=== PATIENT | female | born 1965 | race Caucasian/White ===

== ENCOUNTER → 2018-03-24 07:01 | Outpatient (CLI) | payer BC, SELFPAY ==
[2018-03-24 09:38] LABS: Anion Gap 8 (5-15); BUN 8 mg/dL (7-18); BUN/Creat Ratio 13.9 RATIO (10-20); Chloride 104 mmol/L (98-107); Cholesterol 183 mg/dL (200); Creatinine, Serum 0.58 mg/dL (0.55-1.02); EST Glomerular Filtration Rate 117 mL/min (>60); Est Glom Filt Rate - Afr Amer 141 mL/min (>60); Glucose 92 mg/dL (74-106); High Density Lipoprotein 32 mg/dL; Potassium 3.9 mmol/L (3.5-5.1); Sodium Level 140 mmol/L (136-145); Thyroid Stim Hormone (TSH) 4.23 uIU/mL (0.358-3.74); Triglycerides 185 mg/dL; Very Low Density Lipoprotein 37 mg/dL (5-40)
[2018-03-24 12:33] LABS: Vitamin D,25 Hydroxy 52.7 ng/mL (29.95-100.01)
--- OUTSIDE RECORDS SUMMARY | 2018-05-18 18:17 | XMS RPT_ITS ---
:1965 Author Organization OHIP Care Team Providers Name Role Phone Lorenzo, Dr. Avelino Mcguire Attending Unavailable Lorenzo, Dr. Avelino Mcguire Admitting Unavailable Lorenzo, Dr. Avelino Mcguire Admitting Unavailable Lorenzo, Dr. Avelino Mcguire Attending Unavailable Nichole Conde Attending Unavailable Jomar Block Primary Care Unavailable Jomar Block Primary Care Unavailable London Soria Attending Unavailable Dick Corrigan Attending Unavailable Dick Corrigan Referring Unavailable Dick Corrigan Primary Care Unavailable NICHOLE CYR (PA-C) Referring Unavailable NICHOLE CYR (PA-C) Referring Unavailable CALIXTO MORRIS Referring Unavailable AVELINO PRO Referring Unavailable CALIXTO MORRIS Referring Unavailable CALIXTO MORRIS Attending Unavailable CALIXTO MORRIS Referring Unavailable CALIXTO MORRIS Attending Unavailable CALIXTO MORRIS Referring Unavailable CALIXTO MORRIS Attending Unavailable CALIXTO MORRIS Referring Unavailable PROBLEMS PROBLEMS DATE TYPE CONDITION / CODE ATTENDING STATUS SOURCE Unknown Z00.00 - Encounter Dick Corrigan Active [place] 8 for general [facility] [place] without abnormal Repository findings / Z00.00(ICD-10) Final Decreased libido / Dr. Lorenzo Active [place] 8 diagnosis R68.82(ICD-10) [facility] (discharge) Repository Final Pain in unspecified Dr. Lorenzo Active [place] 8 diagnosis joint / [facility] (discharge) M25.50(ICD-10) Repository Final Malignant neoplasm of Dr. Lorenzo Active [place] 8 diagnosis unspecified ovary / [facility] (discharge) C56.9(ICD-10) Repository Final Solitary pulmonary Dr. 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 [place] [facility] Main coronary artery [place] without angina Repository pectoris / I25.10(ICD-10) Active Unknown / NA Active [place] 8 UNK(Unknown) Clinic Main [place] Repository Admitting Unknown / CALIXTO MORRIS Active [place] [address] diagnosis UN(Unknown) [facility] System Repository Active Nonrheumatic mitral NA Active [place] 8 (valve) insufficiency Clinic Main / I34.0(ICD-10) [place] Repository Active Essential (primary) NA Active [place] 8 hypertension / Clinic Main I10(ICD-10) [place] Repository Active Chest pain, NA Active [place] 8 unspecified / Clinic Main R07.9(ICD-10) [place] Repository Unknown R07.89 - Other chest London Soria Active [place] pain / R07.89(ICD-10) [facility] Repository Unknown Z79.811 - senior customer service representative Josephine DOAN, Active [place] (current) use of [facility] aromatase inhibitors [facility] / Z79.811(ICD-10) Repository Unknown R07.81 - Pleurodynia Josephine LAST MODEL DEPARTMENT SUPERVISOR, Active [place] / R07.81(ICD-10) [facility] Repository Active senior customer service representative (current) NA Active [place] [address] use of aromatase Clinic Main inhibitors / [place] Z79.811(ICD-10) Repository Active Pleurodynia / NA Active [place] 7 R07.81(ICD-10) Clinic Main [place] Repository PROCEDURES PROCEDURES No Procedure Records FoundRESULTS RESULTS BASIC METABOLIC Collected: 03/24/2018 Status: F Source: [place] PROFILE (BMP) 7:11 AM [facility] REPOSITORY TYPE CODE TESTS RESULT OUT OF RANGE REFERENCE UNITS LAB L501.0100 74-106 mg/dL Normal GLU 92 Result Comment: Please note revised GLUCOSE reference range effective 2017. LAB L501.1000 7-18 mg/dL Normal BUN 8 LAB L501.1100 0.55-1.02 mg/dL Normal CREAT,SERUM 0.58 Result Comment: The validity of the calculated GFR AND GFRAA in patients over 70 years has not been determined. Clinical correlation is essential. LAB L501.1110 >60 mL/min Normal EST GFR 117 Result Comment: Non- GFR Calc LAB L501.1115 >60 mL/min Normal EST GFR - AA 141 Result Comment: GFR Calc LAB L501.1300 10-20 RATIO Normal BUN/CRE 13.9 LAB L501.2200 8.5-10.1 mg/dL CA Normal 9.0 LAB L501.5300 136-145 mmol/L NA Normal 140 LAB L501.5600 3.5-5.1 mmol/L K Normal 3.9 LAB L501.5900 98-107 mmol/L CL Normal 104 LAB L501.6100 21.0-32.0 mmol/L Normal CO2 28.0 LAB L501.6200 5-15 Normal GAP 8 Performed By: #### L500.2500, L500.4100, L501.9520 #### [facility] [address] [place], [place], [address] LIPID PROFILE Collected: 03/24/2018 Status: F Source: [place] 7:11 AM [facility] REPOSITORY TYPE CODE TESTS RESULT OUT OF RANGE REFERENCE UNITS LAB L501.4900 200 mg/dL Normal CHOL 183 Result Comment: <200 mg/dL Desirable 200-240 mg/dL Borderline >240 mg/dL High Risk LAB L501.5000 mg/dL Normal TRIG 185 Result Comment: The drugs N-Acetylcysteine and Metamizole may falsely depress this assay. Serum Triglycerides Reference Interval Normal <150 mg/dL Borderline high 150 - 199 mg/dL High 200 - 499 mg/dL Very High > or = 500 mg/dL LAB L501.6400 mg/dL Low HDL 32 Result Comment: The drugs N-Acetylcysteine and Metamizole may falsely depress this assay. Reference Range HDL <40 mg/dL Low HDL Cholesterol HDL >or= 60 mg/dL High HDL Cholesterol LAB L501.6500 0-130 mg/dL Normal LDL 114 LAB L501.6600 5-40 mg/dL Normal VLDL 37 Performed By: #### L500.2500, L500.4100, L501.9520 #### [facility] [address] [place], [address] THYROID STIM HORMONE Collected: 03/24/2018 Status: F Source: [place] (TSH) 7:11 AM [facility] REPOSITORY TYPE CODE TESTS RESULT OUT OF RANGE REFERENCE UNITS LAB L501.9520 0.358-3.74 uIU/mL High TSH 4.23 Performed By: #### L500.2500, L500.4100, L501.9520 #### [facility] [address] [place], [place], [address] VITAMIN D,25 HYDROXY Collected: 03/24/2018 Status: F Source: [place] 7:11 AM [facility] REPOSITORY TYPE CODE TESTS RESULT OUT OF RANGE REFERENCE UNITS LAB L506.1000 29.95-100.01 ng/mL Normal Vitamin D 52.7 25-OH Result Comment: Vitamin D 25(OH) Status Range Deficiency <20 ng/mL (50nmol/L) Insuffciency 20 - 30 ng/mL (50 - 75 nmol/L) Sufficiency 30 - 100 ng/mL (75 - 250 nmol/L) Toxicity >100 ng/mL (>250 nmol/L) Performed By: #### L506.1000 #### [facility] [address] [place], [address] ESTRADIOL Collected: 03/22/2018 Status: F Source: [place] 1:55 PM [facility]OSPITALS REPOSITORY TYPE CODE TESTS RESULT OUT OF REFERENCE UNITS RANGE LAB ESTRA(LOIN pg/mL C) ESTRADIOL 14 Result Comment: Patients receiving more than 5 mg/day of biotin may have interference in test results. A sample should be taken no sooner than eight hours after previous dose. Contact [phone] for additional information. REF VALUES FOLLICULAR PHASE 20-144 MID CYCLE 64-357 LUTEAL PHASE 56-214 POSTMENOPAUSE < 32 PREPUBERTY < 20 MALE 10-18Y < 20 ADULT MALE < 40 Performed By: #### ESTRA #### [facility] [address] [place] [address] CLINIC NOTE - ROCKBOARD LATHER Observed: 03/22/2018 Status: COMPLETED Source: [place] ONC-FOLLOW UP VISIT 1:15 PM HOSPITALS REPOSITORY Patient Visit Information: Onco- Fertility: Visit Type: Follow Up Visit Patient Visit Info: Vitals: Temp: 36.8 HR: 74 RR: 18 BP: 158/89 SPO2%: 100 Measurements: HT(cm): 163 WT(kg): 81.7 BSA: 1.92 BMI: 30.7 Last 3 Weights & Heights: Date: Weight/Scale Type:Height: 22-Mar-2018 12:5181.7 kg / standing cm 14-Sep-2017 14:4088.1 kg / standing cm History of Present Illness: Patient Information: AYAH GOODE is a 52 year old Female Chief Complaint: Here for a follow-up visit Treatment History: 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 Initial treatment was with a partial oophorectomy. In July 2009 she underwent a laparotomy, hysterectomy, bilateral salpingo-oophorectomy omentectomy, diaphragm stripping and peritoneal washings. She had a granulosa cell tumor in the right ovary which had ruptured. No evidence of cancer involving other specimens. She was followed without additional treatment and was monitored with inhibin B levels and estradiol levels. In July 2014 her inhibin was 20, having been under 10 for prior few years. CAT scan in July 2014 showed a 3 cm lobular soft tissue mass between the bladder and sigmoid colon. She was taken to the operating room at the [facility] on September 01, 2014. She underwent resection of a recurrent granulosa cell tumor to no visible disease. When seen for a postoperative assessment by her gynecologic oncologist, discussion of adjuvant therapy included participation in GOG trial 264, randomizing patients between bleomycin, etoposide, and cis- big lagoon versus paclitaxel and carboplatin. She was not willing to undergo chance of randomization and was leaning against having chemotherapy. She spent some time reviewing other options, including speaking to friends on a granulosa cell tumor support group and has began treatment with letrozole, 2.5 mg daily. Following surgery, her tumor was assessed for estrogen and progestin receptors and found to be positive for both estrogen and progestin receptors, with estrogen receptor positivity 1-2+, and stronger progesterone receptor expression. Tumor was also sent for genetic testing, and these results were reviewed showing presence of progesterone receptor, as well as a variety of other gene abnormalities suggesting possible benefit of drugs including big lagoon, taxanes, gemcitabine, Doxil, and hormonal agents including letrozole or tamoxifen. CT of the abdomen and pelvis on January 02, 2015 showed no evidence of relapse of cancer. She had evidence of fatty liver. No ascites. Inhibin B level is less than 10, and estradiol is less than 12 on testing in August 2015. Anti-mullerian hormone less than 0.015. January 12, 2016, estradiol 21. Anti-mullerian hormone less than 0.015. Inhibin B less than 10 CT scan on January 26, 2016 shows no evidence of recurrent disease in the abdomen or pelvis. There was a small indeterminant left pulmonary nodule measuring 2 mm. This may be new. She has a stable right nodule, probably a granuloma, measuring 7 mm. Inhibin B August 15, 2016 less than 10 Anti mullerian hormone August 15, 2016 less than 0.015 Estradiol August 15, [address] scan omentum pelvis August 03, 2016 no evidence of developing recurrent disease. Inhibin B February 10, 2017 less than 10 Anti-mllerian hormone February 10, 2017 less than 0.015 Inhibin B, anti-mullerian hormone, and estradiol levels on August 25, 2017 were normal, and identical to values obtained in July 2016 Inhibin B, anti-mullerian hormone on February 09, 2018 were normal, and identical to values obtained in August 2017 Allergies and Outpatient Medication Profile: Allergies: tetracycline: Drug, Rash, Active ampicillin: Drug, Rash, Active erythromycin: Drug, Rash, Active Sulfac 10%: Drug, Rash, Active doxycycline: Drug, Rash, Active Outpatient Medication Profile: * Patient Currently Takes Medications as of 22-Mar-2018 12:53 documented in Structured Notes letrozole 2.5 mg oral tablet: 1 tab(s) orally once a day, Start Date: 19-Jun-2017 Interval History, ROS and Problem List: Interval History and ROS: Interval History and ROS Patient reports she continues to have side effects related to letrozole including joint pain, hair loss, foggy memory. She also has anxiety but is not interested in medications. She took the month of December 2017 off and did not take her letrozole due to family issues and states her memory cleared up. She is anxious when she is not on the medication though. System ReviewAll other systems have been reviewed and are negative for complaint. Problem List: Medical History: Nodule of left lung: Status: Active Decreased libido: Status: Active Joint pain following chemotherapy: Status: Active Patient on antineoplastic chemotherapy regimen: Status: Active Malignant neoplasm of ovary: Status: Active Family History: Family History: No Family History items are recorded in the problem list. Physical Exam: Constitutional: Well developed, awake/alert/oriented x3, no distress, alert and cooperative Eyes: PERRL, EOMI, clear sclera ENMT: mucous membranes moist, no apparent injury, no lesions seen Head/Neck: Neck supple, no apparent injury, thyroid without mass or tenderness, No JVD, trachea midline, no bruits Respiratory/Thorax: Respirations unlabored. Chest clear. Cardiovascular: Regular rate and rhythm. No audible murmur. No jugular venous distention. Gastrointestinal: Abdomen obese, nontender. No palpable masses. No ascites noted. Liver and spleen not enlarged or tender. No visible hernia. Genitourinary: Vulva appears normal. Urethra and bladder nontender without palpable abnormality. Vagina no evidence of cancer. Cervix and uterus surgically absent. No adnexal masses felt. Evidence of prior hemorrhoids, but no actively thrombosed external hemorrhoids. Rectal exam normal without blood in stool. Musculoskeletal: ROM intact, no joint swelling, normal strength Extremities: No swelling or phlebitis or edema. Neurological: alert and oriented x3, intact senses, motor, response and reflexes, normal strength Lymphatic: No adenopathy in the neck or groin. Psychological: Alert and cooperative. Skin: No rash ulcers or jaundice. Health Screening: LMP [id number] Mammography Resultsunknown PAP [id number] Social History: Smoking: Smoking Statussmoking status unknown Results: Lab Results: Lab Results: Results: CEA date/time 09-Feb-2018 09:53 N/A CA19-9 date/time 09-Feb-2018 09:53 N/A CA125 date/time 09-Feb-2018 09:53 N/A InhibinA date/time 09-Feb-2018 09:53 N/A InhibinB date/time 09-Feb-2018 09:53 <10 LDH date/time 15-Aug-2016 00:00 N/A AFP date/time 09-Feb-2018 09:53 N/A b-HcG date/time 09-Feb-2018 09:53 N/A Assessment and Plan: Assessment: History of recurrent granulosa cell cancer of the ovary. Most recent recurrence confirmed during surgery in August 2014. Since this time, she has been receiving adjuvant letrozole. No evidence of recurrent disease on clinical examination or rising inhibin B or anti-mullerian hormone levels. CT scan in July 2016 showed no evidence of disease. Today's examination shows no evidence of disease. Estriol was mistakenly drawn instead of estradiol on January's labs. Will order estradiol level today. I have asked her to see me in 6 months, with usual laboratory studies obtained prior to that visit. Select Yes when ready to send to Provider(s) Listed Above: Note sent to providers named above Electronic Signatures: Fariha Paulson (Fellow)) (Signed 22-Mar-2018 14:13) Authored: Patient Visit Information, History of Present Illness, Allergies and Outpatient Medication Profile, Interval History, ROS and Problem List, Physical Exam, Health Screening, Social History, Results, Assessment and Plan, Attestation Avelino Pro) (Signed 22-Mar-2018 17:58) Authored: Interval History, ROS and Problem List, To Send Document via Auto Fax Co-Signer: Patient Visit Information, Interval History, ROS and Problem List, Physical Exam, Assessment and Plan, Attestation Last Updated: 22-Mar-2018 17:58 by Avelino Pro) CLINIC NOTE - Observed: 03/22/2018 Status: UNK Source: [place] [place] 12:51 PM [facility]OSPITALS REPOSITORY Patient Visit Information: Visit TypeFollow Up Visit Patient StatesMs. Goode is here for Dr. casanova. Source of Informationpatient Admission Information: Admission Since Last VisitNo Assigned Clinic Room #[place] Vital Signs: Temp (degrees C)36.8 degrees C Temperaturetympanic Heart Rate (beats/min)74 beats per minute Respiration (breaths/min)18 breath per minute BP Systolic (mm Hg)Image has been removed. 158 mmHg BP Diastolic (mm Hg)89 mmHg BP Mean (mm Hg)Image has been removed. 112 mmHg Height in cm163 centimeter(s) Height Methodmeasured Weight in kg81.7 kilogram(s) Weight Methodstanding scale BMI (kg/m2)30.7 BSA (m2)1.92 SpO2 (%)100 % SpO2 Patient Onroom air Pain Screening: Patient States Painno (0) Health Screening: LMP [id number] Mammography Resultsunknown PAP [id number] Heel Former for intimate exam offered to patient: Patient hasdeclined Allergies: tetracycline: Drug, Rash, Active ampicillin: Drug, Rash, Active erythromycin: Drug, Rash, Active Sulfac 10%: Drug, Rash, Active doxycycline: Drug, Rash, Active Outpatient Medication Profile: * Patient Currently Takes Medications as of 14-Sep-2017 14:47 documented in Structured Notes letrozole 2.5 mg oral tablet: 1 tab(s) orally once a day, Start Date: 19-Jun-2017 Notification: NotificationsAnnual Screens Due Dates Advanced Directives: September 14, 2018 Family Violence: September 14, 2018 Depression: September 14, 2018 Substance Use - Alcohol: Due Now Substance Use - Drugs: Due Now Nutrition: Due Now Learning: Due Now Falls: Have you fallen in the last 6 monthsno Do you have a fear of fallingno Do you feel you need assistanceno Is the patient using an assistive deviceno Not a falls riskimplement environmental risk factors interventions Electronic Signatures: Callie Garcia (WOOD MACHINE CARVER ASST) (Signed 22-Mar-2018 12:55) Authored: Patient Visit Information, Vital Signs, Health Screening, Heel Former, Allergies, Outpatient Medication Profile, Adult Admission Risk Screen Last Updated: 22-Mar-2018 12:55 by Callie Garcia (WOOD MACHINE CARVER ASST) ESTRIOL Collected: 02/09/2018 Status: CANCELLED Source: [place] 9:53 [facility] REPOSITORY Order Comment: TEST ESTRIOL WAS CANCELLED, 03/22/2018 13:50 INCORRECT TEST PERFORMED. TYPE CODE TESTS RESULT OUT OF REFERENCE UNITS RANGE LAB ESTR(LOINC ng/mL ) ESTRIOL Canceled Result Comment: Gestational Median Central 95% Range Week 27 4.6 2.6 - 7.1 28 4.7 2.6 - 7.8 29 5.0 2.6 - 8.6 30 5.5 2.7 - 9.6 31 6.1 2.9 - 11.0 32 6.9 3.2 - 12.7 33 8.0 3.4 - >13.3 34 9.3 3.7 - >13.3 35 11.3 4.3 - >13.3 36 >13.3 5.3 - >13.3 37 >13.3 6.2 - >13.3 38 >13.3 7.4 - >13.3 39 >13.3 8.1 - >13.3 40 >13.3 8.5 - >13.3 Note: Due to fmpcuep-pz-vugafem variability and the overlap of reference ranges, the pattern generated by serial determinations is generally of greater clinical significance than isolated measurements. This is a corrected result. Previous value was <0.1, verified at 02/12/2018 17:07 Performed By: #### ESTR #### [facility] [address] [place], [place] [id number] INHIBIN B Collected: 02/09/2018 Status: F Source: [place] 9:53 [facility] REPOSITORY TYPE CODE TESTS RESULT OUT OF REFERENCE UNITS RANGE LAB INHBB(LOINC pg/mL ) INHIBIN B <10 Result Comment: Sample is slightly lipemic. Lipemia may affect results. INTERPRETIVE INFORMATION: Inhibin B MALE: 0-6 years ................. 40 - 630 pg/mL 7-10 years ................ 35 - 170 pg/mL 11-18 years ............... 50 - 475 pg/mL 19-45 years ............... 40 - 450 pg/mL Greater than or equal to 46 years ........ less than 200 pg/mL FEMALE: 0-6 years ................. less than 73 pg/mL 7-10 years ................ less than 130 pg/mL 11-12 years ............... less than 186 pg/mL 13-18 years ............... less than 360 pg/mL Premenopausal ............. less than 290 pg/mL Follicular phase........... 10 - 290 pg/mL Postmenopausal ............ less than or equal to 16 pg/mL This test is performed using the Kavon Humbird Inhibin B TEREZA kit. Values obtained with different methodologies or kits cannot be used interchangeably. Test developed and characteristics determined by [facility]. See Compliance Statement D: [facility]/ Performed by [facility], [address] [place] [id number] [email or web address], Williams Dunaway MD - Lab. Director Performed By: #### INHBB #### [facility] [address] [place] [id number] ANTI MULLERIAN HORMONE Collected: 02/09/2018 Status: F Source: [place] 9:53 AM HOSPITALS REPOSITORY TYPE CODE TESTS RESULT OUT OF REFERENCE UNITS RANGE LAB AMH(LOINC) ng/mL ANTI MULLERIAN <0.015 HORMONE Result Comment: For assays employing antibodies, the possibility exists for interference by heterophile antibodies in the samples.1 1. Blayne Mayo. Interferences in Immunoassays - still a threat. Clin. Chem. 2000; 46: 6593-0528. Reference Range: Females 47 - 54y: <= 0.82 Median <0.03 AMH concentrations of >= 1.06 ng/mL is correlated with a better response to ovarian stimulation, produced more retrievable oocytes and higher odds of live according to Syed et al. Fertility and Sterility. 2010: 94:4328-7815. The current AMH test method correlates with the study method with a slope of 0.94. Females at risk of ovarian hyperstimulation syndrome or polycystic ovarian syndrome (PCOS) may exhibit elevated serum AMH concentrations. AMH levels from PCOS patients may be 2 to 5 fold higher than age-appropriate reference interval values. Granulosa cell tumors of the ovary may secrete AMH along with other tumor markers. Elevated AMH is not specific for malignancy, and the assay should not be used exclusively to diagnose or exclude an AMH-secreting ovarian tumor. Performed By: #### AMH #### [facility] [place], [place] [id number] CNNURSE Observed: 01/26/2018 Status: COMPLETED Source: [place] 4:15 PM [facility] REPOSITORY Nurse Visit (CAWSTR) AYAH GOODE ([id number]) 1965 F Date Time Provider Department 01/26/18 4:15 PM NURSE CARD [facility] CAMPU[facility] CAWSTR During your visit today, we recorded the following information about you: Cedric Montero RN 01/26/2018 3:05 PM Signed Ekg completed per order. Pt tolerated procedure without distress. Cedric Montero RN Referring Provider: CALIXTO MORRIS [[id number]] Allergies As of Date: 01/26/2018 Noted Allergy Reaction AMOXACILLIN (AMOXICILLIN) 06/09/2009 2 - Rash 10 - Anaphylaxis Comments: full body rash that lasted for 6 weeks. DOXYCYCLINE HYCLATE 06/09/2009 16 - Unknown ERYTHROMYCIN 06/29/2009 8 - GI Upset SULFA (SULFONAMIDE ANTIBIOTICS) 06/15/2009 2 - Rash TETRACYCLINE 06/09/2009 16 - Unknown Date Reviewed: 01/26/2018 Reviewed by: Cedric Montero RN - Fully Assessed Reason for Visit: Nurse Visit [792] Visit Diagnosis:SVT (supraventricular tachycardia) (HCC) [I47.1] Order(s):ECG COMPLETE W INTERPRETATION [ECG01] Order #: [id number] Prescriptions as of 01/26/2018 Sig: CYANOCOBALAMIN (VIT B-12) 1,0* Dissolve under the tongue onc* BIOTIN 5,000 MCG SUBLINGUAL T* Dissolve under the tongue. IBUPROFEN 800 MG TABLET Take 1 tablet by mouth every * Patient not taking: Reported on 01/26/2018 BENZONATATE 100 MG CAPSULE Take 1 capsule by mouth three* Patient not taking: Reported on 01/26/2018 CHOLECALCIFEROL (VITAMIN D3) * Take by mouth. NITROGLYCERIN 0.4 MG SUBLINGU* Dissolve 1 tablet under the t* JUICE PLUS FIBRE ORAL Take 12 tablets by mouth once* K-NXSYJB-J-CYSTEINE MISC 600 mg once daily. METFORMIN ER 500 MG 24 HR TAB* Take 1,000 mg by mouth twice * LETROZOLE 2.5 MG TABLET Take 1 tablet by mouth once d* THIOCTIC ACID 300 MG CAPSULE Take 1 capsule by mouth once * Problem List As Of Date 01/26/2018 Noted Resolved Mitral Valve Prolapse [I34.1] INVALID FOR* More... Granulosa Cell Carcinoma of Ovary [C56.9] INVALID FOR* Malignant Neoplasm of Ovary [C56.9] INVALID FOR* Visit Notes: >> Cedric Montero RN MonJan 26, 2018 3:05 PM Status: Signed Ekg completed per order. Pt tolerated procedure without distress. Cedric Montero RN Encounter Status:Closed by CEDRIC MONTERO RN on 01/26/18 PROGRESS Observed: 01/26/2018 Status: COMPLETED Source: [place] 2:42 PM [facility] [place] REPOSITORY O ID: [id number] Author: Calixto Morris Service: (none) Author Type: Physician Type: Progress Notes Filed: 01/26/2018 6:09 PM Note Text: PERTINENT CARDIAC HISTORY SVT SAEED - CPAP HTN MVP DM HL - declines Chest pain ADHERENCE TO GUIDELINES TELLY-I or ARB for HF with prior LVEF<40 (NQF 0081) - N/A ASA or Plavix for ASHD (NQF 0067) - N/A Beta alexandra for ASHD with prior MN or prior LVEF<40 (NQF 0070) - N/A Beta alexandra for HF with prior LVEF<40 (NQF 0083) - N/A TELLY-I or ARB for ASHD with DM or prior LVEF<40 (NQF 0066) - N/A Statin therapy for ASHD or FHL or DM - declines BMI documented and plan if >25 (NQF 0421) - lifestyle recommendation form Tobacco use screening and referral (NQF 0028) - lifestyle recommendation form Recommendation for whole food, plant based diet - lifestyle recommendation form CLINICAL IMPRESSION/PLAN: Ayah Goode is doing very well. She was commended on her changes in her nutrition. I've encouraged her to continue her current medication. We discussed support groups which are available for her. Her has also adopted nutritional changes. I will see her in 8 months or as needed. Written and verbal health teaching given to patient, patient verbalizes understanding and agrees with treatment plan. DIAGNOSIS FOR VISIT: SVT Chest pain HISTORY OF PRESENT ILLNESS Ayah Goode returns for follow-up of multiple cardiac issues, as noted above. She has been on a whole food, plant based diet for the last 8 months. She reports that her blood sugars have been much better controlled. Her blood pressure has normalized and she is off her beta alexandra. She has lost over 35 pounds and is feeling marvelous. She denies chest pain. She's had no recent palpitations. ALLERGIES: ALLERGIES Allergen Reactions - Amoxacillin [Amoxic* Rash, Anaphylaxis full body rash that lasted for 6 weeks. - Doxycycline Hyclate Unknown - Erythromycin GI Upset - Sulfa (Sulfonamide * Rash - Tetracycline Unknown CURRENT OUTPATIENT MEDICATIONS: Cyanocobalamin (VITAMIN B-12) 1,000 mcg subl Dissolve under the tongue once daily. biotin 5,000 mcg subl Dissolve under the tongue. Cholecalciferol, Vitamin D3, 10,000 unit cap Take by mouth. nitroglycerin sublingual (NITROSTAT) 0.4 mg SL tablet Dissolve 1 tablet under the tongue as needed for Chest Pain. If no pain relief call 911. NUTRITIONAL SUPPLEMENT/FIBER (JUICE PLUS FIBRE ORAL) Take 12 tablets by mouth once daily. letrozole (FEMARA) 2.5 mg tablet Take 1 tablet by mouth once daily. ibuprofen (MOTRIN) 800 mg tablet Take 1 tablet by mouth every 8 hours as needed for Pain (with food.). benzonatate (TESSALON PERLE) 100 mg capsule Take 1 capsule by mouth three times daily as needed. ACETYLCYSTEINE (X-TPSTDR-U-CYSTEINE MISC) 600 mg once daily. metFORMIN ER (GLUMETZA) 500 mg 24 hr tablet Take 1,000 mg by mouth twice daily with meals. THIOCTIC ACID (ALPHA LIPOIC ACID) 300 mg cap Take 1 capsule by mouth once daily. PHYSICAL EXAMINATION: VITAL SIGNS: BP 128/70 Pulse 80 Wt 185 lb 4.8 oz (84.1kg) LMP 02/23/2009 Chest: Clear to auscultation. Trachea is midline. Air entry is equal. Cardiac: Regular rhythm. S1 and S2 are normal. PMI is nondisplaced. There is a soft systolic ejection murmur. Carotids are brisk without bruits. JVP is less than 10 cm. Abdomen: Soft and nontender. There are no pulsatile masses or bruits. No liver enlargement. Bowel sounds are active. Extremities: No edema. Pulses are intact and symmetrical. Recent labs were reviewed. LDL is stable at 102. EKG shows sinus rhythm with minor repolarization noted. There is no significant change. Electronically Signed: Calixto Morris MD January 26, 2018 2:42 PM CC: Aveilno Pro MD EKG1 Observed: 01/26/2018 Status: F Source: [facility] 2:21 PM [facility] REPOSITORY NAME : AYAH GOODE PID : [id number] : 1965 Gender : Female Race : ORD : Procedure Date : Jan 26 2018 14:21:31 Edit Date : Jan 30 2018 10:00:13 Diagnosis:NORMAL SINUS RHYTHM LOW VOLTAGE QRS, CONSIDER PULMONARY DISEASE, PERICARDIAL EFFUSION, OR NORMAL VARIANT NONSPECIFIC T WAVE ABNORMALITY ABNORMAL ECG NO SIGNIFICANT CHANGE FROM PREVIOUS ECG Confirmed by CALIXTO MORRIS MD ([id number]) on 01/30/2018 10:00:11 AM Ventricular Rate : 66 BPM Atrial Rate : 66 BPM P-R Interval : 172 ms QRS Duration : 86 ms Q-T Interval : 376 ms QTC Calculation(Bezet) : 394 ms P [place] : 57 degrees R [place] : 12 degrees T [place] : 12 degrees Test Reason : Location : 136 : [facility] Overread By : CALIXTO MORRIS MD Edited By : CALIXTO MORRIS MD Referred By : CALIXTO MORRIS Acquired by : MALINDA BUTLER Observed: 01/26/2018 Status: COMPLETED Source: [facility] 1:45 PM [facility] REPOSITORY Office Visit (CAWSTR) AYAH GOODE ([id number]) 1965 F Date Time Provider Department 01/26/18 1:45 PM CALIXTO MORRIS During your visit today, we recorded the following information about you: Pulse Blood pressure Weight 80/minute 128/70 84.1 kg Calixto Morris MD 01/26/2018 2:41 PM Signed LIFESTYLE CHANGE A healthy lifestyle is the most important component of your overall treatment plan. Please give serious thought to the following areas and commit to making collar setter changes. EAT A WHOLE FOOD, PLANT BASED DIET The nutrition your body gets is more important than the medicine you take. What matters most is the overall way you eat. We encourage you to minimize the use of animal products (which include dairy and all meats except fatty fish) and use whole, unprocessed plant foods to provide your protein, vitamins and other nutrients. We have a lot of information to share with you on this topic. This is not a diet. It is a way of life that you will keep with you. EXERCISE REGULARLY It is not important to spend hours in the gym, lifting weights and perspiring heavily. A total of 2-3 hours per week of aerobic (causing you to be moderately short of breath) exercise is sufficient to improve your health. Talk to us before you begin a new exercise program, if you have heart disease or experience shortness of breath or chest pain. REDUCE STRESS Chronic emotional and physical stress leads to disease. Ways of reducing stress include meditation, visualization, prayer, yoga and other forms of relaxation therapy. Consistency is the whitten. Find a technique that works for you and do it every day. CULTIVATE RELATIONSHIPS Loneliness and isolation have a major negative impact on health. Seek out others who can love, care for and nurture you. Avoid hurtful relationships. MAINTAIN IDEAL BODY WEIGHT The best way to do this is to do all the things above. Our bodies naturally find the right weight if we keep moving and feed ourselves the right food. If your BMI is greater than 25, we strongly recommend a referral to a weight management program. Please speak to us or your family physician about available programs. AVOID NICOTINE IN ALL FORMS This includes all tobacco products, whether chewed, smoked, vaped, or rubbed on the skin. Smoking cessation programs, which can make use of tobacco substitutes, medications to suppress cravings and behavior management, are available. Please contact your family physician about programs in your area. Calixto Morris MD 01/26/2018 6:09 PM Signed PERTINENT CARDIAC HISTORY SVT SAEED - CPAP HTN MVP DM HL - declines Chest pain ADHERENCE TO GUIDELINES TELLY-I or ARB for HF with prior LVEF<40 (NQF 0081) - N/A ASA or Plavix for ASHD (NQF 0067) - N/A Beta alexandra for ASHD with prior MN or prior LVEF<40 (NQF 0070) - N/A Beta alexandra for HF with prior LVEF<40 (NQF 0083) - N/A TELLY-I or ARB for ASHD with DM or prior LVEF<40 (NQF 0066) - N/A Statin therapy for ASHD or FHL or DM - declines BMI documented and plan if >25 (NQF 0421) - lifestyle recommendation form Tobacco use screening and referral (NQF 0028) - lifestyle recommendation form Recommendation for whole food, plant based diet - lifestyle recommendation form CLINICAL IMPRESSION/PLAN: Ayah Goode is doing very well. She was commended on her changes in her nutrition. I've encouraged her to continue her current medication. We discussed support groups which are available for her. Her has also adopted nutritional changes. I will see her in 8 months or as needed. Written and verbal health teaching given to patient, patient verbalizes understanding and agrees with treatment plan. DIAGNOSIS FOR VISIT: SVT Chest pain HISTORY OF PRESENT ILLNESS Ayah Goode returns for follow-up of multiple cardiac issues, as noted above. She has been on a whole food, plant based diet for the last 8 months. She reports that her blood sugars have been much better controlled. Her blood pressure has normalized and she is off her beta alexandra. She has lost over 35 pounds and is feeling marvelous. She denies chest pain. She's had no recent palpitations. ALLERGIES: ALLERGIES Allergen Reactions - Amoxacillin [Amoxic* Rash, Anaphylaxis full body rash that lasted for 6 weeks. - Doxycycline Hyclate Unknown - Erythromycin GI Upset - Sulfa (Sulfonamide * Rash - Tetracycline Unknown CURRENT OUTPATIENT MEDICATIONS: Cyanocobalamin (VITAMIN B-12) 1,000 mcg subl Dissolve under the tongue once daily. biotin 5,000 mcg subl Dissolve under the tongue. Cholecalciferol, Vitamin D3, 10,000 unit cap Take by mouth. nitroglycerin sublingual (NITROSTAT) 0.4 mg SL tablet Dissolve 1 tablet under the tongue as needed for Chest Pain. If no pain relief call 911. NUTRITIONAL SUPPLEMENT/FIBER (JUICE PLUS FIBRE ORAL) Take 12 tablets by mouth once daily. letrozole (FEMARA) 2.5 mg tablet Take 1 tablet by mouth once daily. ibuprofen (MOTRIN) 800 mg tablet Take 1 tablet by mouth every 8 hours as needed for Pain (with food.). benzonatate (TESSALON PERLE) 100 mg capsule Take 1 capsule by mouth three times daily as needed. ACETYLCYSTEINE (O-GBBPFS-R-CYSTEINE MISC) 600 mg once daily. metFORMIN ER (GLUMETZA) 500 mg 24 hr tablet Take 1,000 mg by mouth twice daily with meals. THIOCTIC ACID (ALPHA LIPOIC ACID) 300 mg cap Take 1 capsule by mouth once daily. PHYSICAL EXAMINATION: VITAL SIGNS: BP 128/70 Pulse 80 Wt 185 lb 4.8 oz (84.1kg) LMP 02/23/2009 Chest: Clear to auscultation. Trachea is midline. Air entry is equal. Cardiac: Regular rhythm. S1 and S2 are normal. PMI is nondisplaced. There is a soft systolic ejection murmur. Carotids are brisk without bruits. JVP is less than 10 cm. Abdomen: Soft and nontender. There are no pulsatile masses or bruits. No liver enlargement. Bowel sounds are active. Extremities: No edema. Pulses are intact and symmetrical. Recent labs were reviewed. LDL is stable at 102. EKG shows sinus rhythm with minor repolarization noted. There is no significant change. Electronically Signed: Calixto Morris MD January 26, 2018 2:42 PM CC: Avelino Pro MD Referring Provider: SELF [[id number]] Allergies As of Date: 01/26/2018 Noted Allergy Reaction AMOXACILLIN (AMOXICILLIN) 06/09/2009 2 - Rash 10 - Anaphylaxis Comments: full body rash that lasted for 6 weeks. DOXYCYCLINE HYCLATE 06/09/2009 16 - Unknown ERYTHROMYCIN 06/29/2009 8 - GI Upset SULFA (SULFONAMIDE ANTIBIOTICS) 06/15/2009 2 - Rash TETRACYCLINE 06/09/2009 16 - Unknown Date Reviewed: 01/26/2018 Reviewed by: Cedric Montero RN - Fully Assessed Reason for Visit: Recheck [92] Primary Visit Diagnosis:SVT (supraventricular tachycardia) (HCC) [I47.1] Order(s):ECG COMPLETE W INTERPRETATION [ECG01] Order #: [id number] FUTURE Prescriptions as of 01/26/2018 Sig: CYANOCOBALAMIN (VIT B-12) 1,0* Dissolve under the tongue onc* BIOTIN 5,000 MCG SUBLINGUAL T* Dissolve under the tongue. CHOLECALCIFEROL (VITAMIN D3) * Take by mouth. NITROGLYCERIN 0.4 MG SUBLINGU* Dissolve 1 tablet under the t* JUICE PLUS FIBRE ORAL Take 12 tablets by mouth once* LETROZOLE 2.5 MG TABLET Take 1 tablet by mouth once d* IBUPROFEN 800 MG TABLET Take 1 tablet by mouth every * Patient not taking: Reported on 01/26/2018 BENZONATATE 100 MG CAPSULE Take 1 capsule by mouth three* Patient not taking: Reported on 01/26/2018 R-ZTFFKO-W-CYSTEINE MISC 600 mg once daily. METFORMIN ER 500 MG 24 HR TAB* Take 1,000 mg by mouth twice * THIOCTIC ACID 300 MG CAPSULE Take 1 capsule by mouth once * Problem List As Of Date 01/26/2018 Noted Resolved Mitral Valve Prolapse [I34.1] INVALID FOR* More... 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 Please give serious thought to the following areas and commit to making collar setter changes. EAT A WHOLE FOOD, PLANT BASED DIET The nutrition your body gets is more important than the medicine you take. What matters most is the overall way you eat. We encourage you to minimize the use of animal products (which include dairy and all meats except fatty fish) and use whole, unprocessed plant foods to provide your protein, vitamins and other nutrients. We have a lot of information to share with you on this topic. This is not a diet. It is a way of life that you will keep with you. EXERCISE REGULARLY It is not important to spend hours in the gym, lifting weights and perspiring heavily. A total of 2-3 hours per week of aerobic (causing you to be moderately short of breath) exercise is sufficient to improve your health. Talk to us before you begin a new exercise program, if you have heart disease or experience shortness of breath or chest pain. REDUCE STRESS Chronic emotional and physical stress leads to disease. Ways of reducing stress include meditation, visualization, prayer, yoga and other forms of relaxation therapy. Consistency is the whitten. Find a technique that works for you and do it every day. CULTIVATE RELATIONSHIPS Loneliness and isolation have a major negative impact on health. Seek out others who can love, care for and nurture you. Avoid hurtful relationships. MAINTAIN IDEAL BODY WEIGHT The best way to do this is to do all the things above. Our bodies naturally find the right weight if we keep moving and feed ourselves the right food. If your BMI is greater than 25, we strongly recommend a referral to a weight management program. Please speak to us or your family physician about available programs. AVOID NICOTINE IN ALL FORMS This includes all tobacco products, whether chewed, smoked, vaped, or rubbed on the skin. Smoking cessation programs, which can make use of tobacco substitutes, medications to suppress cravings and behavior management, are available. Please contact your family physician about programs in your area. Medications Discontinued During This Encounter atorvastatin (LIPITOR) 20 mg tablet 90 t* 3 04/21/2016 01/26/2018 Route: ORAL Sig: Take 1 tablet by mouth once daily. Patient not taking: Reported on 01/26/2018 Disc: Reason for discontinue is not on file. carvedilol (COREG) 6.25 mg tablet 05/29/2017 01/26/2018 Class: Med Update Route: ORAL Sig: Take 0.5 tablets by mouth once daily. Patient not taking: Reported on 01/26/2018 Disc: Reason for discontinue is not on file. Encounter Status:Closed by CALIXTO MORRIS MD on 01/26/18 LIPID PANEL, BASIC Collected: 01/23/2018 Status: F Source: [facility] 7:56 AM [facility] REPOS[facility]ORY TYPE CODE TESTS RESULT OUT OF REFERENCE UNITS RANGE LAB CHOL <200 mg/dL Cholesterol 179 Result Comment: <200 mg/dL, Desirable 200-239 mg/dL, Borderline high >239 mg/dL, High LAB TRIGLY <150 mg/dL Triglyceride High 216 Result Comment: <150 mg/dL, Normal 150-199 mg/dL, Borderline high 200-499 mg/dL, High >499 mg/dL, Very high LAB HDL >39 mg/dL HDL-Cholesterol Low 34 Result Comment: 40-59 mg/dL, Acceptable >59 mg/dL, High: Negative risk factor for coronary heart disease <40 mg/dL, Low: Positive risk factor for coronary heart disease LAB LDL <100 mg/dL LDL-Cholesterol High 102 Result Comment: <100 mg/dL, Optimal 100-129 mg/dL, Near optimal/above optimal 130-159 mg/dL, Borderline high 160-189 mg/dL, High >189 mg/dL, Very high Secondary prevention optimal LDL Cholesterol levels are recommended to be < 70 mg/dL LAB NONHDL <130 mg/dL Non HDL High Cholesterol 145 Result Comment: <130 mg/dL, Optimal 130-159 mg/dL, Near optimal/above optimal 160-189 mg/dL, Borderline high 190-219 mg/dL, High >219 mg/dL, Very high Secondary prevention optimal non HDL Cholesterol levels are recommended to be < 100 mg/dL LAB FT hrs Fasting Time 14 LAB VLDL <30 mg/dL High VLDL Cholesterol 43 LAB TCHDL <5.10 High TC:HDL Ratio 5.26 LAB LDLHDL <2.54 High LDL:HDL Ratio 3.00 Result Comment: Reference: 1. National Cholesterol Education Program ATP III Guideline At-A-Glance Quick Desk Reference: National Heart, Lung, and Blood Lawtell. National Institutes of Health. 2001: NIH Publication No. 01-3305. 2. An International Atherosclerosis Society position paper: global recommendations for the management of dyslipidemia: executive summary, Atherosclerosis. 2014: 232(2):410-413. Performed By: #### LIPB #### [facility] [address] [place] [address] BASIC METABOLIC PANL Collected: 10/10/2017 Status: F Source: [facility] 8:22 AM [facility] REPOSITORY TYPE CODE TESTS RESULT OUT OF REFERENCE UNITS RANGE LAB GLU 74-99 mg/dL High Glucose 110 Result Comment: The [place] Diabetes Association (ADA) provides guidance for cutoff values for fasting glucose and random glucose. The ADA defines fasting as no caloric intake for at least 8 hours. Fas ting plasma glucose results between 100 to 125 mg/dL indicate increased risk for diabetes (prediabetes). Fasting plasma glucose results greater than or equal to 126 mg/dL meet the criteria for diagnosis of diabetes. In the absence of unequivocal hyperglycemia, results should be confirmed by repeat testing. In a patient with classic symptoms of hyperglycemia or hyperglycemic crisis, random plasma glucose results greater than or equal to 200 mg/dL meet the criteria for diagnosis of diabetes. Reference: Standards of Medical Care in Diabetes 2016, [place] [employer] Association. Diabetes Care. 2016.39(Suppl 1). LAB BUN 7-21 mg/dL BUN 8 LAB CRET 0.58-0.96 mg/dL Creatinine 0.66 LAB NA 136-144 mmol/L Sodium 142 LAB K 3.7-5.1 mmol/L Potassium 4.4 LAB CL 97-105 mmol/L Chloride 104 LAB CO2 22-30 mmol/L CO2 28 LAB AGAP 9-18 mmol/L Anion Gap 10 LAB CA 8.5-10.2 mg/dL Calcium, Total 9.6 LAB GFRAA eGFR- Amer. >60 LAB GFRNAA . eGFR-All Other Races >60 Result Comment: eGFR (Estimated GFR) Units of measure: mL/min/1.73 meters squared eGFR is derived from the reexpressed MDRD Study equation using the following parameters: serum creatinine, age, gender and race. The creatinine assay has been calibrated to be traceable to IDMS. An eGFR <60 mL/min/1.73m2 for >3 months is consistent with chronic kidney disease. Refer to KDOQI guidelines for clinical interpretation. In patients with unstable renal function, e.g. those with acute kidney injury, the eGFR may not accurately reflect actual GFR. Performed By: #### BMP, ALT, CK, LIPB #### [facility] [address] [place], [place] [address] ALT Collected: 10/10/2017 Status: F Source: [facility] 8:22 AM [facility] REPOSITORY TYPE CODE TESTS RESULT OUT OF RANGE REFERENCE UNITS LAB ALT 7-38 U/L ALT 37 Performed By: #### BMP, ALT, CK, LIPB #### [facility] [address] [place], [place] [address] CK Collected: 10/10/2017 Status: F Source: [facility] 8:22 AM MAIN CAMPUS REPOSITORY TYPE CODE TESTS RESULT OUT OF RANGE REFERENCE UNITS LAB CK 42-196 U/L CK 97 Result Comment: Please note the updated, gender-specific reference range for this test (effective 04/07/2016). Performed By: #### BMP, ALT, CK, LIPB #### [facility] [address] [place], [place] [address] LIPID PANEL, BASIC Collected: 10/10/2017 Status: F Source: [facility]AY 8:22 AM [facility] [place] REPOSITORY TYPE CODE TESTS RESULT OUT OF REFERENCE UNITS RANGE LAB CHOL <200 mg/dL Cholesterol 168 Result Comment: <200 mg/dL, Desirable 200-239 mg/dL, Borderline high >239 mg/dL, High LAB TRIGLY <150 mg/dL Triglyceride High 175 Result Comment: <150 mg/dL, Normal 150-199 mg/dL, Borderline high 200-499 mg/dL, High >499 mg/dL, Very high LAB HDL >39 mg/dL HDL-Cholesterol Low 31 Result Comment: 40-59 mg/dL, Acceptable >59 mg/dL, High: Negative risk factor for coronary heart disease <40 mg/dL, Low: Positive risk factor for coronary heart disease LAB LDL <100 mg/dL LDL-Cholesterol High 102 Result Comment: <100 mg/dL, Optimal 100-129 mg/dL, Near optimal/above optimal 130-159 mg/dL, Borderline high 160-189 mg/dL, High >189 mg/dL, Very high Secondary prevention optimal LDL Cholesterol levels are recommended to be < 70 mg/dL LAB NONHDL <130 mg/dL Non HDL High Cholesterol 137 Result Comment: <130 mg/dL, Optimal 130-159 mg/dL, Near optimal/above optimal 160-189 mg/dL, Borderline high 190-219 mg/dL, High >219 mg/dL, Very high Secondary prevention optimal non HDL Cholesterol levels are recommended to be < 100 mg/dL LAB FT hrs Fasting Time 12 LAB VLDL <30 mg/dL High VLDL Cholesterol 35 LAB TCHDL <5.10 High TC:HDL Ratio 5.42 LAB LDLHDL <2.54 High LDL:HDL Ratio 3.29 Result Comment: Reference: 1. National Cholesterol Education Program ATP III Guideline At-A-Glance Quick Desk Reference: National Heart, Lung, and Blood Lawtell. National Institutes of Health. 2001: NIH Publication No. 01-3305. 2. An International Atherosclerosis Society position paper: global recommendations for the management of dyslipidemia: executive summary, Atherosclerosis. 2014: 232(2):410-413. 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 Initial treatment was with a partial oophorectomy. In July 2009 she underwent a laparotomy, hysterectomy, bilateral salpingo-oophorectomy omentectomy, diaphragm stripping and peritoneal washings. She had a granulosa cell tumor in the right ovary which had ruptured. No evidence of cancer involving other specimens. She was followed without additional treatment and was monitored with inhibin B levels and estradiol levels. In July 2014 her inhibin was 20, having been under 10 for prior few years. CAT scan in July 2014 showed a 3 cm lobular soft tissue mass between the bladder and sigmoid colon. She was taken to the operating room at the [facility] on September 01, 2014. She underwent resection of a recurrent granulosa cell tumor to no visible disease. When seen for a postoperative assessment by her gynecologic oncologist, discussion of adjuvant therapy included participation in GOG trial 264, randomizing patients between bleomycin, etoposide, and cis- [place] versus paclitaxel and carboplatin. She was not willing to undergo chance of randomization and was leaning against having chemotherapy. She spent some time reviewing other options, including speaking to friends on a granulosa cell tumor support group and has began treatment with letrozole, 2.5 mg daily. Following surgery, her tumor was assessed for estrogen and progestin receptors and found to be positive for both estrogen and progestin receptors, with estrogen receptor positivity 1-2+, and stronger progesterone receptor expression. Tumor was also sent for genetic testing, and these results were reviewed showing presence of progesterone receptor, as well as a variety of other gene abnormalities suggesting possible benefit of drugs including [place], taxanes, gemcitabine, Doxil, and hormonal agents including letrozole or tamoxifen. CT of the abdomen and pelvis on January 02, 2015 showed no evidence of relapse of cancer. She had evidence of fatty liver. No ascites. Inhibin B level is less than 10, and estradiol is less than 12 on testing in August 2015. Anti-mullerian hormone less than 0.015. January 12, 2016, estradiol 21. Anti-mullerian hormone less than 0.015. Inhibin B less than 10 CT scan on January 26, 2016 shows no evidence of recurrent disease in the abdomen or pelvis. There was a small indeterminant left pulmonary nodule measuring 2 mm. This may be new. She has a stable right nodule, probably a granuloma, measuring 7 mm. Inhibin B August 15, 2016 less than 10 Anti mullerian hormone August 15, 2016 less than 0.015 Estradiol August 15, [address] scan omentum pelvis August 03, 2016 no evidence of developing recurrent disease. Inhibin B February 10, 2017 less than 10 Anti-m?llerian hormone February 10, 2017 less than 0.015 Inhibin B, anti-mullerian hormone, and estradiol levels on August 25, 2017 were normal, and identical to values obtained in July 2016 Allergies and Outpatient Medication Profile: Allergies: tetracycline: Drug, Rash, Active ampicillin: Drug, Rash, Active erythromycin: Drug, Rash, Active Sulfac 10%: Drug, Rash, Active doxycycline: Drug, Rash, Active Outpatient Medication Profile: * Patient Currently Takes Medications as of 14-Sep-2017 14:47 documented in Structured Notes letrozole 2.5 mg oral tablet: Last Dose Taken: , 1 tab(s) orally once a day, Start Date: 19-Jun-2017 Interval History, ROS and Problem List: Interval History and ROS: ? Interval History and ROS Performance status 0. Tolerating letrozole without unexpected toxicity. Has noted some increase libido recently, and is unsure if this is a good thing or not, as she has been concerned that this could reflect increasing estrogen levels. Also wished to bring to my attention some small hyperpigmented spots on her labia that she has noticed recently. These are painless. She does have some painful hemorrhoids, bothering her bit more than usual. Hemorrhoids have been a chronic problem for quite some time but only not this uncomfortable. Denies rectal bleeding or vaginal bleeding. No increasing abdominal girth. No lower extremity tenderness or swelling. ? System Review All other systems have been reviewed and are negative for complaint. Problem List: Medical History: Nodule of left lung: Status: Active Decreased libido: Status: Active Joint pain following chemotherapy: Status: Active Patient on antineoplastic chemotherapy regimen: Status: Active Malignant neoplasm of ovary: Status: Active Family History: Family History: No Family History items are recorded in the problem list. Physical Exam: Constitutional: Well developed, awake/alert/oriented x3, no distress, alert and cooperative Here with her Eyes: PERRL, EOMI, clear sclera ENMT: mucous membranes moist, no apparent injury, no lesions seen Head/Neck: Neck supple, no apparent injury, thyroid without mass or tenderness, No JVD, trachea midline, no bruits Respiratory/Thorax: Respirations unlabored. Chest clear. Cardiovascular: Regular rate and rhythm. No audible murmur. No jugular venous distention. Gastrointestinal: Abdomen obese, nontender. No palpable masses. No ascites noted. Liver and spleen not enlarged or tender. No visible hernia. Genitourinary: Vulva shows 2 small vulvar varicosities, one on the left labia majora and one on the right labia majora. These each measures approximately 1-2 mm. These are nontender. These do not reflect hyperpigmented epithelial derived lesions. Urethra and bladder nontender without palpable abnormality. Vagina no evidence of cancer. Cervix and uterus surgically absent. No adnexal masses felt. Evidence of prior hemorrhoids, but no actively thrombosed external hemorrhoids. Rectal exam normal without blood in stool. Musculoskeletal: ROM intact, no joint swelling, normal strength Extremities: No swelling or phlebitis or edema. Neurological: alert and oriented x3, intact senses, motor, response and reflexes, normal strength Lymphatic: No adenopathy in the neck or groin. Psychological: Alert and cooperative. Skin: No rash ulcers or jaundice. Health Screening: ? LMP Comments 2003 ? Mammography Results unknown ? 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 Most recent recurrence confirmed during surgery in August 2014. Since this time, she has been receiving adjuvant letrozole. No evidence of recurrent disease on clinical examination or rising inhibin B or anti-mullerian hormone levels. CT scan one year ago showed no evidence of disease. Today's examination shows no evidence of disease. I explained the natural history of small vulvar varicosities. No treatment is necessary a strip on today's findings. She may discuss her hemorrhoid concern to her primary care doctor, or could see a representative government relations or general surgeon for further evaluation. There is no contraindication to treatment of hemorrhoids while on Femara. I have asked her to see me in 6 months, with usual laboratory studies obtained prior to that visit. Select Yes when ready to send to Provider(s) Listed Above: Note sent to providers named above Electronic Signatures: Avelino Pro) (Signed 14-Sep-2017 18:03) Authored: Patient Visit Information, History of Present Illness, Allergies and Outpatient Medication Profile, Interval History, ROS and Problem List, Physical Exam, Health Screening, Social History, Results, Assessment and Plan, To Send Document via Auto Fax Last Updated: 14-Sep-2017 18:03 by Avelino Pro) CLINIC NOTE - Observed: 09/14/2017 Status: UNK Source: [facility] 2:40 PM [facility] REPOSITORY Patient Visit Information: ? Visit Type Follow Up Visit ? Patient States Pt. here for 6 mo. follow-up visit. ? Source of Information patient ? Accompanied by spouse Admission Information: ? Admission Since Last Visit No Vital Signs: ? Temp (degrees C) 37.1 degrees C ? Temperature tympanic ? Heart Rate (beats/min) 82 beats per minute ? Respiration (breaths/min) 18 breath per minute ? BP Systolic (mm Hg) Image has been removed. 146 mmHg ? BP Diastolic (mm Hg) 90 mmHg ? BP Mean (mm Hg) Image has been removed. 108 mmHg ? Height in cm 163 centimeter(s) ? Height Method measured ? Height standing ? Weight in kg 88.1 kilogram(s) ? Weight Method standing scale ? BMI (kg/m2) 33.1 ? BSA (m2) 1.99 Pain Screening: ? Patient States Pain no (0) ? Pain Scale Used Numeric (0-10) Health Screening: ? LMP Comments 2003 ? Mammography Results unknown ? PAP Results 2009 Heel Former for intimate exam offered to patient: ? Patient has accepted ? 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 no Do you have a fear of falling? no Not a falls risk implement environmental risk factors interventions Is the patient using an assistive device no Do you feel you need assistance? no Are there cultural/spiritual/episcopal practices/values/needs important for us to know during your visit today no Annual: Healthcare POA no Are you or have you been threatened or abused physically,emotionally or sexually abused by anyone no Do you feel UNSAFE going back to the place you are living no During the past two weeks, have you felt down, depressed or hopeless no Have you had thoughts of harming anyone else no Have you had thoughts of harming yourself no During the past two weeks, have you felt little interest or pleasure doing things no Living Will no Living Will Forms declines more information Healthcare POA Forms declined more information Electronic Signatures: Florence Berry (SOLE) (Signed 14-Sep-2017 14:47) Authored: Patient Visit Information, Vital Signs, Health Screening, Heel Former, Allergies, Outpatient Medication Profile, Adult Admission Risk Screen Last Updated: 14-Sep-2017 14:47 by Florence Berry (SOLE) ESTRADIOL Collected: 08/25/2017 Status: F Source: [place] 9:56 [facility] REPOSITORY TYPE CODE TESTS RESULT OUT OF REFERENCE UNITS RANGE LAB ESTRA(LOIN pg/mL C) ESTRADIOL 14 Result Comment: Patients receiving more than 5 mg/day of biotin may have interference in test results. A sample should be taken no sooner than eight hours after previous dose. Contact [phone] for additional information. REF VALUES FOLLICULAR PHASE 20-144 MID CYCLE 64-357 LUTEAL PHASE 56-214 POSTMENOPAUSE < 32 PREPUBERTY < 20 MALE 10-18Y < 20 ADULT MALE < 40 Performed By: #### ESTRA #### [facility] [address] [place] [address] INHIBIN B Collected: 08/25/2017 Status: F Source: [place] 9:56 [facility] REPOSITORY TYPE CODE TESTS RESULT OUT OF REFERENCE UNITS RANGE LAB INHBB(LOINC pg/mL ) INHIBIN B <10 Result Comment: Sample is moderately lipemic. Lipemia may affect results. INTERPRETIVE INFORMATION: Inhibin B MALE: 0-6 years ................. 40 - 630 pg/mL 7-10 years ................ 35 - 170 pg/mL 11-18 years ............... 50 - 475 pg/mL 19-45 years ............... 40 - 450 pg/mL Greater than or equal to 46 years ........ less than 200 pg/mL FEMALE: 0-6 years ................. less than 73 pg/mL 7-10 years ................ less than 130 pg/mL 11-12 years ............... less than 186 pg/mL 13-18 years ............... less than 360 pg/mL Premenopausal ............. less than 290 pg/mL Follicular phase........... 10 - 290 pg/mL Postmenopausal ............ less than or equal to 16 pg/mL This test is performed using the Kavon Christine Inhibin B TEREZA kit. Values obtained with different methodologies or kits cannot be used interchangeably. Test developed and characteristics determined by [facility]. See Compliance Statement D: [facility]/ Performed by [facility], [address] [place] [id number] [email or web address], Williams Dunaway MD - Lab. Director Performed By: #### INHBB #### [facility] [address] [place] [id number] ANTI MULLERIAN HORMONE Collected: 08/25/2017 Status: F Source: [place] 9:56 [facility] REPOSITORY TYPE CODE TESTS RESULT OUT OF REFERENCE UNITS RANGE LAB AMH(LOINC) ng/mL ANTI MULLERIAN <0.015 HORMONE Result Comment: For assays employing antibodies, the possibility exists for interference by heterophile antibodies in the samples.1 1. Blayne Bolanos Interferences in Immunoassays - still a threat. Clin. Chem. 2000; 46: 6548-5585. Reference Range: Females 47 - 54y: <= 0.82 Median <0.03 AMH concentrations of >= 1.06 ng/mL is correlated with a better response to ovarian stimulation, produced more retrievable oocytes and higher odds of live according to Alejandraer et al. Fertility and Sterility. 2010: 94:3080-9245. The current AMH test method correlates with the study method with a slope of 0.94. Females at risk of ovarian hyperstimulation syndrome or polycystic ovarian syndrome (PCOS) may exhibit elevated serum AMH concentrations. AMH levels from PCOS patients may be 2 to 5 fold higher than age-appropriate reference interval values. Granulosa cell tumors of the ovary may secrete AMH along with other tumor markers. Elevated AMH is not specific for malignancy, and the assay should not be used exclusively to diagnose or exclude an AMH-secreting ovarian tumor. Performed By: #### AMH #### [facility] [address] [place] [id number] HOSP Observed: 05/08/2017 Status: COMPLETED Source: [facility] 12:00 AM CLINIC OTHER CAMPUS REPOSITORY Get Medical Advice (AGCARDWST) AYAH GOODE ([id number]) 1965 F Date Time Provider Department 05/08/17 CALIXTO MORRIS AGCARDWST During your visit today, we recorded the following information about you: Calixto Morris MD 05/11/2017 3:56 PM Signed Please have her try cutting the dose to 6.25 milligrams twice daily and call with vital signs next week. She will need a new prescription. Calixto Morris MD The following approved medication requests have been transmitted electronically. Signed Prescriptions Disp Refills carvedilol (COREG) 6.25 mg tablet 60 tablet 11 Sig: Take 1 tablet by mouth twice daily. MD Kendall Melendrez, RN, RN 05/11/2017 4:54 PM Signed Patient verbalizes understanding. Calixto Morris MD 05/22/2017 9:33 AM Signed Please tell her to cut the dose in half and update us again in a week. MD Molly Melendrez LPN 05/22/2017 4:43 PM Signed Patient notified of results and provider's instructions. Patient verbalizes understanding. Molly Kearns LPN Allergies As of Date: 05/08/2017 Noted Allergy Reaction AMOXACILLIN (AMOXICILLIN) 06/09/2009 2 - Rash 10 - Anaphylaxis Comments: full body rash that lasted for 6 weeks. DOXYCYCLINE HYCLATE 06/09/2009 16 - Unknown ERYTHROMYCIN 06/29/2009 8 - GI Upset SULFA (SULFONAMIDE ANTIBIOTICS) 06/15/2009 2 - Rash TETRACYCLINE 06/09/2009 16 - Unknown Date Reviewed: 04/19/2017 Reviewed by: Rachel Kemp LPN - Fully Assessed Prescriptions as of 05/08/2017 Sig: X CARVEDILOL 6.25 MG TABLET Take 1 tablet by mouth twice * IBUPROFEN 800 MG TABLET Take 1 tablet by mouth every * BENZONATATE 100 MG CAPSULE Take 1 capsule by mouth three* CHOLECALCIFEROL (VITAMIN D3) * Take by mouth. NITROGLYCERIN 0.4 MG SUBLINGU* Dissolve 1 tablet under the t* ATORVASTATIN 20 MG TABLET Take 1 tablet by mouth once d* JUICE PLUS FIBRE ORAL Take 12 tablets by mouth once* V-ULMPYD-S-CYSTEINE MISC 600 mg once daily. METFORMIN ER 500 MG 24 HR TAB* Take 1,000 mg by mouth twice * LETROZOLE 2.5 MG TABLET Take 1 tablet by mouth once d* THIOCTIC ACID 300 MG CAPSULE Take 1 capsule by mouth once * Problem List As Of Date 05/08/2017 Noted Resolved Mitral Valve Prolapse [I34.1] INVALID FOR* More... 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 Medications Discontinued During This Encounter carvedilol (COREG) 25 mg tablet 60 t* 3 05/03/2017 05/11/2017 Class: Med Update Route: ORAL Sig: Take 0.5 tablets by mouth twice daily. Disc: Reason for discontinue is not on file. Encounter Status:Closed by KENDALL ESCOBAR on 05/11/17 12 LEAD ELECTROCARDIOGRAM Observed: 04/26/2017 Status: F Source: [facility] 2:09 PM [facility] REPOSITORY [facility] Cardiovascular Services [address] [place] [address] 12 Lead EKG 04/23/17 1055 MR#: [id number] Acct: [id number] Name: AYAH GOODE Rep #: [id number] : 1965 51 From: Mark Kyle MD Attending Dr: Status: DEP ER Ordering Dr: London Soria MD Date: 04/23/17 Location: ED Sex: F C Admitted: Test Reason : DIZZINESS Blood Pressure : / mmHG Vent. Rate : 071 BPM Atrial Rate : 071 BPM P-R Int : 180 ms QRS Dur : 082 ms QT Int : 360 ms P-R-T Axes : 059 022 026 degrees QTc Int : 391 ms Normal sinus rhythm Low voltage QRS Nonspecific T wave abnormality Abnormal ECG Confirmed by MARK KYLE MD ([id number]), fashion editor HIEU MC ([id number]) on 04/26/2017 2:09:13 PM Referred By: RENATE Confirmed By:MARK KYLE MD 04/26/17 1409 Date Mark Kyle MD CC: Jomar Block Signed EMERGENCY DEPARTMENT Observed: 04/23/2017 Status: F Source: [facility] SUMMARY 5:41 PM [facility] REPOSITORY [facility] Medical Records Department [address] [place] [address] Emergency Department Summary 04/23/17 1043 MR#: [id number] Acct: [id number] Name: AYAH GOODE Rep #: [id number] : 1965 51 From: London Soria MD PCP: Jomar Block Status: DEP ER - ER Visit Summary Date of Service: 04/23/17 Chief Complaint: Chest pain and cough History of Present Illness: The patient is a 51 F presenting for evaluation secondary to chest pain and cough. Patient states that over the course of the last 2-3 weeks she has been dealing with a respiratory illness. Initially this was associated with a minimally productive cough. Patient states that she was coughing severely enough that she caused herself to have left-sided rib pain. Patient states that she has had continuous pain over the left side of her ribs and chest over the course of the last 2 weeks. Patient states that on Monday of this week she sought care at urgent care, had rib x-rays that were found to be negative and a d-dimer that was found to be negative and she was prescribed 800 mg ibuprofens. She was informed however that her for her pain persists she may need a CAT scan. Patient states that she has a continuous sharp pain worse with coughing and deep breathing and palpation over the left side of her chest. Patient states that she also has been dealing with some increased blood pressure recently and her ticket puller has increased her Coreg threefold. She states that that is causing her to have some lightheadedness. Patient denies any hemoptysis. She denies any recent travel surgery mobilization history of DVT or PE. She does have a prior history of ovarian cancer. Review of systems otherwise negative. Physical Examination: Vital signs within normal limits. Patient is somewhat hypertensive at 180/87. Obese female no acute distress. Moist mucous membranes. No JVD. Heart regular rate and rhythm no murmurs normal S1 and S2. Lungs sounds clear to auscultation bilaterally there is left anterior and lateral chest tenderness to palpation over approximately the T8-10 region. Abdomen was soft and nontender. No peripheral edema, peripheral pulses 2+ 4. No vesicular rash noted on chest. Remainder physical otherwise unremarkable. Test Results: Left rib series shows no evidence of pneumothorax, no evidence of rib fracture Emergency Department Course and Treatment: Patient presented for evaluation secondary to left-sided rib pain. This is very clearly reproducible with palpation, and does not seem consistent with the pain from a pulmonary embolism. Patient already had a negative d-dimer, and given the fact that that was negative at that time I do not believe that repeating this test at this time is appropriate as there is a relatively high false positive rate. Patient is not tachycardic, is not hypoxic, I do not believe that further laboratory workup is necessary. Patient was given a dose of Toradol and a lidocaine patch. Repeat evaluation at 1130 showed the pain to be improved from the lidocaine patch. X-rays were found to be negative. Patient's was concerned that she has some hypertension over the course last couple of days, but she was recently changed from atenolol to Coreg, and potentially she is just not having good reaction to Coreg in addition to the fact that her blood pressure is elevated secondary to pain. I did obtain an EKG on this patient which showed no evidence of ischemic changes. This time the patient has clearly reproducible chest wall pain, had a negative d-dimer, has had negative x-rays, I do not believe that this is a presentation of a PE or cardiac event. This likely is musculoskeletal. Patient was recommended to continue following with her ticket puller for her blood pressure, and to use lidocaine patches for treatment of the chest wall pain. Disposition: Discharge Impression: 1. Chest wall pain This note was generated with Crushpath[employer] software. It may contain incorrect words, spelling, and punctuation that were not noted in review of the chart prior to signing ED Disposition - Plan for ED Patient: Disposition: Home or Assisted Living Chief Complaint: Chest Other Diagnosis: Chest wall pain Instructions: ED Chest Pain Costochondritis Prescriptions: Lidocaine [Lidoderm] 1 ea TP DAILY PRN #10 adh..patch PRN Reason: Pain Referrals: Jomar Block MD [Primary Care Provider] - 3-5 Days if not improving What to do if you have Problems For any increased pain, shortness of breath, bleeding, nausea or vomiting, chest pain, or any unexpected problems, contact your Primary Care Provider. Call [facility] ([phone]) or report to the closest Emergency Room. Call 911 if necessary. 04/23/17 1741 <Electronically signed by London Soria MD> Date London Soria MD Cosigner Signature (If Indicated): Date CC: Jomar Block RIBS UNI MIN 3V Observed: 04/23/2017 Status: F Source: [place] W/PA CHEST 9:59 AM [facility] REPOSITORY [facility] Imaging Services [address] [place] [id number] Ribs Uni Min 3V w/PA Chest MR#: [id number] Acct: [id number] Name: AYAH GOODE Rep #: [id number] : 1965 F 51 From: Nelia James PCP: Jomar Block Status: REG ER Study: Ribs Uni Min 3V w/PA Chest Date of Exam: 04/23/17 Exam# [id number] Ordering Dr: London Soria MD STUDY: X-RAY - UNILATERAL RIBS ( LEFT ) WITH CHEST REASON FOR EXAM: Female, 51 years old. MID LEVEL LEFT SIDED RIB PAIN AFTER EXCESSIVE COUGHING TECHNIQUE - RIBS: 2 view(s) of the ribs. TECHNIQUE - CHEST: Single view COMPARISON: None. FINDINGS - RIBS: Normal visualized ribs without a demonstrated fracture. FINDINGS - CHEST: The lungs are clear and expanded. There is no demonstrated pleural abnormality. Normal size heart. Normal mediastinum and bobby. Normal visualized pulmonary arteries. Normal visualized aortic arch and descending thoracic aorta. Normal visualized thoracic spine. Normal visualized ribs, clavicles, and shoulders. There is no demonstrated abnormality of the visualized soft tissue structures of the upper abdomen. RAD/Ribs Uni Min 3V w/PA Chest IMPRESSION: RIBS: Normal x-ray examination of the ribs. CHEST: Normal x-ray examination of the chest. Electronically Signed: Nelia James MD at 11:10 EST Tel , Service support , CC: London Soria; Jomar Block Media Account Executive: Signed OBSOLETE Observed: 04/21/2017 Status: COMPLETED Source: [place] 12:00 AM [facility] REPOSITORY Refill (AGCARDWST) AYAH GOODE ([id number]) 1965 F Date Time Provider Department 04/21/17 CALIXTO MORRIS AGCFRANKLYN During your visit today, we recorded the following information about you: Leatha Garcias MA 04/21/2017 9:36 AM Signed Patient phones requesting refills as follows: Patient would like a 90 day supply. Pending Prescriptions Disp Refills CARVEDILOL 3.125 MG TABLET 180 tablet 3 Sig: Take 1 tablet by mouth twice daily. VANESSA: No Please review and advise. SOLE Coburn MD 04/21/2017 2:54 PM Signed The following approved medication requests have been transmitted electronically. Signed Prescriptions Disp Refills carvedilol (COREG) 3.125 mg tablet 180 tablet 3 Sig: Take 1 tablet by mouth twice daily. VANESSA: No Authorizing Provider: CALIXTO MORRIS MD Adam Gilmor, RN, RN 04/21/2017 3:03 PM Signed escript confirmed Allergies As of Date: 04/21/2017 Noted Allergy Reaction AMOXACILLIN (AMOXICILLIN) 06/09/2009 2 - Rash 10 - Anaphylaxis Comments: full body rash that lasted for 6 weeks. DOXYCYCLINE HYCLATE 06/09/2009 16 - Unknown ERYTHROMYCIN 06/29/2009 8 - GI Upset SULFA (SULFONAMIDE ANTIBIOTICS) 06/15/2009 2 - Rash TETRACYCLINE 06/09/2009 16 - Unknown Date Reviewed: 04/19/2017 Reviewed by: Rachel Kemp LPN - Fully Assessed Reason for Visit: Refill Request [94] Order(s):carvedilol (COREG) 3.125 mg tabletTake 1 tablet by mouth twice daily.Disp: 180 tabletRfl: 3 Prescriptions as of 04/21/2017 Sig: CARVEDILOL 3.125 MG TABLET Take 1 tablet by mouth twice * IBUPROFEN 800 MG TABLET Take 1 tablet by mouth every * BENZONATATE 100 MG CAPSULE Take 1 capsule by mouth three* CHOLECALCIFEROL (VITAMIN D3) * Take by mouth. NITROGLYCERIN 0.4 MG SUBLINGU* Dissolve 1 tablet under the t* ATORVASTATIN 20 MG TABLET Take 1 tablet by mouth once d* JUICE PLUS FIBRE ORAL Take 12 tablets by mouth once* P-HKIPEH-G-CYSTEINE MISC 600 mg once daily. METFORMIN ER 500 MG 24 HR TAB* Take 1,000 mg by mouth twice * LETROZOLE 2.5 MG TABLET Take 1 tablet by mouth once d* THIOCTIC ACID 300 MG CAPSULE Take 1 capsule by mouth once * Problem List As Of Date 04/21/2017 Noted Resolved Mitral Valve Prolapse [I34.1] INVALID FOR* More... 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 Medications Discontinued During This Encounter carvedilol (COREG) 3.125 mg tablet 60 t* 11 04/03/2017 04/21/2017 Route: ORAL Sig: Take 1 tablet by mouth twice daily. Disc: Reason for discontinue is not on file. Encounter Status:Closed by KENDALL ESCOBAR on 04/21/17 D DIMER Collected: 04/19/2017 Status: F Source: MEDWAY 12:05 PM [facility] REPOSITORY TYPE CODE TESTS RESULT OUT OF REFERENCE UNITS RANGE LAB DDMER <500 ng/mL FEU Test D sent to [facility]. Result Comment: Account Credited D-DIMER QUANTITATIVE Collected: 04/19/2017 Status: F Source: VIDA (DVT/PE) 11:49 AM [facility] REPOSITORY TYPE CODE TESTS RESULT OUT OF RANGE REFERENCE UNITS LAB L300.8000 0.27-0.49 FEU/ug/m Low D-DIMER < 0.27 QUANT Result Comment: NORMAL D-Dimer level (<0.50) indicates no DVT or PE. Performed By: #### L300.8000 #### [facility] [address] [place], [place] [address]all [facility] [place], [address] XR RIB/CHST 3V AP Observed: 04/19/2017 Status: F Source: MEDWAY RIB/OBL/CHST L 11:14 AM [facility] REPOSITORY * * *Final Report* * * DATE OF EXAM: Apr 19 2017 11:14AM WOX [id number] - XR RIB/CHST 3V AP RIB/OBL/CHST L / PROCEDURE REASON: Pleurodynia * * * * Physician Interpretation * * * * LEFT RIBS History: Pleurodynia Findings: No evidence of acute fracture. No evidence of pneumothorax or effusion. IMPRESSION: No acute finding Media Account Executive: YANIV Transcribe Date/Time: Apr 19 2017 11:28A Dictated by : SAHARA BRAVO MD This examination was interpreted and the report reviewed and electronically signed by: SAHARA BRAVO MD on Apr 19 2017 11:28AM EST [id number] PROGRESS Observed: 04/19/2017 Status: COMPLETED Source: MEDWAY 11:07 AM [facility] REPOSITORY HNO ID: [id number] Author: Luisana Pat (Tech) Service: (none) Author Type: Software Sales Type: Progress Notes Filed: 04/19/2017 11:15 AM Note Text: Radiology Service Progress Note PATIENT NAME: Ayah Goode DATE OF SERVICE: April 19, 2017 TIME: 11:07 AM PATIENT IDENTITY VERIFICATION COMPLETED USING TWO (2) METHODS: Patient confirmed name verbally and Date of . PATIENT GENDER DATA: Female. status: : No status: NO. PATIENT RELEVANT IMPLANT DATA REVIEWED: Not Applicable RADIOLOGY DEPARTMENT: General X-ray: Exam(s) Completed: Chest X-Ray Rib X-Ray: Left PERIPHERAL IV DATA: Not applicable SIGNED BY: Luisana Granger April 19, 2017 11:07 AM PROGRESS Observed: 04/19/2017 Status: COMPLETED Source: MEDWAY 10:54 AM [facility] REPOSITORY HNO ID: [id number] Author: Nichole Cyr Service: (none) Author Type: Physician Security Test Engineer Type: Progress Notes Filed: 04/19/2017 2:13 PM Note Text: 04/19/2017 Patient presents with: left rib pain and cough: has had URI x 10 days and left ribs started hurting 2-3 days ago from coughing SUBJECTIVE: This is a 51 year old that is here today for Complaint(s) of left rib pain x 2-3 days. Pain with coughing or inspiration or movement. She has had a cough x 10-14 days, cough overall improving the last couple days, but notes rib pain is worsening. Located over the left anterior lateral lower ribs. She is on Femara. Denies fever/chills, SOB, wheezing, injury/trauma, calf pain, leg pain or swelling. Non-smoker. No hx of DVT/PE. PMH DM, uncontrolled recently with BG in the 200's per patient. PAST MEDICAL HISTORY Diagnosis Date - Hyperlipidemia - Malignant neoplasm of ovary (HCC) Ovarian cancer - MVP (mitral valve prolapse) - Sleep apnea - SVT (supraventricular tachycardia) (HCC) 12/2011 ALLERGIES Amoxacillin [Amoxicillin]; Doxycycline Hyclate; Erythromycin; Sulfa (Sulfonamide Antibiotics); Tetracycline MEDICATIONS Current Outpatient Prescriptions: nitroglycerin sublingual (NITROSTAT) 0.4 mg SL tablet Dissolve 1 tablet under the tongue as needed for Chest Pain. If no pain relief call 911. letrozole (FEMARA) 2.5 mg tablet Take 1 tablet by mouth once daily. carvedilol (COREG) 3.125 mg tablet Take 1 tablet by mouth twice daily. Cholecalciferol, Vitamin D3, 10,000 unit cap Take by mouth. atorvastatin (LIPITOR) 20 mg tablet Take 1 tablet by mouth once daily. NUTRITIONAL SUPPLEMENT/FIBER (JUICE PLUS FIBRE ORAL) Take 12 tablets by mouth once daily. ACETYLCYSTEINE (G-PJLAQW-H-CYSTEINE MISC) 600 mg once daily. metFORMIN ER (GLUMETZA) 500 mg 24 hr tablet Take 1,000 mg by mouth twice daily with meals. THIOCTIC ACID (ALPHA LIPOIC ACID) 300 mg cap Take 1 capsule by mouth once daily. No current facility-administered medications for this visit. 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 Left handed. REVIEW OF SYSTEMS All other reviewed and negative other than HPI. OBJECTIVE: BP 138/80 Pulse 80 Temp 36.8 ?C (98.2 ?F) (Tympanic) Resp 18 Wt 97.3 kg (214 lb 6.4 oz) LMP 02/23/2009 SpO2 99% BMI 36.8 kg/m2 APPEARANCE Well appearing, alert, in no acute distress, well-hydrated, well nourished. EYES PERRLA, conjunctiva and sclera normal. EARS External ears normal, canals clear NOSE/SINUS Nares normal. Septum midline. Mucosa normal. No drainage or sinus tenderness. THROAT normal, no erythema NECK Supple, no adenopathy; HEART RRR with normal S1 and S2 LUNG clear to auscultation, No wheezing, rhonchi, rales. No flail chest. + TTP over anterior/lateral 6th, 7th, and 8th ribs. ABDOMEN soft, no organomegaly, no TTP. No rebound, rigidity, guarding. ASSESSMENT/PLAN: 1. Rib pain on left side - ICD9: 786.50, ICD10: R07.81 (primary diagnosis) No obvious fracutre Check d-dimer with being on femara, however, sx of chest wall pain are reproducible, and more consistent with costochondritis. Motrin, rest, incentive spirometry reviewed Reviewed red flags and when to seek care sooner. - XR RIBS/CHEST 3V AP RIB/OBLS/CXR LT - IBUPROFEN 800 MG TABLET - D-PFMFN-qtou, <0.27 at [facility] lab. Negative. 2. Costochondritis - ICD9: 733.6, ICD10: M94.0 As above - BENZONATATE 100 MG CAPSULE 3. Use of letrozole (Femara) - ICD9: V07.52, ICD10: Z79.811 As above - D-DIMER The patient indicates understanding of these issues and agrees with the plan. Reviewed red flags and when to seek care sooner in ER Nichole Cyr PA-C CNOV Observed: 04/19/2017 Status: COMPLETED Source: MEDWAY 10:45 AM [facility] REPOSITORY Office Visit (WSTR) AYAH GOODE ([id number]) 1965 F Date Time Provider Department 04/19/17 10:45 AM NICHOLE CYR) [facility] During your visit today, we recorded the following information about you: Temperature Pulse Respiration Blood pressure 98.2 degrees 80/minute 18/minute 138/80 Weight 97.3 kg Nichole Cyr PA-C 04/19/2017 2:13 PM Addendum 04/19/2017 Patient presents with: left rib pain and cough: has had URI x 10 days and left ribs started hurting 2-3 days ago from coughing SUBJECTIVE: This is a 51 year old that is here today for Complaint(s) of left rib pain x 2-3 days. Pain with coughing or inspiration or movement. She has had a cough x 10-14 days, cough overall improving the last couple days, but notes rib pain is worsening. Located over the left anterior lateral lower ribs. She is on Femara. Denies fever/chills, SOB, wheezing, injury/trauma, calf pain, leg pain or swelling. Non-smoker. No hx of DVT/PE. PMH DM, uncontrolled recently with BG in the 200's per patient. PAST MEDICAL HISTORY Diagnosis Date - Hyperlipidemia - Malignant neoplasm of ovary (HCC) Ovarian cancer - MVP (mitral valve prolapse) - Sleep apnea - SVT (supraventricular tachycardia) (HCC) 12/2011 ALLERGIES Amoxacillin [Amoxicillin]; Doxycycline Hyclate; Erythromycin; Sulfa (Sulfonamide Antibiotics); Tetracycline MEDICATIONS Current Outpatient Prescriptions: nitroglycerin sublingual (NITROSTAT) 0.4 mg SL tablet Dissolve 1 tablet under the tongue as needed for Chest Pain. If no pain relief call 911. letrozole (FEMARA) 2.5 mg tablet Take 1 tablet by mouth once daily. carvedilol (COREG) 3.125 mg tablet Take 1 tablet by mouth twice daily. Cholecalciferol, Vitamin D3, 10,000 unit cap Take by mouth. atorvastatin (LIPITOR) 20 mg tablet Take 1 tablet by mouth once daily. NUTRITIONAL SUPPLEMENT/FIBER (JUICE PLUS FIBRE ORAL) Take 12 tablets by mouth once daily. ACETYLCYSTEINE (C-VHXPHL-C-CYSTEINE MISC) 600 mg once daily. metFORMIN ER (GLUMETZA) 500 mg 24 hr tablet Take 1,000 mg by mouth twice daily with meals. THIOCTIC ACID (ALPHA LIPOIC ACID) 300 mg cap Take 1 capsule by mouth once daily. No current facility-administered medications for this visit. 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 Left handed. REVIEW OF SYSTEMS All other reviewed and negative other than HPI. OBJECTIVE: BP 138/80 Pulse 80 Temp 36.8 ?C (98.2 ?F) (Tympanic) Resp 18 Wt 97.3 kg (214 lb 6.4 oz) LMP 02/23/2009 SpO2 99% BMI 36.8 kg/m2 APPEARANCE Well appearing, alert, in no acute distress, well- hydrated, well nourished. EYES PERRLA, conjunctiva and sclera normal. EARS External ears normal, canals clear NOSE/SINUS Nares normal. Septum midline. Mucosa normal. No drainage or sinus tenderness. THROAT normal, no erythema NECK Supple, no adenopathy; HEART RRR with normal S1 and S2 LUNG clear to auscultation, No wheezing, rhonchi, rales. No flail chest. + TTP over anterior/lateral 6th, 7th, and 8th ribs. ABDOMEN soft, no organomegaly, no TTP. No rebound, rigidity, guarding. ASSESSMENT/PLAN: 1. Rib pain on left side - ICD9: 786.50, ICD10: R07.81 (primary diagnosis) No obvious fracutre Check d-dimer with being on femara, however, sx of chest wall pain are reproducible, and more consistent with costochondritis. Motrin, rest, incentive spirometry reviewed Reviewed red flags and when to seek care sooner. - XR RIBS/CHEST 3V AP RIB/OBLS/CXR LT - IBUPROFEN 800 MG TABLET - W-MKROM-jfxs, ANDlt;0.27 at [facility] lab. Negative. 2. Costochondritis - ICD9: 733.6, ICD10: M94.0 As above - BENZONATATE 100 MG CAPSULE 3. Use of letrozole (Femara) - ICD9: V07.52, ICD10: Z79.811 As above - D-DIMER The patient indicates understanding of these issues and agrees with the plan. Reviewed red flags and when to seek care sooner in ER Nichole Cyr PA-C Referring Provider: SELF [200] Allergies As of Date: 04/19/2017 Noted Allergy Reaction AMOXACILLIN (AMOXICILLIN) 06/09/2009 2 - Rash 10 - Anaphylaxis Comments: full body rash that lasted for 6 weeks. DOXYCYCLINE HYCLATE 06/09/2009 16 - Unknown ERYTHROMYCIN 06/29/2009 8 - GI Upset SULFA (SULFONAMIDE ANTIBIOTICS) 06/15/2009 2 - Rash TETRACYCLINE 06/09/2009 16 - Unknown Date Reviewed: 04/19/2017 Reviewed by: Rachel Kemp LPN - Fully Assessed Reason for Visit: left rib pain and cough [Other] Cmt: has had URI x 10 days and left ribs started hurting 2- 3 days ago from coughing Primary Visit Diagnosis:Rib pain on left side [R07.81] Other Visit Diagnoses:Costochondritis [M94.0] Use of letrozole (Femara) [Z79.811] Order(s):XR RIBS/CHEST 3V AP RIB/OBLS/CXR LT [1051135] Order #: [id number] FUTURE ibuprofen (MOTRIN) 800 mg tabletTake 1 tablet by mouth every 8 hours as needed for Pain (with food.).Disp: 30 tabletRfl: 0 benzonatate (TESSALON PERLE) 100 mg capsuleTake 1 capsule by mouth three times daily as needed.Disp: 30 capsuleRfl: 0 D-DIMER [SQDDMER] Order #: [id number] FUTURE Prescriptions as of 04/19/2017 Sig: NITROGLYCERIN 0.4 MG SUBLINGU* Dissolve 1 tablet under the t* LETROZOLE 2.5 MG TABLET Take 1 tablet by mouth once d* IBUPROFEN 800 MG TABLET Take 1 tablet by mouth every * BENZONATATE 100 MG CAPSULE Take 1 capsule by mouth three* CARVEDILOL 3.125 MG TABLET Take 1 tablet by mouth twice * CHOLECALCIFEROL (VITAMIN D3) * Take by mouth. ATORVASTATIN 20 MG TABLET Take 1 tablet by mouth once d* JUICE PLUS FIBRE ORAL Take 12 tablets by mouth once* U-WQGTHV-E-CYSTEINE MISC 600 mg once daily. METFORMIN ER 500 MG 24 HR TAB* Take 1,000 mg by mouth twice * THIOCTIC ACID 300 MG CAPSULE Take 1 capsule by mouth once * Medication notes this encounter METFORMIN ER 500 MG 24 HR TABLET,EXTENDED RELEASE >> Rachel Kemp LPN 04/19/2017 10:48 AM >> RACHEL KEMP LPN MonApr 19, 2017 10:48 AM Taking Problem List As Of Date 04/19/2017 Noted Resolved Mitral Valve Prolapse [I34.1] INVALID FOR* More... 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 BENZONATATE 100 MG CAPSULE 30 c* 0 04/19/2017 Route: ORAL Sig: Take 1 capsule by mouth three times daily as needed. Encounter Status:Closed by NICHOLE CYR PA-C on 04/19/17 ALLERGIES ALLERGIES DATE TYPE / CODE NAME / CODE REACTION SEVERITY SOURCE 04/23/2017 Drug Sulfa (Sulfonamide Unknown Unknown [place] Allergy/416 Antibiotics)/R11139 Community 434080([facility] 0491([facility] ED CT) Repository 04/23/2017 Drug ampicillin/[id number] Rash Unknown [place] Allergy/416 92(RXNORM) Community 241584([facility] ED CT) Repository 04/23/2017 Drug tetracycline/J21516 Unknown Unknown [place] Allergy/416 2738(RXNORM) Community 451424([facility] ED CT) Repository 04/23/2017 Drug doxycycline/[id number] Unknown Unknown [place] Allergy/416 748(RXNORM) Community 465188([facility] ED CT) Repository 04/23/2017 Drug erythromycin Other Unknown [place] Allergy/416 base/Y230526393(RXN Community 661153([facility] ED CT) Repository 06/29/2009 DRUG/514720 ERYTHROMYCIN GI UPSET [facility] 003(SNOMED [facility] [place] [facility]) Repository 06/15/2009 Drug SULFA (SULFONAMIDE RASH [facility] Class/23410 ANTIBIOTICS) [place] 1003(SNOMED Repository CT) 06/09/2009 DRUG AMOXICILLIN RASH High [facility] INGREDI/419 [place] 995890(SNOM Repository ED CT) 06/09/2009 DRUG DOXYCYCLINE HYCLATE UNKNOWN [facility] INGREDI/419 [place] 711964(SNOM Repository ED CT) 06/09/2009 DRUG TETRACYCLINE UNKNOWN [facility] INGREDI/419 [place] 209753(SNOM Repository ED CT) NG/[id number] AMOXICILLIN [facility] 6(SNOMED [facility]) Repository NG/77656872 DOXYCYCLINE HYCLATE [facility] 6(SNOMED [facility]) Repository NG/50844460 ERYTHROMYCIN [facility] 6(SNOMED [facility]) Repository NG/39540354 SULFA (SULFONAMIDE [facility] 6(SNOMED ANTIBIOTICS) Health System CT) Repository NG/75254319 TETRACYCLINE [facility] 6(SNOMED [facility] CT) Repository ENCOUNTERS ENCOUNTERS ADMIT/DISCHARGE ACCOUNT NUMBER ADMITTING ENCOUNTER LOCATION SOURCE CLASS 03/24/2018 [id number] Ambulatory [facility] ding:LAB Repository 03/22/[id number] Lorenzo Ambulatory [facility] Repository 01/26/2018/01/27/20 [id number] Ambulatory [address] Repository 01/26/2018/01/30/20 [id number] Ambulatory [address] Repository 01/23/2018/01/24/20 [id number] Ambulatory [address] Repository 01/08/2018 [id number] Ambulatory [facility] Repository 11/27/2017 [id number] Ambulatory [facility] MEDICAL Repository CENTERBuildi ng:CAGWS 10/23/2017 [id number] Ambulatory [facility] MEDICAL Repository CENTERBuildi ng:CAGWS 10/10/2017/10/11/19 [id number] Ambulatory [address] Repository 09/14/[id number] Lorenzo Ambulatory [facility] Repository 04/23/2017/04/23/20 [id number] Emergency [address] ding:ED Repository 04/19/2017 [id number] Ambulatory [facility] ding:LABSPEC Repository 04/19/2017 [id number] Ambulatory [facility] Repository 04/19/2017/04/19/20 [id number] Ambulatory [address] Repository 04/19/2017/04/19/20 [id number] Ambulatory [address] Repository PAYERS PAYERS ENCOUNTER GUARANTOR PAYER SUBSCRIBER SOURCE 03/24/2018 LESVIA GOODE Primary LESVIA Figueroa [id number] E Insurance:ANTHEMPolicy JACQUELINEB: [facility] Number: [id number] Repository [address]Lpg: 330 Date:[phone] () [address]D[place]XSF[place], [place] [address]GM: 03/24/2018 Secondary NOT GIVENUNK [place] Insurance:SELF PAY Community INSURANCEPolicy Number: Hospital Effective Repository Date:2018-03-24 03/22/2018 AYAH Primary LESVIA BYERS: [facility]: Insurance:AnthemPolicy [id number] Hospitals Number: [address] Repository [place] [id number] [place] [facility] [place] Date:Plan Name:Health [address] [place], [place] [id number]: () 11/27/2017 AYAH J Primary Insurance:JIA ROSE[facility] TRADITIONALPolic [id number] [facility] Number: Repository E [place]OG[place] [id number] [facility], [place] Date: [address]Wbr: () 10/23/2017 AYAH Bravo Primary Insurance:JIA ROSE: [facility]: [facility] TRADITIONALPolic [id number] [facility] Hospital Number: Repository E [place] [id number] [facility], [place] Date: [address]Qvt: () 09/14/2017 AYAH Primary LESVIA GOODE: [facility]: Insurance:AnthemPolicy [id number] Hospitals Number: 8 [address] Repository [place] [id number] [facility], [place] Date:Plan Name:[place] [id number]: () 04/23/2017 Lesvia Goode [facility] Lesvia Goode [id number] E Insurance:ANTHEMPolicy JACQUELINEB: [facility] Number: [id number] [place] [id number] Repository [address]Poc: (153) Date:4490-01-50PS [phone] () [address]167[address], [place] [address]KH: 04/23/2017 Secondary NOT GIVENUNK [place] Insurance:SELF PAY Community INSURANCEPolicy Number: Hospital Effective Repository Date:2017-04-23 04/19/2017 Lesvia Goode Primary Lesvia Figueroa [id number] E Insurance:ANTHEMPolicy JRDOB: [place] Number: [id number] [id number] Repository [address]Oow: 330) Date:[id number] [phone] () [address]336[address], [place] [address]FK: 04/19/2017 Secondary NOT GIVENUNK [place] Insurance:SELF PAY Community INSURANCEPolicy Number: Hospital Effective Repository Date:2017-04-19
== END ==
PROVIDERS: Family Provider Family Medicine; PCP Family Medicine; Referring Provider Family Medicine; Visit Provider Family Medicine
DX: Z00.00 Encounter for general adult medical examination without abnormal findings (principal)
CPT/HCPCS: 36415; 80048; 80061; 82306; 84443

== ENCOUNTER → 2018-04-19 06:38 | Outpatient (CLI) | payer BC, SELFPAY ==
[2017-04-23 09:44] VITALS: BMI 36.5
[2018-04-19 09:08] LABS: Thyroid Stim Hormone (TSH) 6.07 uIU/mL (0.358-3.74)
== END ==
PROVIDERS: Family Provider Family Medicine; PCP Family Medicine; Referring Provider Family Medicine; Visit Provider Family Medicine
DX: R79.89 Other specified abnormal findings of blood chemistry (principal)
CPT/HCPCS: 36415; 84443

== ENCOUNTER → 2018-04-20 06:15 | Outpatient (CLI) | payer BC, SELFPAY ==
--- NOTE | 2018-04-20 06:35 | MRI_ITS ---
STUDY: MRI LEFT MIDFOOT REASON FOR EXAM: Female, 52 years old. Pain across mid foot after brisk walking. Evaluate for stress injury. TECHNIQUE: Standardized fat and water weighted pulse sequences were obtained in all 3 orthogonal planes. COMPARISON: None. FINDINGS: Normal talonavicular articulation. 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 No bone marrow edema is identified at the site. Normal navicular-cuneiform articulations. Normal intercuneiform articulations. Normal first tarsometatarsal articulation. Normal Lisfranc ligament. Normal second and third tarsometatarsal articulations. Normal cuboid fourth and cuboid fifth tarsometatarsal articulation. Normal first through fifth metatarsi. Normal tibialis anterior tendon. Normal extensor hallucis longus tendon. Normal extensor digitorum longus tendons. Normal peroneus longus tendon and distal insertion. Normal peroneus brevis tendon and distal insertion. Normal intrinsic muscles of the mid and forefoot region. Normal extensor digitorum brevis muscle. Normal subcutis adipose space. 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 Electronically Signed: Nico Vuong MD at 12:09 EST , Service support ,
== END ==
PROVIDERS: Family Provider Family Medicine; PCP Family Medicine; Referring Provider Podiatrist; Visit Provider Podiatrist
DX: M84.375A Stress fracture, left foot, initial encounter for fracture (principal)
CPT/HCPCS: 73718

== ENCOUNTER → 2018-06-18 08:04 | Outpatient (CLI) | payer BC, SELFPAY ==
[2017-04-23 09:44] VITALS: BMI 36.5
[2018-06-18 10:29] LABS: Free T3 2.6 pg/mL (2.18-3.98); T4 Total, Thyroxin 9.3 ug/dL (4.8-13.9); Thyroid Stim Hormone (TSH) 3.68 uIU/mL (0.358-3.74)
== END ==
PROVIDERS: Family Provider Family Medicine; PCP Family Medicine; Referring Provider Family Medicine; Visit Provider Family Medicine
DX: E03.9 Hypothyroidism, unspecified (principal)
CPT/HCPCS: 36415; 84436; 84443; 84481

== ENCOUNTER → 2018-09-18 | Outpatient (CLI) | payer BC, SELFPAY ==
[2017-04-23 09:44] VITALS: BMI 36.5
[2018-09-18 09:01] LABS: Vitamin B12 1071 pg/mL (211-911); Vitamin D,25 Hydroxy 36.9 ng/mL (29.95-100.01)
[2018-09-18 09:05] LABS: Anion Gap 5 (5-15); BUN 8 mg/dL (7-18); BUN/Creat Ratio 13.7 RATIO (10-20); Calcium,Total 8.9 mg/dL (8.5-10.1); Chloride 104 mmol/L (98-107); Cholesterol 197 mg/dL (200); Creatinine, Serum 0.59 mg/dL (0.55-1.02); EST Glomerular Filtration Rate 114 mL/min (>60); Est Glom Filt Rate - Afr Amer 138 mL/min (>60); Free T3 2.6 pg/mL (2.18-3.98); Glucose 108 mg/dL (74-106); High Density Lipoprotein 28 mg/dL; Potassium 3.9 mmol/L (3.5-5.1); Sodium Level 139 mmol/L (136-145); Thyroid Stim Hormone (TSH) 3.74 uIU/mL (0.358-3.74); Triglycerides 335 mg/dL; Very Low Density Lipoprotein 67 mg/dL (5-40)
== END | disposition home or self-care (01) ==
LOC: LAB 07:01
PROVIDERS: Family Provider Family Medicine; PCP Family Medicine; Referring Provider Family Medicine; Visit Provider Family Medicine
DX: I10 Essential (primary) hypertension (principal); E03.9 Hypothyroidism, unspecified; K76.0 Fatty (change of) liver, not elsewhere classified; E55.9 Vitamin D deficiency, unspecified; R53.83 Other fatigue
CPT/HCPCS: 36415; 80048; 80061; 82306; 82607; 84443; 84481

== ENCOUNTER → 2018-09-27 | Outpatient (CLI) | payer BC, SELFPAY ==
--- NOTE | 2018-09-27 08:40 | US_ITS ---
STUDY: THYROID ULTRASOUND REASON FOR EXAM: Female, 53 years old. Hypothyroidism TECHNIQUE: Ultrasound evaluation of the thyroid was performed with real-time and static hardy-scale imaging. COMPARISON: None. FINDINGS: RIGHT LOBE: The right lobe of the thyroid gland measures 4.5 x 1.1 x 0.9 cm. There is a heterogeneous echotexture. There are no demonstrated solid, cystic or complex lesions. LEFT LOBE: The left lobe of the thyroid gland measures 4.2 x 1.0 x 1.2 cm. There is a heterogeneous echotexture. There are no demonstrated solid, cystic or complex lesions. ISTHMUS: The isthmus measures 3 mm . The regional lymph nodes are normal. US/Thyroid IMPRESSION: Normal ultrasound examination of the thyroid. Electronically Signed: Zackery Irby MD at 21:52 EDT , Service support ,
== END | disposition home or self-care (01) ==
PROVIDERS: Family Provider Family Medicine; PCP Family Medicine; Referring Provider Family Medicine; Visit Provider Family Medicine
DX: E03.9 Hypothyroidism, unspecified (principal)
CPT/HCPCS: 76536

== ENCOUNTER → 2018-10-15 | Outpatient (CLI) | payer BC, SELFPAY ==
--- NOTE | 2018-10-15 10:50 | US_ITS ---
STUDY: RENAL ULTRASOUND - COMPLETE REASON FOR EXAM: Female, 53 years old. TECHNIQUE: Ultrasound evaluation of the kidneys was performed with real-time and static pacheco-scale imaging. COMPARISON: None. FINDINGS: The right kidney is normal in size, shape and position and measures 9.5 x 6 x 4.5 cm the renal cortex measures 1.4 cm there is a 0.6 x 0.8 cm bright echo in the midportion of the right kidney that casts posterior shadowing represent tiny calculus. The left kidney is normal in size, shape and position and measures 9 .5 x 4.5 x 4.7 cm with anterior cortex 1.2 cm. No hydronephrosis on either side and no evidence of hydroureter. The urinary bladder is mildly distended with about 372 ml of urine no significant residual after voiding. Both ureteral jets noted during the study. No evidence of thickening of the wall or debris noted. No filling defect or stone within the urinary bladder US/Kidney and Bladder IMPRESSION: Negative ultrasound of the abdomen except for tiny bright echo midportion of the right kidney that S acoustic shadowing represent tiny calculus. Electronically Signed: Fanta Barahona, at 12:46 EDT Tel , Service support ,
== END | disposition home or self-care (01) ==
PROVIDERS: Family Provider Family Medicine; PCP Family Medicine; Referring Provider Family Medicine; Visit Provider Family Medicine
DX: R30.1 Vesical tenesmus (principal)
CPT/HCPCS: 76770

== ENCOUNTER → 2018-11-03 | Outpatient (CLI) | payer BC, SELFPAY ==
[2017-04-23 09:44] VITALS: BMI 36.5
[2018-11-03 08:21] LABS: Free T3 2.4 pg/mL (2.18-3.98); T4 Total, Thyroxin 12.4 ug/dL (4.8-13.9); Thyroid Stim Hormone (TSH) 2.24 uIU/mL (0.358-3.74)
== END | disposition home or self-care (01) ==
LOC: LAB.FUTURE 07:09
PROVIDERS: Family Provider Family Medicine; PCP Family Medicine; Referring Provider Family Medicine; Visit Provider Family Medicine
DX: I10 Essential (primary) hypertension (principal); E03.9 Hypothyroidism, unspecified
CPT/HCPCS: 36415; 84436; 84443; 84481

== ENCOUNTER → 2018-12-25 | Outpatient (CLI) | payer BC, SELFPAY ==
[2017-04-23 09:44] VITALS: BMI 36.5
[2018-12-25 08:13] LABS: Cholesterol 169 mg/dL (200); High Density Lipoprotein 32 mg/dL; Thyroid Stim Hormone (TSH) 0.95 uIU/mL (0.358-3.74); Triglycerides 235 mg/dL; Very Low Density Lipoprotein 47 mg/dL (5-40)
== END | disposition home or self-care (01) ==
PROVIDERS: Family Provider Family Medicine; PCP Family Medicine; Referring Provider Family Medicine; Visit Provider Family Medicine
DX: E03.9 Hypothyroidism, unspecified (principal); I10 Essential (primary) hypertension
CPT/HCPCS: 36415; 80061; 84443

== ENCOUNTER → 2019-01-23 | Outpatient (CLI) | payer BC, SELFPAY ==
--- NOTE | 2019-01-23 12:50 | BI_ITS ---
MAMMOGRAPHY - BILATERAL SCREENING REASON FOR EXAM: Female, 53 years old. Routine annual screening examination. PERTINENT HISTORY: Non-contributory. TECHNIQUE: Digital bilateral breast kimberly (3D mammographic acquisition) in the CC and MLO projections. 2-D mediolateral oblique (MLO) and craniocaudad (CC) views of both breasts were obtained. CAD: Full Field Digital Mammography with Computer Added Detection was performed. COMPARISON: None. Baseline examination. FINDINGS: Breast Composition: There are scattered areas of fibroglandular density. There are no dominant masses or suspicious calcifications. Benign-appearing bilateral axillary lymph nodes. No other significant abnormalities are identified. BI/SCREEN MAMM (CAD) W/KIMBERLY BILAT IMPRESSION: Negative screening mammogram. Yearly followup mammogram recommended. (A) ASSESSMENT CATEGORY: BIRADS Category 2: Benign. A letter regarding these results will be sent to the patient by the facility within 30 days. Approximately 10% of breast cancers are not detected by mammography. A normal mammogram should not delay biopsy of a clinically suspicious abnormality. [id number] Electronically Signed: Jack Pierre, at 14:32 EDT , Service support ,
== END | disposition home or self-care (01) ==
LOC: OPBI 12:48
PROVIDERS: Family Provider Family Medicine; PCP Family Medicine; Referring Provider Family Medicine; Visit Provider Family Medicine
DX: Z12.31 Encounter for screening mammogram for malignant neoplasm of breast (principal)
CPT/HCPCS: 77063; 77067

== ENCOUNTER → 2019-02-06 | Outpatient (CLI) | payer BC, SELFPAY ==
[2017-04-23 09:44] VITALS: BMI 36.5
--- NOTE | 2019-02-06 08:17 | BD_ITS ---
STUDY: DUAL ENERGY X-RAY ABSORPTIOMETRY / DXA REASON FOR EXAM: Female, 53 years old. Early menopause. TECHNIQUE: Bone Mineral Density (BMD) measurements of lumbar spine and bilateral hips were obtained. COMPARISON: Comparison is made with prior study of November 20, 2014. FINDINGS: Lumbar Spine (L1-L4): g/cm2 (1.148) / T-score (-0.2) / Z-score (0.5) Findings are suggestive of normal bone density with a low fracture risk. Left Femur Total: g/cm2 (0.896) / T-score (-0.9) / Z-score (-0.3) Left Femoral Neck: g/cm2 (0.784) / T-score (-1.8) / Z-score (-0.9) Right Femur Total: g/cm2 (0.880) / T-score (-1.0) / Z-score (-0.4) Right Femoral Neck: g/cm2 (0.796) / T-score (-1.7) / Z-score (-0.8) The T-Scores on the most recent prior examination were: Lumbar Spine (L1-L4): There has been worsening of bone density since the previous examination. Left Femur Total: which represents a worsening of 21.5%. Right Femur Total: which represents a worsening of 22.3%. BD/Dexa Bone Density Study IMPRESSION: The patient is considered osteopenic as outlined below according to World Scottie Organization (WHO) criteria with a moderate fracture risk. There has been worsening of bone density since the previous examination. Reference Information: The T-score is the number of standard deviations above or below the standard which is normal for young adults at their peak bone mineral density. The World Health Organization (WHO) interprets the T-scores as follows: Above -1 Normal bone density Between -1 and -2.5 Osteopenia Equal to / or below -2.5 Osteoporosis As a practical clinical guideline, osteopenia may be graded as follows: Mild -1 through -1.5 Moderate -1.6 through -2.0 Severe -2.1 through -2.4 The Z-score is the number of standard deviations above or below age-matched controls. A Z-score of less than -1.5 would be considered abnormal. References: 1. NIH Osteoporosis and Related Bone Diseases http://www.osteo.org 2. International Society for Clinical Densitometry http://www.iscd.org 3. National Osteoporosis Foundation http://www.nof.org Electronically Signed: Jack Pierre, at 13:24 EDT , Service support ,
== END | disposition home or self-care (01) ==
LOC: OPBD 08:16
PROVIDERS: Family Provider Family Medicine; PCP Family Medicine; Referring Provider Family Medicine; Visit Provider Family Medicine
DX: R93.7 Abnormal findings on diagnostic imaging of other parts of musculoskeletal system (principal)
CPT/HCPCS: 77080

== ENCOUNTER → 2019-02-21 | Outpatient (CLI) | payer BC, SELFPAY ==
[2019-02-21 10:25] LABS: Free T3 2.6 pg/mL (2.18-3.98); Thyroid Stim Hormone (TSH) 0.77 uIU/mL (0.358-3.74)
[2019-02-21 10:43] LABS: Vitamin D,25 Hydroxy 36.4 ng/mL (29.95-100.01)
== END | disposition home or self-care (01) ==
LOC: MFPLAB 08:15
PROVIDERS: Family Provider Family Medicine; PCP Family Medicine; Visit Provider Family Medicine
DX: E55.9 Vitamin D deficiency, unspecified (principal); E03.9 Hypothyroidism, unspecified
CPT/HCPCS: 36415; 82306; 84443; 84481

== ENCOUNTER 2019-03-08 07:30 | Outpatient (RCR) | payer BC, SELFPAY ==
--- NOTE | 2019-02-05 08:42 | HP.PTEVAL_ITS ---
Patient's Visit Information TACOS GOODE is a 53 year old F referred to Physical Therapy by Dick Corrigan MD with a diagnosis of Left Shoulder Pain. Date of Evaluation: 02/05/19 Physical Therapist: Guerline Chairez DPT - Visit Plan Frequency: 2x /Week Duration: 4 Weeks Plan: Focus on Postural correction- Scapular s/s. 02/05/19 HEP issued: Postural education, Bilateral ER, Pec corner stretch, scapular retractions - Subjective Findings: About 3 weeks ago she started to have pain in the left shoulder. She sleeps on her left shoulder and it hurts through the night and into the morning. Pain is located in the joint and radiates to the elbow and across the left pectoral muscle. Sore throughout the day but not like it feels at night. Agg: sleeping on it Worst: 8 Best: 06/03 Eases: heat pack. Does not want to have to take steroid medications. Does not like to take medications. Left hand dominate. Describes the pain as sharp and achy. Sleep study last night and they made her sleep on her back so its a little better this morning. Cancer survivior and is currently taking a medication that makes her have OA in her joints. Is having a DEXA scan tomorrow. Does have slight N/T in her fingers bu t its from the swelling from the cancer drug. Sleep: distured- left side sleeper. Work: does not work outside of her home. 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 Sits at a table and lays on the floor for school- 14 year old daughter. PMHx: cancer ovarian 10 years- 5 years since recurrance, sleep apnea, hypothyroid. PMHx: levothyroxine, letrozol, - Objective Posture: signficant rounded shoulders, forwards head, kyphosis. Gait: no deviation noted- good arm swing and trunk rotation. Palpation: tender along infraspinatus, upper trap. ROM: WFL in all planes of UE and cervical spine. Strength: Scap: fair minus, Shoulder: 4/5 throughout, Elbow: 4+/5, Wrist/Hand: WFL. Special Test: Cobian Enrrique: positive, Neer: postive, Lift off: positive, Empty can: positive. Sensation: WFL - Goals Goal 1:: Patient will be I with HEP and progression Goal Time Frame: 4-6 Weeks Goal 2:: Patient will maintain proper posture t/o tx session to demo increased scap s/s. Goal Time Frame: 4-6 Weeks Goal 3:: Patient will report 0/10 pain for 3 nights Goal Time Frame: 4-6 Weeks - Rehabilitation Potential Physical Therapy Diagnosis: Patient presents with hypomobility- she has decreased strength and muscular endurance leading to poor posture and increased pain with ADL's/sleep Rehabilitation Potential: Fair - Anticipated Interventions Patient/Client Instruction: Educate patient on: Benefits of Fitness Program Therapeutic Exercise to Include: Strength training, Endurance training, Balance training, Agility training, Body mechanics, Postural training, Flexibilty training, Scapular Strength/Stabilization For the Purpose of:: To improve muscle performance and motor function TENS: Yes Cryotherapy (ice pack, ice massage): Yes Thermo therapy (hot pack): Yes Ultrasound (thermal/non thermal): No Thank you for the opportunity to evaluate your patient. For Medicare and Medicare HMO plans, please review the plan of care and approve it. It will need to be FAXED BACK to us at [phone] for Medicare purposes. For Medicare only, by signing this I certify the plan of care. Please let me know if there are questions or concerns regarding this plan of care. Physician Signature: Date:
--- NOTE | 2019-02-22 09:31 | HP.PTEVAL2_ITS ---
Patient's Visit Information TACOS GOODE is a 53 year old F referred to Physical Therapy by Dick Corrigan MD with a diagnosis of osteopenia. Date of Evaluation: 02/22/19 Physical Therapist: Mannie Dillon PT, ATC - Visit Plan Frequency: 2x /Week Duration: 1 Week Plan: Issue and review HEP for B LE strenghtneing with primary focus on WB'ing acivity - Subjective Findings: Pt reports she has been diagnosed with having osteopenia. Pt reports she had ovarian cancer 10 years ago, and a relapse 5 years ago. Pt reports a side effect of the medication she is on is osteopenia. Pt reports she has pain at times, and is pain free at other times. Pt reports she usually walks on a treadmill daily for this condition. Pt denies LE tingling or numbness at this time. Pt reports sleep difficulty which is due to shoulder pain that she is currently being treated for. Pt is not being limited from normal daily activity at this time. Pt reports her LB, L shoulder, and hands hurt at this time secondary to the medication she is on. - Objective Objective: Neuro: B LE sensation is WNL to lgiht touch. B patellar reflex= 2/3. MMT: B LE's are grossly 4/5 throughout. ROM: B LE's are WFL at this time. Gait: Pt is able to ambulate greater than 1000' without difficulty. Balance: no deficits with gait. - Goals Goal 1:: I with HEP Goal Time Frame: 1 Week - Rehabilitation Potential Physical Therapy Diagnosis: Pt has decreased bone density and intermittent LE pain secondary to osteopenia. Rehabilitation Potential: Good - Anticipated Interventions Patient/Client Instruction: Educate patient on: Condition, Plan of Care For the Purpose of:: To improve self management Therapeutic Exercise to Include: Strength training, Balance training, Gait and locomotor training For the Purpose of:: To decrease pain, To improve muscle performance and motor function, To improve ability to perform ADL's Thank you for the opportunity to evaluate your patient. For Medicare and Medicare HMO plans, please review the plan of care and approve it. It will need to be FAXED BACK to us at [phone] for Medicare purposes. For Medicare only, by signing this I certify the plan of care. Please let me know if there are questions or concerns regarding this plan of care. Physician Signature: Date:
--- NOTE | 2019-03-08 08:08 | HP.PTDCSUM ---
HP - PT D/C Summary It has been my pleasure to treat TACOS GOODE under orders from Dick Corrigan MD, for the diagnosis of Left Shoulder Pain for a total of 8 visit(s). Discharge Date: Please see the following information for a summary of their discharge status. - Subjective Subjective: Pt states no pain coming in. States her shlds are much improved overall. Remains mostly compliant with HEP. - Objective Objective/Function: Ines sessions well. Pt feels her posture has improved and is aware of poor posture when she does it. Increase reps today without incidence. Review HEP as needed t/o session. - Goals Goal 1:: Patient will be I with HEP and progression Goal 2:: Patient will maintain proper posture t/o tx session to demo increased scap s/s. Goal 3:: Patient will report 0/10 pain for 3 nights - Plan Plan: Focus on Postural correction - Scapular s/s - D/C Information If there are questions or concerns regarding this patient's physical therapy, please feel free to call me at [phone]. Thank you for the referral of this patient. Sincerely, Mannie Dillon, PT, ATC
--- NOTE | 2019-03-08 08:30 | HP.PTDCSUM ---
HP - PT D/C Summary It has been my pleasure to treat TACOS GOODE under orders from Dick Corrigan MD, for the diagnosis of Left Shoulder Pain for a total of 9 visit(s). Discharge Date: Please see the following information for a summary of their discharge status. - Subjective Subjective: Patient reports that her shoulder is a lot better- she is doing her exercises which seems to really help. Slept through the night. - Overall Improvement % Improvement: 75 - Objective Objective/Function: Posture: good throughout treatment session. Gait: no deviation noted- good arm swing and trunk rotation. Palpation: not tender. ROM: WFL in all planes of UE and cervical spine. Strength: Scap: fair, Shoulder: 4+/5 throughout, Elbow: 5/5, Wrist/Hand: WFL. Special Test: Cobian Enrrique: positive, Neer: postive, Lift off: positive, Empty can: positive. Sensation: WFL - Goals Goal 1:: Patient will be I with HEP and progression Goal Progress: Goal Met Goal 2:: Patient will maintain proper posture t/o tx session to demo increased scap s/s. Goal Progress: Goal Met Goal 3:: Patient will report 0/10 pain for 3 nights Goal Progress: Goal Met - Plan Plan: Discharge to HEP- has bands and print out as needed - D/C Information If there are questions or concerns regarding this patient's physical therapy, please feel free to call me at [phone]. Thank you for the referral of this patient. Sincerely, ZOHREH LongoriaT
== END 2019-03-08 19:00 | disposition home or self-care (01) ==
LOC: PT 07:30
PROVIDERS: Family Provider Family Medicine; PCP Family Medicine; Referring Provider Family Medicine; Visit Provider Family Medicine
DX: M25.512 Pain in left shoulder (principal); M85.80 Other specified disorders of bone density and structure, unspecified site
CPT/HCPCS: 97110; 97161; 97164; 97530

== ENCOUNTER → 2019-04-03 09:17 | Outpatient (CLI) | payer BC, SELFPAY ==
[2017-04-23 09:44] VITALS: BMI 36.5
[2019-04-03 10:01] LABS: Absolute Lymphocyte Count 1.42 X10^3/uL (0.83-4.51); Absolute Neutrophil Count 2.9 X10^3/uL (2.0-7.7); Basophil# 0.02 X10^3/uL; Basophil% 0.4 % (0-1); Eosinophil# 0.11 X10^3/uL; Eosinophils% 2.3 % (0-5); Hematocrit 42.3 % (37-47); Hemoglobin 14.2 g/dL (12.0-15.0); Lymphocyte # 1.42 X10^3/ul (4.0); Lymphocyte % 30.3 % (19-41); Mean Corp Hgb Conc 33.6 g/dL (32-36); Mean Corpuscular Volume 89.2 fL (81-99); Mean Platelet Vol. 8.5 fl (6.2-12.0); Monocyte# 0.27 X10^3/uL; Monocyte% 5.8 % (0-10); NRBC Flagged by Analyzer 0 % (0-5); Neutrophil # 2.85 X10^3/uL (2.7-7.7); Neutrophil % 60.8 % (47-70); Platelet Count 252 K/mm3 (150-450); RBC Distribution Width CV 12.5 % (11.6-14.6); RBC Distribution Width SD 40.9 fl (35.1-43.9); Red Blood Count 4.74 M/mm3 (4.2-5.4); White Blood Count 4.7 K/mm3 (4.4-11.0)
[2019-04-03 10:31] LABS: ALB/GLOB Ratio 1.1 RATIO (0.9-2.4); AST(SGOT) 26 U/L (15-37); Alanine Aminotransfer ALT/SGPT 30 U/L (13-56); Albumin, Serum 3.9 g/dL (3.2-5.0); Alkaline Phosphatase 136 U/L (45-117); Anion Gap 6 (5-15); BUN 7 mg/dL (7-18); BUN/Creat Ratio 9.8 RATIO (10-20); Calcium,Total 9.1 mg/dL (8.5-10.1); Chloride 106 mmol/L (98-107); Creatinine, Serum 0.71 mg/dL (0.55-1.02); EST Glomerular Filtration Rate 91 mL/min (>60); Est Glom Filt Rate - Afr Amer 110 mL/min (>60); Globulin 3.5 g/dL (2.2-4.2); Glucose 112 mg/dL (74-106); Potassium 3.9 mmol/L (3.5-5.1); Protein, Total 7.4 g/dL (6.4-8.2); Sodium Level 138 mmol/L (136-145)
== END ==
PROVIDERS: Family Provider Family Medicine; PCP Family Medicine; Referring Provider Family Medicine; Visit Provider Family Medicine
DX: R10.9 Unspecified abdominal pain (principal)
CPT/HCPCS: 36415; 80053; 85025

== ENCOUNTER → 2019-04-03 09:34 | Outpatient (CLI) | payer BC, SELFPAY ==
--- NOTE | 2019-04-03 09:37 | CT_ITS ---
STUDY: CT ABDOMEN AND PELVIS WITH CONTRAST REASON FOR EXAM: Female, 53 years old. Abdominal pressure. History of ovarian cancer. RADIATION DOSAGE (If Supplied By Facility): CTDIvol = ( 20.83 ) mGy, DLP = ( 1082.41 ) mGycm TECHNIQUE: Transaxial images were obtained from the dome of the diaphragm to the symphysis pubis without oral contrast. 100ML ISOVUE 370 was administered. Sagittal and coronal images were reconstructed. Individualized dose optimization techniques were used for this CT. COMPARISON: Comparison is made with prior study dated January 22, 2011. FINDINGS: Calcified granuloma in the right lower lobe. The visualized portions of the heart are within normal limits. There is decreased attenuation of the liver consistent with steatosis. The patient is status post cholecystectomy. Normal spleen. Normal pancreas. Normal bilateral adrenal glands. Normal right kidney. Normal left kidney. Normal visualized stomach. Normal small intestine. Normal colon. The appendix is visualized and appears normal. Normal abdominal aorta. Normal inferior vena cava. Normal retroperitoneum. Normal urinary bladder. There is absence of the uterus consistent with a prior hysterectomy. Normal abdominal wall. Normal osseous structures. CT/Abdomen/Pelvis WITH Contrast IMPRESSION: Status post hysterectomy and cholecystectomy. Diffuse fatty infiltration of the liver. Electronically Signed: Jack Pierre, at 11:04 EST , Service support ,
[2019-04-03 10:10] LABS: CREATININE FINGERSTICK 0.7 mg/dL (0.55-1.02); EGFR FINGERSTICK > 60.0000 mL/min (>60)
== END ==
PROVIDERS: Family Provider Family Medicine; PCP Family Medicine; Referring Provider Family Medicine; Visit Provider Family Medicine
DX: R10.9 Unspecified abdominal pain (principal)
CPT/HCPCS: 74177; Q9967; A4216

== ENCOUNTER → 2019-04-27 07:20 | Outpatient (CLI) | payer BC, SELFPAY ==
[2019-04-12 13:40] VITALS: BMI 36.5
[2019-04-27 08:37] LABS: Free T3 2.4 pg/mL (2.18-3.98); Thyroid Stim Hormone (TSH) 1.09 uIU/mL (0.358-3.74)
== END ==
PROVIDERS: Family Provider Family Medicine; PCP Family Medicine; Referring Provider Family Medicine; Visit Provider Family Medicine
DX: E03.9 Hypothyroidism, unspecified (principal)
CPT/HCPCS: 36415; 84443; 84481

== ENCOUNTER → 2019-05-27 | Outpatient (CLI) | payer BC, SELFPAY ==
[2019-04-12 13:40] VITALS: BMI 36.5
--- NOTE | 2019-05-27 11:53 | RAD_ITS ---
STUDY: X-RAY - LEFT ANKLE REASON FOR EXAM: Female, 53 years old. Rolled ankle earlier today TECHNIQUE: 3 view(s) of the ankle. COMPARISON: None. FINDINGS: Normal visualized distal tibia and fibula. Normal medial and lateral malleoli. Normal tibiotalar articulation and ankle mortise. Normal visualized talus and calcaneus. Nondisplaced fracture at the base of the fifth metatarsal. The visualized subtalar, talonavicular, calcaneocuboid and tarsal articulations are normal. Soft tissue swelling. RAD/Ankle min 3 Views IMPRESSION: Nondisplaced fracture at the base of the fifth metatarsal with overlying soft tissue swelling. Electronically Signed: Jack Pierre, at 12:50 EST , Service support ,
--- NOTE | 2019-05-27 11:53 | RAD_ITS ---
STUDY: X-RAY - LEFT FOOT CLINICAL: Female, 53 years old. Rolled ankle earlier today TECHNIQUE: 3 view(s) of the foot. COMPARISON: None. FINDINGS: There is a plantar calcaneal spur. Normal visualized subtalar, talonavicular, calcaneocuboid, tarsal and tarsometatarsal articulations. Nondisplaced transverse fracture at the base of the fifth metatarsal. Normal metatarsophalangeal joint of the great toe. Normal tibial and fibular sesamoid bones. Normal interphalangeal joint of the great toe. Normal phalanges of the great toe. Normal second through fifth metatarsophalangeal joints. Normal interphalangeal joints and phalanges of the lesser toes. Soft tissue swelling. RAD/Foot min 3 Views IMPRESSION: Nondisplaced fracture at the base of the fifth metatarsal. Plantar spur. Electronically Signed: Jack Pierre, at 12:49 EST , Service support ,
== END | disposition home or self-care (01) ==
LOC: MTRAD 11:51
PROVIDERS: PCP Family Medicine; Referring Provider Nurse Practitioner Family; Visit Provider Nurse Practitioner Family
DX: M25.572 Pain in left ankle and joints of left foot (principal)
CPT/HCPCS: 73610; 73630

== ENCOUNTER → 2019-05-28 | Outpatient (CLI) | payer BC, SELFPAY ==
[2019-04-12 13:40] VITALS: BMI 36.5
--- NOTE | 2019-05-28 10:08 | CT_ITS ---
STUDY: CT LEFT FOOT REASON FOR EXAM: Female, 53 years old. FX 5TH METATARSAL LEFT FOOT -- HX-OVARIAN CA W/ ORAL CHEMO RADIATION DOSAGE (If Supplied By Facility): CTDIvol = ( 15.35 ) mGy, DLP = ( 338.41 ) mGycm TECHNIQUE: Thin section transaxial imaging of the foot was obtained, with sagittal and coronal reconstructed images. Individualized dose optimization techniques were used for this CT. COMPARISON: Comparison is made with prior radiograph dated May 27, 2019. FINDINGS: Small plantar spur. Normal visualized tibiotalar, subtalar, talonavicular, calcaneocuboid, tarsal and tarsometatarsal articulations. There is a nondisplaced comminuted fracture at the base of the fifth metatarsal. Normal metatarsophalangeal joint of the great toe. Normal tibial and fibular sesamoid bones. Normal interphalangeal joint of the great toe. Normal phalanges of the great toe. Normal second through fifth metatarsophalangeal joints. Normal interphalangeal joints and phalanges of the lesser toes. Soft tissue swelling. CT/Extremity Lower without Contra IMPRESSION: Nondisplaced comminuted fracture at the base of the fifth metatarsal with overlying soft tissue swelling. Electronically Signed: Jack Pierre, at 11:00 EST , Service support ,
== END | disposition home or self-care (01) ==
PROVIDERS: PCP Family Medicine; Referring Provider Podiatrist Foot & Ankle Surgery; Visit Provider Podiatrist Foot & Ankle Surgery
DX: S92.355A Nondisplaced fracture of fifth metatarsal bone, left foot, initial encounter for closed fracture (principal)
CPT/HCPCS: 73700

== ENCOUNTER → 2019-06-12 08:58 | Outpatient (CLI) | payer BC, SELFPAY ==
[2019-04-12 13:40] VITALS: BMI 36.5
[2019-06-15 10:12] LABS: H. PYLORI STOOL AG Negative (Negative)
== END ==
PROVIDERS: PCP Family Medicine; Referring Provider Surgery; Visit Provider Surgery
DX: K27.9 Peptic ulcer, site unspecified, unspecified as acute or chronic, without hemorrhage or perforation (principal)

== ENCOUNTER → 2019-09-26 | Outpatient (CLI) | payer BC, SELFPAY ==
[2019-04-12 13:40] VITALS: BMI 36.5
[2019-09-26 13:15] LABS: Anion Gap 7 (5-15); BUN 7 mg/dL (7-18); BUN/Creat Ratio 11.3 RATIO (10-20); Calcium,Total 9.3 mg/dL (8.5-10.1); Chloride 103 mmol/L (98-107); Creatinine, Serum 0.62 mg/dL (0.55-1.02); EST Glomerular Filtration Rate 107 mL/min (>60); Est Glom Filt Rate - Afr Amer 129 mL/min (>60); Free T3 2.6 pg/mL (2.18-3.98); Glucose 93 mg/dL (74-106); Magnesium 2.3 mg/dL (1.6-2.6); Sodium Level 137 mmol/L (136-145); Thyroid Stim Hormone (TSH) 1.44 uIU/mL (0.358-3.74)
== END | disposition home or self-care (01) ==
LOC: MFPLAB 09:40
PROVIDERS: PCP Family Medicine; Referring Provider Family Medicine; Visit Provider Family Medicine
DX: E03.9 Hypothyroidism, unspecified (principal); R00.2 Palpitations
CPT/HCPCS: 36415; 80048; 83735; 84436; 84443; 84481

== ENCOUNTER 2020-01-20 08:30 | Outpatient (RCR) | payer BC, SELFPAY ==
[2019-04-12 13:40] VITALS: BMI 36.5
--- NOTE | 2020-01-08 17:00 | HP.PTEVAL ---
Patient's Visit Information TACOS GOODE is a 54 year old F referred to Physical Therapy by Dr. Dick Corrigan MD with a diagnosis of dizzyness. Date of Evaluation: 01/08/20 Physical Therapist: Milad Vazquez DPT, OCS, CSCS - Visit Plan Frequency: 1x/Week Duration: 4-6 Weeks Plan: weekly x 2-4 as helpful for monitor positional and MSQ/adaptation need. - Subjective I have vertigo. Had kink in neck on ugust adn chiropractic adjustment adn she thinks it started then. Saw a docotr and diagnosed with BPPV and sent home to do Kinsey and did not work. Saw dr. Rios a couple days ago. May get MRI after sleeping sitting up for 10 days. Symptoms are nausea and dizz much of day. On treadmill feels pretty good. Went to [employer] yesterday adn did not feel good. Wakes up feeling OK but moving makes her worse/nausea and dizzyness. Increasing in severity over last couple weeks. Still not constant and feels good between spells. Not necessarily in response to changing positions. Has some neck pain. Activity is effected as she does not want to go anywhere and is hesitant.Challenge to do regular stuff. [facility] ADLs are getting done. Not employed. Sleeping is OK, normal for her. No falls. - Objective Vor walking slow but not unsteady. Walks normal otherwise adn safe with trasnfers and steps with rail. cervical aROM WFL and without evidence of pain today. - L hallpike dillon. - R hallpike but does have asymmetrical dizzyness/nauseousness. - roll test. Treated with R kinsey based on historya nd asymmetrical dizzyness. Oculomotor: no nystagmus with gaze or head shake. - skew eye deviation adn - ocular tilt. Pursuit and saccades are normal. VOR slight dizzyness horizontally. - Balance Scores Functional Gait Assessment Score: 29 % Disability: 3.3400 CATSIB Score (Max score 120 seconds): 120 - Goals Goal 1:: Abolish vertigo Goal Time Frame: 2-4 Weeks Goal 2:: Pt feel 90% back to normal activity Goal Time Frame: 2-4 Weeks - Rehabilitation Potential Physical Therapy Diagnosis: vertigo possible BPPV vs hypofunction. Rehabilitation Potential: Questionable - Anticipated Interventions Patient/Client Instruction: Educate patient on: Condition, Plan of Care For the Purpose of:: To increase tolerance to activity/condition/position, To improve ability of physical actions for home/community/work/leisure Comment: adaptation adn positional ex. For the Purpose of:: To increase tolerance to activity/condition/position, To improve ability of physical actions for home/community/work/leisure Thank you for the opportunity to evaluate your patient. For Medicare and Medicare HMO plans, please review the plan of care and approve it. It will need to be FAXED BACK to us at [phone] for Medicare purposes. For Medicare only, by signing this I certify the plan of care. Please let me know if there are questions or concerns regarding this plan of care. Physician Signature: Date:
--- NOTE | 2020-03-31 17:32 | HP.PT.NRP ---
TACOS GOODE was seen in my office for initial evaluation on 01/08/20. The following Plan of Care was established for this patient: Initial Frequency: 1x/Week Initial Duration: 4-6 Weeks Patient/Client Instruction: Educate patient on: Condition, Plan of Care For the Purpose of:: To increase tolerance to activity/condition/position, To improve ability of physical actions for home/community/work/leisure For the Purpose of:: To increase tolerance to activity/condition/position, To improve ability of physical actions for home/community/work/leisure This patient was last seen in our office 01/20/20. Pertinent comments regarding their Physical therapy will appear below: Pt seen 3 visits for positional treatments and felt 75% better. She cancelled her last visit due to not feeling well and has not rescheduled. At this point, it has been over two months and I will discontinue due to nonattendance. At this point I will be discontinuing this patient from physical therapy. I would be happy to see this patient again in the future if found appropriate by the physician. Thank you! Milad Vazquez, DPT, OCS, CSCS
== END 2020-01-20 19:00 | disposition home or self-care (01) ==
LOC: PT 08:30
PROVIDERS: PCP Family Medicine; Referring Provider Family Medicine; Visit Provider Family Medicine
DX: R42 Dizziness and giddiness (principal)
CPT/HCPCS: 97161; 97530

== ENCOUNTER → 2020-01-24 | Outpatient (CLI) | payer BC, SELFPAY ==
[2019-04-12 13:40] VITALS: BMI 36.5
[2020-01-24 12:22] LABS: Erythrocyte Sedimentation Rate 9 mm/hr (0-30)
[2020-01-24 12:24] LABS: Absolute Lymphocyte Count 1.61 X10^3/uL (0.83-4.51); Absolute Neutrophil Count 4.3 X10^3/uL (2.0-7.7); Basophil# 0.02 X10^3/uL; Basophil% 0.3 % (0-1); Eosinophil# 0.09 X10^3/uL; Eosinophils% 1.4 % (0-5); Hematocrit 41.9 % (37-47); Lymphocyte # 1.61 X10^3/ul (4.0); Lymphocyte % 25.2 % (19-41); Mean Corp Hgb Conc 33.4 g/dL (32-36); Mean Corpuscular Hgb 29.5 pg (27.0-32.0); Mean Corpuscular Volume 88.2 fL (81-99); Mean Platelet Vol. 8.3 fl (6.2-12.0); Monocyte# 0.36 X10^3/uL; Monocyte% 5.6 % (0-10); NRBC Flagged by Analyzer 0 % (0-5); Neutrophil # 4.27 X10^3/uL (2.7-7.7); Platelet Count 278 K/mm3 (150-450); RBC Distribution Width SD 38.7 fl (35.1-43.9); Red Blood Count 4.75 M/mm3 (4.2-5.4); White Blood Count 6.4 K/mm3 (4.4-11.0)
[2020-01-24 13:10] LABS: AST(SGOT) 39 U/L (15-37); Alanine Aminotransfer ALT/SGPT 61 U/L (13-56); Albumin, Serum 3.8 g/dL (3.2-5.0); Alkaline Phosphatase 137 U/L (45-117); Anion Gap 5 (5-15); BUN 7 mg/dL (7-18); BUN/Creat Ratio 10.4 RATIO (10-20); Calcium,Total 8.9 mg/dL (8.5-10.1); Chloride 105 mmol/L (98-107); Creatinine, Serum 0.67 mg/dL (0.55-1.02); EST Glomerular Filtration Rate 97 mL/min (>60); Est Glom Filt Rate - Afr Amer 117 mL/min (>60); Estradiol < 11.0 pg/mL; Globulin 3.7 g/dL (2.2-4.2); Glucose 109 mg/dL (74-106); Potassium 3.6 mmol/L (3.5-5.1); Protein, Total 7.5 g/dL (6.4-8.2); Sodium Level 137 mmol/L (136-145); Thyroid Stim Hormone (TSH) 1.25 uIU/mL (0.358-3.74)
[2020-01-27 14:36] LABS: ANTINUCLEAR ANTIBODIES DIRECT Negative (Negative); HCG BETA-SUBUNIT QUANT. 2 mIU/mL (.)
[2020-01-27 16:09] LABS: PROEL- A/G Ratio 1.1 (0.7-1.7); PROEL- Albumin 3.6 g/dL (2.9-4.4); PROEL- Alpha-1 Globulin 0.2 g/dL (0.0-0.4); PROEL- Globulin, Total 3.2 g/dL (2.2-3.9); PROEL- TOTAL PROTEIN 6.8 g/dL (6.0-8.5)
== END | disposition home or self-care (01) ==
LOC: MFPLAB 11:10
PROVIDERS: PCP Family Medicine; Referring Provider Family Medicine; Visit Provider Family Medicine
DX: C56.9 Malignant neoplasm of unspecified ovary (principal); R42 Dizziness and giddiness
CPT/HCPCS: 36415; 80053; 82670; 84165; 84443; 84702; 85025; 85652; 86038; 86140

== ENCOUNTER → 2020-01-30 | Outpatient (CLI) | payer BC, SELFPAY ==
[2019-04-12 13:40] VITALS: BMI 36.5
--- NOTE | 2020-01-30 06:38 | CT_ITS ---
STUDY: CT MAXILLOFACIAL SINUSES REASON FOR EXAM: Female, 54 years old. SINUSITIS RADIATION DOSAGE (If Supplied By Facility): CTDIvol = ( 33.06 ) mGy, DLP = ( 742.94 ) mGycm TECHNIQUE: The patient was scanned in a multi detector CT scanner. High resolution axial imaging was performed without the administration of intravenous contrast material. Sagittal and coronal images were reconstructed. Individualized dose optimization techniques were used for this CT. COMPARISON: None. FINDINGS: FRONTAL SINUSES: Normal aeration, without mucosal inflammatory disease. ETHMOIDAL SINUSES: Opacification some ethmoid air cells consistent with sinusitis. MAXILLARY SINUSES: To mucous retention cysts or polyps along the anterior and lateral carver of the left maxillary sinus consistent with chronic sinusitis. SPHENOIDAL SINUSES: Normal aeration, without mucosal inflammatory disease. There is patency of the bilateral maxillary infundibuli with normal uncinate processes, ethmoid bullae, and hiatus semilunaris. There is paradoxical curvature of the left middle turbinate. Normal bilateral inferior turbinates. There is a right sided nasal septal deviation with a right sided nasal septal spur. There is patency of the bilateral nasal airways. The visualized osseous structures are normal. The visualized bilateral orbital contents are normal. CT/Sinus/Facial Bone IMPRESSION: 1. Mild chronic ethmoid and left maxillary sinusitis. 2. Patent ostiomeatal units bilaterally. 3. Left-sided ifeoma bullosa. 4. Nasal septal deviation to the right with a spur between the right middle and inferior turbinates. Electronically Signed: Cameron Ingram MD at 8:47 EDT Tel , Service support ,
== END | disposition home or self-care (01) ==
LOC: CT 06:37
PROVIDERS: PCP Family Medicine; Referring Provider Family Medicine; Visit Provider Family Medicine
DX: J32.9 Chronic sinusitis, unspecified (principal)
CPT/HCPCS: 70486

== ENCOUNTER → 2020-02-01 | Outpatient (CLI) | payer BC, SELFPAY ==
[2019-04-12 13:40] VITALS: BMI 36.5
--- NOTE | 2020-02-01 08:52 | MRI_ITS ---
STUDY: MRI BRAIN WITHOUT CONTRAST REASON FOR EXAM: Female, 54 years old. dizziness, vertigo, nausea since November TECHNIQUE: Standardized multiplanar fat and water weighted pulse sequences were obtained. COMPARISON: None. FINDINGS: Normal size of the ventricles and extra-axial spaces for the patient''s age. There are multiple white matter hyperintensities, distributed throughout the deep white matter tracts of the cerebral hemispheres, consistent with moderate chronic white matter ischemic changes. There is no evidence for recent intracranial ischemia or other cause of cytotoxic edema on diffusion weighted imaging (DWI). Normal T2* images of the brain without demonstrated susceptibility artifact. There is no demonstrated hemosiderin stain. Normal bilateral basal ganglia. Normal thalami. There is no extra-axial fluid accumulation. Normal flow voids within the major intracranial circulation suggesting patency by spin echo criteria. Normal sella turcica, pituitary gland, infundibular stalk, optic chiasm and hypothalamus. Normal tectal plate and pineal gland. Normal midbrain, stella and medulla. Normal cerebellum. Normal basal cisterns. Normal bilateral temporal bones. Normal bilateral internal auditory canals. No demonstrated orbital abnormality, within the constraints of a routine brain study. Normal visualized paranasal sinuses. Bilateral mastoid effusions are present. Normal visualized soft tissue structures. Normal visualized upper cervical spine. MRI/Brain without Contrast IMPRESSION: 1. No evidence of acute intracranial bleed, mass or ischemia. 2. Bilateral mastoid effusions, clinically correlate for congestive versus inflammatory process. Electronically Signed: Maynor Montero DO at 9:44 EDT , Service support ,
== END | disposition home or self-care (01) ==
LOC: MRI 08:46
PROVIDERS: PCP Family Medicine; Referring Provider Family Medicine; Visit Provider Family Medicine
DX: R26.89 Other abnormalities of gait and mobility (principal)
CPT/HCPCS: 70551

== ENCOUNTER → 2020-02-04 | Outpatient (CLI) | payer BC, SELFPAY ==
[2019-04-12 13:40] VITALS: BMI 36.5
[2020-02-04 09:25] LABS: Lyme Ab Screen Interpretation REF LAB
[2020-02-05 16:09] LABS: Lyme Scn Total Ab w/Rflx <0.91 ISR (0.00-0.90)
== END | disposition home or self-care (01) ==
LOC: MFPLAB 09:22
PROVIDERS: PCP Family Medicine; Referring Provider Family Medicine; Visit Provider Family Medicine
DX: R26.89 Other abnormalities of gait and mobility (principal)
CPT/HCPCS: 36415; 86618

== ENCOUNTER → 2020-03-17 08:06 | Outpatient (CLI) | payer BC, SELFPAY ==
[2019-04-12 13:40] VITALS: BMI 36.5
[2020-03-17 10:38] LABS: Anion Gap 6 (5-15); BUN 8 mg/dL (7-18); BUN/Creat Ratio 10.9 RATIO (10-20); Chloride 107 mmol/L (98-107); Cholesterol 227 mg/dL (200); Creatinine, Serum 0.73 mg/dL (0.55-1.02); EST Glomerular Filtration Rate 88 mL/min (>60); Est Glom Filt Rate - Afr Amer 106 mL/min (>60); Free T3 2.8 pg/mL (2.18-3.98); Glucose 170 mg/dL (74-106); High Density Lipoprotein 39 mg/dL; Potassium 3.9 mmol/L (3.5-5.1); Sodium Level 140 mmol/L (136-145); Thyroid Stim Hormone (TSH) 1.33 uIU/mL (0.358-3.74); Triglycerides 236 mg/dL; Very Low Density Lipoprotein 47 mg/dL (5-40)
== END ==
PROVIDERS: PCP Family Medicine; Referring Provider Family Medicine; Visit Provider Family Medicine
DX: I10 Essential (primary) hypertension (principal); E03.9 Hypothyroidism, unspecified
CPT/HCPCS: 36415; 80048; 80061; 84436; 84443; 84481

== ENCOUNTER → 2020-03-18 10:44 | Outpatient (CLI) | payer BC, SELFPAY ==
[2019-04-12 13:40] VITALS: BMI 36.5
[2020-03-18 13:08] LABS: Hemoglobin A1c 7.1 % (3.8-5.6)
== END ==
PROVIDERS: PCP Family Medicine; Referring Provider Family Medicine; Visit Provider Family Medicine
DX: R73.09 Other abnormal glucose (principal)
CPT/HCPCS: 36415; 83036

== ENCOUNTER → 2020-03-25 09:50 | Outpatient (CLI) | payer BC, SELFPAY ==
[2019-04-12 13:40] VITALS: BMI 36.5
--- NOTE | 2020-03-25 13:24 | NEURO ---
NCS and/or EMG Patient Report Ordering Doctor: Dick Corrigan DATE OF SERVICE: 03/25/20 Ayah Soliz is a 54-year-old female who presents for electrodiagnostic testing of the upper limbs. She reports numbness and tingling in the hands as well as neck pain. Electrodiagnostic findings: Median motor nerve demonstrates prolonged distal latency with normal amplitude and conduction velocity bilaterally. Normal ulnar motor response,, including conduction across the elbow. Prolonged median sensory latencies at the wrist bilaterally. Normal ulnar and radial sensory responses. Prolonged right median F wave. On needle EMG, all muscles tested in the upper limbs as well as the cervical paraspinal showed no evidence of denervation with normal motor unit action potentials. Electrodiagnostic impression: This is an abnormal study in the upper limbs 1. Electrodiagnostic findings demonstrate bilateral median mononeuropathy. This is consistent with a moderate to advanced bilateral carpal tunnel syndrome. 2. No electrodiagnostic evidence is noted for cervical radiculopathy.
== END ==
PROVIDERS: PCP Family Medicine; Referring Provider Family Medicine; Visit Provider Family Medicine
DX: R20.2 Paresthesia of skin (principal)
CPT/HCPCS: 95886; 95913

== ENCOUNTER → 2020-05-13 09:43 | Outpatient (CLI) | payer BC, SELFPAY ==
[2019-04-12 13:40] VITALS: BMI 36.5
[2020-05-13 12:40] LABS: Anion Gap 5 (5-15); BUN 5 mg/dL (7-18); Calcium,Total 9.3 mg/dL (8.5-10.1); Chloride 107 mmol/L (98-107); Creatinine, Serum 0.56 mg/dL (0.55-1.02); EST Glomerular Filtration Rate 120 mL/min (>60); Est Glom Filt Rate - Afr Amer 146 mL/min (>60); Free T3 2.9 pg/mL (2.18-3.98); Glucose 87 mg/dL (74-106); Potassium 3.8 mmol/L (3.5-5.1); Sodium Level 138 mmol/L (136-145); T4 Free Direct 1.55 ng/dL (0.76-1.46); Thyroid Stim Hormone (TSH) 0.04 uIU/mL (0.358-3.74)
== END ==
PROVIDERS: PCP Family Medicine; Referring Provider Family Medicine; Visit Provider Family Medicine
DX: E03.9 Hypothyroidism, unspecified (principal)
CPT/HCPCS: 36415; 80048; 84439; 84443; 84481

== ENCOUNTER → 2020-06-02 14:21 | Outpatient (CLI) | payer BC, SELFPAY ==
[2019-04-12 13:40] VITALS: BMI 36.5
[2020-06-02 18:30] LABS: Hemoglobin A1c 4.9 % (3.8-5.6)
== END ==
PROVIDERS: PCP Family Medicine; Referring Provider Family Medicine; Visit Provider Family Medicine
DX: R73.01 Impaired fasting glucose (principal)
CPT/HCPCS: 36415; 83036

== ENCOUNTER → 2020-07-09 07:23 | Outpatient (CLI) | payer BC, SELFPAY ==
[2019-04-12 13:40] VITALS: BMI 36.5
[2020-07-09 08:30] LABS: Vitamin D,25 Hydroxy 59.2 ng/mL
[2020-07-09 08:38] LABS: Anion Gap 6 (5-15); BUN 7 mg/dL (7-18); BUN/Creat Ratio 10.9 RATIO (10-20); Calcium,Total 9.5 mg/dL (8.5-10.1); Chloride 103 mmol/L (98-107); Cholesterol 188 mg/dL (200); Creatinine, Serum 0.64 mg/dL (0.55-1.02); EST Glomerular Filtration Rate 102 mL/min (>60); Est Glom Filt Rate - Afr Amer 123 mL/min (>60); Glucose 91 mg/dL (74-106); High Density Lipoprotein 43 mg/dL; Potassium 3.9 mmol/L (3.5-5.1); Sodium Level 138 mmol/L (136-145); Thyroid Stim Hormone (TSH) 0.71 uIU/mL (0.358-3.74); Triglycerides 95 mg/dL; Very Low Density Lipoprotein 19 mg/dL (5-40)
== END ==
PROVIDERS: PCP Family Medicine; Referring Provider Family Medicine; Visit Provider Family Medicine
DX: E03.9 Hypothyroidism, unspecified (principal); I10 Essential (primary) hypertension; E55.9 Vitamin D deficiency, unspecified
CPT/HCPCS: 36415; 80048; 80061; 82306; 84439; 84443; 84481

== ENCOUNTER → 2020-09-28 16:38 | Outpatient (CLI) | payer BC, SELFPAY ==
[2019-04-12 13:40] VITALS: BMI 36.5
--- NOTE | 2020-09-28 17:13 | MRI_ITS ---
STUDY: MRI RIGHT KNEE REASON FOR EXAM: Chronic instability of the right knee for several months, no specific injury. TECHNIQUE: Standardized fat and water weighted pulse sequences were obtained in all 3 orthogonal planes. COMPARISON: None. FINDINGS: Normal medial meniscus. There is mild arthrosis of the medial femorotibial compartment with mild irregularity of the articular cartilage of the medial femoral condyle (T2 sagittal image 16). Normal medial femoral condyle and tibial plateau. Normal medial collateral ligamentous complex (MCL). Normal distal semimembranosus, gracilis and semitendinosus tendons. Normal lateral meniscus. Normal hyaline cartilage of the lateral femorotibial compartment. Normal lateral femoral condyle and tibial plateau. Normal proximal tibiofibular articulation. Normal lateral collateral (fibular) ligament. Normal popliteus tendon. Normal biceps femoris tendon. Normal anterior cruciate ligament (ACL). Normal posterior cruciate ligament (PCL). Normal congruent patellofemoral articulation. There is high-grade chondromalacia of the medial patellar facet (T2 axial image 8) with subchondral cystic change. Normal medial and lateral patellar retinaculum. Normal visualized quadriceps tendon. Normal patellar tendon. Normal Hoffa''s fat pad. There is a minimal volume of fluid in the knee joint. The soft tissues are unremarkable. The otherwise visualized osseous structures are unremarkable. 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 No demonstrated meniscal or ligamentous injury. Electronically Signed: Jerson Multani MD at 9:57 EDT Tel , Service support ,
== END ==
PROVIDERS: PCP Family Medicine; Referring Provider Physician Assistant Surgical; Visit Provider Physician Assistant Surgical
DX: M23.51 Chronic instability of knee, right knee (principal)
CPT/HCPCS: 73721

== ENCOUNTER 2021-01-14 20:30 | Emergency (ER) | payer BC, SELFPAY ==
[2021-01-14 20:31] VITALS: BP 158/77; PULSE 82; RESP 16; TEMP 36.4; O2SAT 100; BMI 29.4
--- NOTE | 2021-01-14 20:44 | EDS_ITS ---
HPI History of Present Illness Chief Complaint: Fever Detail of Chief Complaint: Covid positive Informant: patient Onset/Context/Timing Onset: Days (Onset of symptoms January 08, positive test January 11) Context: Sudden Onset Timing: Continuous and Waxes and wanes Quality: Upper respiratory, myalgias arthralgias and fever Location: Previously documented Current Severity: Mild Maximum Severity: Moderate Worsened by: Dyspnea, dyspnea on exertion, T-max 102.0 ?F, symptoms of Covid Associated Symptoms Associated Symptoms: No vomiting or diarrhea does report lightheadedness Narrative Narrative: Patient is a 55-year-old woman with history of hypertension, dyslipidemia who presents with Covid-like symptoms. Onset of illness January 08, Monday. Test was performed on January 11. Test was positive. Patient no longer complains of headache. She denies photophobia, neck pain or neck stiffness. She does report mild nasal symptoms. She denies earache, drainage from ears or ringing in ears. She does report sore throat. Does have a cough, dyspnea at rest and dyspnea with activity. She denies chest discomfort. She does report nausea without vomiting or diarrhea. She denies urologic symptoms. She does give orthostatic symptoms. She does report myalgias arthralgias. She has no prior history of DVT or PE. She denies swelling or discoloration of her lower extremities. She denies pleuritic chest pain. Prior similar symptoms: Yes Recent Illness/Hospitalization: Yes [facility] Medical History (Updated 01/14/21 @ 21:[address] Jabier Zamorano MD) Atypical chest pain Dyslipidemia Fatty liver History of ovarian cancer Hypertension Mitral valve prolapse Home Medications cholecalciferol (vitamin D3) 10,000 unit PO DAILY 06/03/14 [History Last Taken 06/02/14] letrozole 2.5 mg PO DAILY 08/04/15 [History Last Taken Unknown] metformin 500 mg PO BID 04/23/17 [History Last Taken Unknown] levothyroxine 88 mcg tablet PO 04/12/19 [History Last Taken Unknown] mecobalamin (vitamin B12) 1,000 mcg disintegrating tablet,sublingual 1,000 mcg SUBLINGUAL DAILY 04/12/19 [History Last Taken Unknown] omeprazole 20 mg capsule,delayed release PO 04/12/19 [History Last Taken Unknown] sucralfate 1 gram tablet 1 g PO QACHS #120 tab 04/12/19 [Rx Last Taken Unknown] omeprazole 20 mg capsule,delayed release 20 mg PO DAILY #90 cap 06/11/19 [Rx Last Taken Unknown] Allergy/AdvReac Type Severity Reaction Status Date / Time ampicillin Allergy Rash Verified 01/14/21 20:30 doxycycline Allergy Unknown Verified 01/14/21 20:30 Sulfa (Sulfonamide Allergy Unknown Verified 01/14/21 20:30 Antibiotics) tetracycline [Tetracycline] Allergy Unknown Verified 01/14/21 20:30 erythromycin base AdvReac Other Verified 01/14/21 20:30 [Erythromycin Base] Family History Mother Diabetes Heart disease Hypertension Rheumatoid arthritis Surgical History History of section History of cholecystectomy History of colonoscopy (~2012) History of tonsillectomy History of total hysterectomy Social History (Updated 01/14/21 @ 20:[address] Jabier Zamorano MD) household members: spouse Smoking Status: Never smoker alcohol intake: current alcohol intake frequency: other substance use type: does not use ROS ROS ED Constitutional Constitutional ED: Reports chills and fever(s); Denies subjective, sweats or weight loss Eyes Eyes: Denies blurry vision, change in vision or diplopia ENT ENT ED: Reports rhinorrhea and sore throat; Denies ear pain Cardiovascular Cardiovascular: Denies chest pain, orthopnea, palpitations, paroxysmal nocturnal dyspnea or racing heartbeat Respiratory/Chest Respiratory/Chest: Reports cough, dyspnea and dyspnea on exertion; Denies orthopnea, paroxysmal nocturnal dyspnea or sputum Gastrointestinal Gastrointestinal: Reports nausea; Denies abdominal pain, constipation, diarrhea or vomiting Genitourinary Genitourinary ED: Denies dysuria, hematuria or urinary frequency Musculoskeletal Musculoskeletal: Reports arthralgias and myalgias; Denies back pain or neck pain Integumentary Denies Abrasions or rash Neurologic Neurologic: Denies headache(s), paresthesias or weakness Endocrine Endocrinology: Denies polydipsia, polyphagia or polyuria Hematologic/Lymphatic Hematologic/Lymphatic: Denies easy bleeding or easy bruising EXAM Physical Exam Const Vital Signs: 01/14/21 20:31 01/14/21 21:26 Temperature 97.5 F L Temperature Source Temporal Pulse Rate 82 Respiratory Rate 16 Respiratory Effort Normal Non-Labored Blood Pressure 158/77 H Blood Pressure Mean 104 Pulse Ox 100 Oxygen Delivery Method Room Air Positive well nourished, well developed and obese General Appearance ED: well developed and NAD Nutritional Appearance: obese HEENT Reports TM's clear and dry mucous membranes HEENT Narrative: Head is atraumatic normocephalic. Nares patent. Uvula midline. There is no erythema or exudate. Tympanic Membrane ED: Yes TM's clear Mouth ED: Yes dry mucous membranes Mouth: dry mucous membranes Eyes PERRL and EOMs intact bilaterally General Eye ED: Negative for pale conjunctiva or scleral icterus Neck no lymphadenopathy, supple and no JVD Chest Wall inspection of chest normal Resp normal respiratory effort and No clear to auscultation bilaterally Effort and Inspection: pain with movement; Negative for retractions Auscultation: rales right base; Negative for wheezes or diminished lung sounds Cardio regular rate, regular rhythm, S1 normal heart sound, S2 normal heart sound and no murmurs GI normal to inspection, nondistended, normoactive bowel sounds and non-tender Palpation: soft Back/Spine no CVA tenderness Cervical Spine: Negative for cervical spine tenderness Thoracic Spine / Upper Back: Negative for thoracic spinal tenderness or paraspinal muscle tenderness Extremity normal to inspection Extremity Narrative: There is no asymmetry, swelling, discoloration, leg vein distention, palpable cords or tenderness along the distribution of the deep venous system. General Extremety ED: Negative for edema or tenderness General Extremity: Negative for edema Neuro oriented x3, CN's II-XII intact bilaterally and no sensory deficits noted Sensorium / Orientation: alert Motor Exam: strength 5/5 throughout Psych mental status grossly normal Skin no rashes or lesions noted and no wounds MDM MDM MDM Narrative Medical decision making narrative: With patient complaining of orthostatic symptoms will administer 500 cc of normal saline since clinically she appears dehydrated. Basic metabolic panel was obtained to assess electrolytes and renal function. CBC to assess for anemia. Chest x-ray because of rales in the right lower base. Monitor reveals a sinus rhythm with no ectopy and rate of 84. Lab Data Attestation: I reviewed the patient's lab results. Lab results narrative: Neutropenia due to Covid with lymphocytosis. Comprehensive metabolic panel is unremarkable. Lactate is normal. Labs: Laboratory Results - last 24 hr 01/14/21 01/14/2121 21:00 21:00 21:00 WBC 2.5 L RBC 4.78 Hgb 14.0 Hct 42.5 MCV 88.9 MCH 29.3 MCHC 32.9 RDW Std Deviation 41.6 RDW Coeff of Nestor 12.6 Plt Count 200 MPV 8.0 Immature Gran % (Auto) 0.000 Neut % (Auto) 46.4 L Lymph % (Auto) 40.8 Aiken % (Auto) 12.0 H Eos % (Auto) 0.4 Baso % (Auto) 0.4 Absolute Neuts (auto) 1.2 L Absolute Lymphs (auto) 1.02 Nucleated RBC % 0 Sodium 134 L Potassium 3.8 Chloride 102 Carbon Dioxide 27.0 Anion Gap 5 BUN 7 Creatinine 0.64 Estim Creat Clear Calc 85.77 Est GFR (MDRD) Af Amer 124 Est GFR (MDRD) Non-Af 102 BUN/Creatinine Ratio 10.9 Glucose 107 H Lactic Acid 1.1 Calcium 8.6 Total Bilirubin 0.40 AST 37 ALT 27 Alkaline Phosphatase 100 Total Protein 8.1 Albumin 4.0 Globulin 4.1 Albumin/Globulin Ratio 1.0 Radiography Chest X-Ray - ED: 1 View, Read by ED Physician (Single view portable chest x-ray interpreted by id at [id number].), Normal, Heart, Lungs, Mediastinum, Bony Structures and No Acute Disease Diagnostic Testing: Radiology Impression Chest X-Ray 01/14/21 21:35 IMPRESSION: No acute radiographic abnormalities. Electronically Signed: Quinn Valente MD at 21:52 EDT Tel , Service support , Discharge Plan Triage Chief Complaint: Fever ED Provider: Jabier Zamorano Dx/Rx/DC Orders Clinical Impression: COVID-19 Instructions: Coronavirus Disease 2019 (COVID-19): Caring for Yourself or Others Prescriptions: No Action omeprazole 20 mg capsule,delayed release(DR/EC) PO RF: 0 levothyroxine 88 mcg tablet PO RF: 0 mecobalamin (vitamin B12) 1,000 mcg tablet,disintegrating 1,000 mcg SUBLINGUAL DAILY RF: 0 sucralfate 1 gram tablet 1 g PO QACHS Qty: 120 RF: 0 omeprazole 20 mg capsule,delayed release(DR/EC) 20 mg PO DAILY Qty: 90 RF: 0 cholecalciferol (vitamin D3) 1,000 UNIT tablet 10,000 unit PO DAILY RF: 0 letrozole 2.5 MG tablet 2.5 mg PO DAILY RF: 0 metformin 500 MG tablet 500 mg PO BID RF: 0 Other Ambulatory Orders: COVID Outpatient Monoclonal Antibody Referral (Routine) Timeframe: 1 Day Facility: [facility] - Location: [facility] Ordered By: Dr. Jabier Zamorano Primary Care Provider: Dick Corrigan Referrals: Dick Corrigan MD [Primary Care Provider] - 10-14 Days suture removal Disposition Disposition: Home, Self Care
[2021-01-14 21:17] LABS: Absolute Lymphocyte Count 1.02 X10^3/uL (0.83-4.51); Absolute Neutrophil Count 1.2 X10^3/uL (2.0-7.7); Basophil# 0.01 X10^3/uL; Basophil% 0.4 % (0-1); Eosinophil# 0.01 X10^3/uL; Eosinophils% 0.4 % (0-5); Hematocrit 42.5 % (37-47); Lymphocyte # 1.02 X10^3/ul (0.83-4.51); Lymphocyte % 40.8 % (19-41); Mean Corp Hgb Conc 32.9 g/dL (32-36); Mean Corpuscular Hgb 29.3 pg (27.0-32.0); Mean Corpuscular Volume 88.9 fL (81-99); NRBC Flagged by Analyzer 0 % (0-5); Neutrophil # 1.16 X10^3/uL (2.7-7.7); Neutrophil % 46.4 % (47-70); Platelet Count 200 K/mm3 (150-450); RBC Distribution Width CV 12.6 % (11.6-14.6); RBC Distribution Width SD 41.6 fl (35.1-43.9); Red Blood Count 4.78 M/mm3 (4.2-5.4); White Blood Count 2.5 K/mm3 (4.4-11.0)
--- NOTE | 2021-01-14 21:35 | RAD_ITS ---
INDICATION: cough EXAMINATION/TECHNIQUE: X-RAY - XR Chest 1 View COMPARISON: 04/23/2017. FINDINGS: The lungs are clear. The cardiomediastinal silhouette is unremarkable. No pleural effusion or pneumothorax. No acute osseous abnormalities. RAD/Chest 1 View (Portable) IMPRESSION: No acute radiographic abnormalities. Electronically Signed: Quinn Valente MD at 21:52 EDT Tel , Service support ,
[2021-01-14 21:44] LABS: AST(SGOT) 37 U/L (15-37); Alanine Aminotransfer ALT/SGPT 27 U/L (13-56); Alkaline Phosphatase 100 U/L (45-117); Anion Gap 5 (5-15); BUN 7 mg/dL (7-18); BUN/Creat Ratio 10.9 RATIO (10-20); Calcium,Total 8.6 mg/dL (8.5-10.1); Chloride 102 mmol/L (98-107); Creatinine, Serum 0.64 mg/dL (0.55-1.02); EST Glomerular Filtration Rate 102 mL/min (>60); Est Glom Filt Rate - Afr Amer 124 mL/min (>60); Estimated Creatinine Clearance 85.77 ml/min; Globulin 4.1 g/dL (2.2-4.2); Glucose 107 mg/dL (74-106); Potassium 3.8 mmol/L (3.5-5.1); Protein, Total 8.1 g/dL (6.4-8.2); Sodium Level 134 mmol/L (136-145)
[2021-01-14 21:45] LABS: Lactic Acid 1.1 mmol/L (0.4-1.9)
[2021-01-14 22:15] VITALS: BP 132/77; PULSE 72; RESP 18; O2SAT 97
== END 2021-01-14 22:16 | disposition home or self-care (01) ==
PROVIDERS: Emergency Provider Emergency Medicine; PCP Family Medicine
DX: U07.1 COVID-19 (principal); E78.5 Hyperlipidemia, unspecified; I10 Essential (primary) hypertension; E66.9 Obesity, unspecified; Z79.899 Other long term (current) drug therapy
CPT/HCPCS: 71045; 80053; 83605; 85025; 96360; 99283; J7030; A4216

== ENCOUNTER 2021-01-15 11:38 | Outpatient (CLI) | payer BC, SELFPAY ==
[2021-01-15 12:01] VITALS: BP 133/73; PULSE 75; RESP 18; TEMP 37.8; O2SAT 100; BMI 29.2
[2021-01-15] MEDS: 0.9% Saline Lock 10 ML Syringe IV (12:01)
[2021-01-15 12:40] VITALS: BP 130/75; PULSE 75; RESP 16; TEMP 37.2; O2SAT 100
[2021-01-15 13:40] VITALS: BP 135/74; PULSE 112; PULSE 122; RESP 18; RESP 20; TEMP 36.7; O2SAT 85; O2SAT 87
--- NOTE | 2021-01-15 14:06 | NURSING ---
patient escorted to ED per instruction from Judith don due to symptoms experienced 1 hour post infusion
== END 2021-01-15 14:00 | disposition home or self-care (01) ==
LOC: ICUOUT 11:38 → MS3 11:39
PROVIDERS: PCP Family Medicine; Referring Provider Nurse Practitioner Adult Health; Visit Provider Nurse Practitioner Adult Health
DX: Z23 Encounter for immunization (principal); U07.1 COVID-19
CPT/HCPCS: J7050; M0245; A4216; Q0244

== ENCOUNTER 2021-01-15 13:53 | Emergency (ER) | payer BC, SELFPAY ==
[2021-01-15 13:54] VITALS: BP 155/71; PULSE 77; RESP 20; TEMP 37.4; O2SAT 100; BMI 29.2
--- NOTE | 2021-01-15 14:38 | RAD_ITS ---
STUDY: X-RAY CHEST REASON FOR EXAM: Female, 55 years old. covid TECHNIQUE: PA and lateral views of the chest. COMPARISON: Comparison is made with prior examination dated 01/14/2021. FINDINGS: The lungs are clear and expanded. Scattered calcified granulomas. There is no demonstrated pleural abnormality. Normal size heart. Normal mediastinum and bobby. Normal visualized pulmonary arteries. Normal visualized aortic arch and descending thoracic aorta. Normal visualized thoracic spine. Normal visualized ribs, clavicles, and shoulders. There is no demonstrated abnormality of the visualized soft tissue structures of the upper abdomen. RAD/Chest PA and Lateral IMPRESSION: No acute abnormality is seen. Electronically Signed: Jack Pierre MD at 15:02 EDT , Service support ,
--- NOTE | 2021-01-15 18:27 | ED.RN ---
pt was not willing to say and be seen by provider stating my is so sick at home. aware she does not want to stay she can leave without being seen.
== END 2021-01-15 15:22 | disposition left against medical advice (07) ==
LOC: ED 18:11
PROVIDERS: PCP Family Medicine
DX: U07.1 COVID-19 (principal)
CPT/HCPCS: 71046

== ENCOUNTER 2021-02-01 13:09 | Emergency (ER) | payer BC, SELFPAY ==
[2021-02-01 13:10] VITALS: BP 163/78; PULSE 91; RESP 16; TEMP 37.2; O2SAT 100; BMI 30.1
--- NOTE | 2021-02-01 13:34 | CT_ITS ---
STUDY: CTA CHEST REASON FOR EXAM: Female, 55 years old. Covid pneumonia, shortness of breath possible pulmonary embolism RADIATION DOSAGE (If Supplied By Facility): CTDIvol = ( 10.79 ) mGy, DLP = ( 482.82 ) mGycm TECHNIQUE: The examination was performed with the intravenous administration of IV 100mL [id number]-370. Post-processing of the angiographic images was performed, with multiplanar reformation and 3D reconstruction. Individualized dose optimization techniques were used for this CT. COMPARISON: 05 November 2014 FINDINGS: There is no acute or chronic pulmonary embolism. Aorta is of normal caliber. There are multifocal irregular pulmonary nodules, of mild distribution. There is no pneumothorax, pulmonary edema or pleural effusions. Mediastinal contents are normal. Osseous structures are intact. Abdominal structures are unremarkable. CT/CTA Chest W/WO Contrast IMPRESSION: 1. No pulmonary embolism 2. Acute Covid pneumonia, mild severity. Electronically Signed: Shankar Hyde MD at 14:57 EDT Tel , Service support ,
--- NOTE | 2021-02-01 13:36 | EDS_ITS ---
HPI History of Present Illness Chief Complaint: Other, Pain/Inj Narrative Narrative: Patient presents with right rib pain for the past 2 weeks, she has had Covid she is on day 25 of Covid. She is not short of breath but has persistent right sided chest wall pain. No fevers chills cough or congestion, she called her PCP who told her to come to the ER. [facility] Medical History (Updated 02/01/21 @ 14:[address] Dick Larsen MD) Atypical chest pain Dyslipidemia Fatty liver History of ovarian cancer Hypertension Mitral valve prolapse Home Medications levothyroxine 75 mcg PO DAILY 02/01/21 [History Last Taken Unknown] Allergy/AdvReac Type Severity Reaction Status Date / Time ampicillin Allergy Rash Verified 02/01/21 13:14 doxycycline Allergy Unknown Verified 02/01/21 13:14 Sulfa (Sulfonamide Allergy Unknown Verified 02/01/21 13:14 Antibiotics) tetracycline [Tetracycline] Allergy Unknown Verified 02/01/21 13:14 erythromycin base AdvReac Other Verified 02/01/21 13:14 [Erythromycin Base] Family History Mother Diabetes Heart disease Hypertension Rheumatoid arthritis Surgical History History of section History of cholecystectomy History of colonoscopy (~2012) History of tonsillectomy History of total hysterectomy Social History household members: spouse Smoking Status: Never smoker alcohol intake: current alcohol intake frequency: other substance use type: does not use ROS ROS ED ROS Narrative Past medical history: Reviewed Medications: Reviewed Social history: Noncontributory Review of systems: All systems negative except as indicated General: No fever Eyes: No visual changes ENT: No upper airway congestion, normal voice Neck: No neck pain Cardiovascular: No palpitations. Right-sided chest wall pain as in HPI Respiratory: No shortness of breath or cough Gastrointestinal: No abdominal pain, nausea vomiting or diarrhea Genitourinary: No dysuria Musculoskeletal: Denies myalgias no difficulty with ambulation Skin: No rash Neurological: No memory loss, confusion or any focal weakness Psych: No recent behavioral changes Hematologic: No easy bleeding or easy bruising EXAM Physical Exam Narrative Exam Narrative: Physical exam General: Well nourished, Well developed, No Acute Distress Head: Normocephalic, Atraumatic Eyes: Conjunctiva not pale ENT: Moist mucous membranes Neck: Supple, Nontender, No lymphadenopathy Cardiovascular: Regular rate, Regular rhythm Chest wall: There is chest wall tenderness both anteriorly and mid axillary line in the lower rib region. No obvious rash in that region. Respiratory: No distress, CTA bilaterally Abdomen: Soft, Nontender, Nondistended Back: Nontender, Normal Inspection. Negative for: CVA tenderness Extremities: Nontender, No edema Skin: Normal color, No rash Neurological: Alert, Normal Strength, Normal Sensation Psychological: Normal affect Const Vital Signs: 02/01/21 13:10 02/01/21 13:21 Temperature 98.9 F Temperature Source Temporal Pulse Rate 91 Respiratory Rate 16 Respiratory Effort Normal Respiratory Pattern Normal Blood Pressure 163/78 H Blood Pressure Mean 106 Pulse Ox 100 Oxygen Delivery Method Room Air MDM MDM MDM Narrative Medical decision making narrative: Patient has reproducible right chest wall pain, I am waiting for the official radiology read but the CT does not show any central PEs. Assuming radiology agrees, I will discharge in stable condition. Lab Data Labs: Laboratory Results - last 24 hr 02/01/21 02/01/21 13:49 13:49 WBC 7.2 RBC 4.20 Hgb 12.5 Hct 37.6 MCV 89.5 MCH 29.8 MCHC 33.2 RDW Std Deviation 40.9 RDW Coeff of Nestor 12.6 Plt Count 289 MPV 7.8 Immature Gran % (Auto) 0.700 Neut % (Auto) 70.0 Lymph % (Auto) 23.2 Gilliam % (Auto) 5.0 Eos % (Auto) 0.8 Baso % (Auto) 0.3 Absolute Neuts (auto) 5.0 Absolute Lymphs (auto) 1.66 Nucleated RBC % 0 Sodium 138 Potassium 3.7 Chloride 103 Carbon Dioxide 29.0 Anion Gap 6 BUN 9 Creatinine 0.63 Estim Creat Clear Calc 87.13 Est GFR (MDRD) Af Amer 127 Est GFR (MDRD) Non-Af 105 BUN/Creatinine Ratio 14.4 Glucose 121 H Calcium 8.6 Total Bilirubin 0.40 AST 16 ALT 22 Alkaline Phosphatase 96 Total Protein 6.8 Albumin 3.2 Globulin 3.6 Albumin/Globulin Ratio 0.9 Discharge Plan Triage Chief Complaint: Other, Pain/Inj ED Provider: Dick Larsen Dx/Rx/DC Orders Clinical Impression: Acute chest wall pain Instructions: ED Chest Wall Pain, Costochondritis Prescriptions: No Action levothyroxine 75 mcg tablet 75 mcg PO DAILY RF: 0 Primary Care Provider: Dick Corrigan Referrals: Dick Corrigan MD [Primary Care Provider] - Disposition Disposition: Home, Self Care
[2021-02-01] MEDS: Ketorolac 15 MG/ML Vial IV (13:49)
[2021-02-01 14:08] LABS: Absolute Lymphocyte Count 1.66 X10^3/uL (0.83-4.51); Basophil# 0.02 X10^3/uL; Basophil% 0.3 % (0-1); Eosinophil# 0.06 X10^3/uL; Eosinophils% 0.8 % (0-5); Hematocrit 37.6 % (37-47); Hemoglobin 12.5 g/dL (12.0-15.0); Lymphocyte # 1.66 X10^3/ul (0.83-4.51); Lymphocyte % 23.2 % (19-41); Mean Corp Hgb Conc 33.2 g/dL (32-36); Mean Corpuscular Hgb 29.8 pg (27.0-32.0); Mean Corpuscular Volume 89.5 fL (81-99); Mean Platelet Vol. 7.8 fl (6.2-12.0); Monocyte# 0.36 X10^3/uL; NRBC Flagged by Analyzer 0 % (0-5); Neutrophil # 5.02 X10^3/uL (2.7-7.7); Platelet Count 289 K/mm3 (150-450); RBC Distribution Width CV 12.6 % (11.6-14.6); RBC Distribution Width SD 40.9 fl (35.1-43.9); White Blood Count 7.2 K/mm3 (4.4-11.0)
[2021-02-01 14:25] LABS: ALB/GLOB Ratio 0.9 RATIO (0.9-2.4); AST(SGOT) 16 U/L (15-37); Alanine Aminotransfer ALT/SGPT 22 U/L (13-56); Albumin, Serum 3.2 g/dL (3.2-5.0); Alkaline Phosphatase 96 U/L (45-117); Anion Gap 6 (5-15); BUN 9 mg/dL (7-18); BUN/Creat Ratio 14.4 RATIO (10-20); Calcium,Total 8.6 mg/dL (8.5-10.1); Chloride 103 mmol/L (98-107); Creatinine, Serum 0.63 mg/dL (0.55-1.02); EST Glomerular Filtration Rate 105 mL/min (>60); Est Glom Filt Rate - Afr Amer 127 mL/min (>60); Estimated Creatinine Clearance 87.13 ml/min; Globulin 3.6 g/dL (2.2-4.2); Glucose 121 mg/dL (74-106); Potassium 3.7 mmol/L (3.5-5.1); Protein, Total 6.8 g/dL (6.4-8.2); Sodium Level 138 mmol/L (136-145)
== END 2021-02-01 15:48 | disposition home or self-care (01) ==
PROVIDERS: Emergency Provider Emergency Medicine; PCP Family Medicine
DX: R07.89 Other chest pain (principal); E78.5 Hyperlipidemia, unspecified; I10 Essential (primary) hypertension
CPT/HCPCS: 71275; 80053; 85025; 96374; 99281; 99282; Q9967; A4216

== ENCOUNTER 2021-10-25 11:10 | Emergency (ER) | payer BC, SELFPAY ==
[2021-10-25 11:11] VITALS: BP 193/83; PULSE 99; RESP 18; TEMP 36.6; O2SAT 98; BMI 32.7
--- NOTE | 2021-10-25 11:27 | EKG12_ITS ---
Test Reason : Blood Pressure : / mmHG Vent. Rate : 078 BPM Atrial Rate : 078 BPM P-R Int : 174 ms QRS Dur : 086 ms QT Int : 366 ms P-R-T Axes : 068 018 046 degrees QTc Int : 417 ms Somatic/Motion Artifact Normal sinus rhythm Low voltage QRS Poor R wave progression Confirmed by ABBIE BURGESS, DARLING ([id number]), publishing editor FELIX EPPS ([id number]) on 10/27/2021 8:13:44 AM Referred By: Confirmed By:DARLING LEIVA MD
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
[2021-10-25 11:42] VITALS: BP 165/92
--- NOTE | 2021-10-25 11:45 | RAD_ITS ---
STUDY: X-RAY CHEST REASON FOR EXAM: Female, 56 years old. HYPERTENSION, DIZZINESS, FEELING NOT RIGHT TECHNIQUE: Single AP portable view of the chest. COMPARISON: January 15, 2021 FINDINGS: The lungs are clear and expanded. There is no demonstrated pleural abnormality. Normal size heart. Normal mediastinum and bobby. Normal visualized pulmonary arteries. Normal visualized aortic arch and descending thoracic aorta. Normal visualized thoracic spine. Normal visualized ribs, clavicles, and shoulders. There is no demonstrated abnormality of the visualized soft tissue structures of the upper abdomen. RAD/Chest 1 View (Portable) IMPRESSION: Normal x-ray examination of the chest. Electronically Signed: Lg Cabral MD at 12:18 EDT ,
[2021-10-25 11:46] LABS: Absolute Lymphocyte Count 1.68 X10^3/uL (0.83-4.51); Absolute Neutrophil Count 3.3 X10^3/uL (2.0-7.7); Basophil# 0.02 X10^3/uL; Basophil% 0.4 % (0-1); Eosinophil# 0.13 X10^3/uL; Eosinophils% 2.4 % (0-5); Hematocrit 40.4 % (37-47); Hemoglobin 13.7 g/dL (12.0-15.0); Lymphocyte # 1.68 X10^3/ul (0.83-4.51); Lymphocyte % 30.9 % (19-41); Mean Corp Hgb Conc 33.9 g/dL (32-36); Mean Corpuscular Hgb 29.6 pg (27.0-32.0); Mean Corpuscular Volume 87.3 fL (81-99); Monocyte# 0.31 X10^3/uL; Monocyte% 5.7 % (0-10); NRBC Flagged by Analyzer 0 % (0-5); Neutrophil # 3.25 X10^3/uL (2.7-7.7); Neutrophil % 59.9 % (47-70); Platelet Count 214 K/mm3 (150-450); RBC Distribution Width CV 12.8 % (11.6-14.6); RBC Distribution Width SD 40.9 fl (35.1-43.9); Red Blood Count 4.63 M/mm3 (4.2-5.4); White Blood Count 5.4 K/mm3 (4.4-11.0)
[2021-10-25 12:04] LABS: ALB/GLOB Ratio 1.1 RATIO (0.9-2.4); AST(SGOT) 18 U/L (15-37); Alanine Aminotransfer ALT/SGPT 24 U/L (13-56); Albumin, Serum 3.8 g/dL (3.2-5.0); Alkaline Phosphatase 88 U/L (45-117); Anion Gap 10 (5-15); BUN 8 mg/dL (7-18); Calcium,Total 8.9 mg/dL (8.5-10.1); Chloride 103 mmol/L (98-107); Creatinine, Serum 0.72 mg/dL (0.55-1.02); EST Glomerular Filtration Rate 88 mL/min (>60); Est Glom Filt Rate - Afr Amer 107 mL/min (>60); Estimated Creatinine Clearance 75.34 ml/min; Globulin 3.5 g/dL (2.2-4.2); Glucose 122 mg/dL (74-106); Potassium 3.7 mmol/L (3.5-5.1); Protein, Total 7.3 g/dL (6.4-8.2); Sodium Level 138 mmol/L (136-145); Troponin-I HS 12 pg/mL (3.0-54.0)
[2021-10-25 12:21] VITALS: BP 163/93; PULSE 76
== END 2021-10-25 12:22 | disposition home or self-care (01) ==
PROVIDERS: Emergency Provider Emergency Medicine; PCP Family Medicine; Visit Provider Emergency Medicine
DX: I10 Essential (primary) hypertension (principal)
CPT/HCPCS: 71045; 80053; 84484; 85025; 93005; 99284; A4216

== ENCOUNTER → 2021-11-03 | Outpatient (CLI) | payer BC, SELFPAY ==
[2021-11-03 11:12] LABS: Anion Gap 6 (5-15); BUN 10 mg/dL (7-18); BUN/Creat Ratio 15.2 RATIO (10-20); Calcium,Total 8.8 mg/dL (8.5-10.1); Chloride 103 mmol/L (98-107); Cholesterol 234 mg/dL (200); Creatinine, Serum 0.66 mg/dL (0.55-1.02); EST Glomerular Filtration Rate 99 mL/min (>60); Est Glom Filt Rate - Afr Amer 119 mL/min (>60); Free T3 2.5 pg/mL (2.18-3.98); Glucose 120 mg/dL (74-106); High Density Lipoprotein 45 mg/dL; Potassium 4.1 mmol/L (3.5-5.1); Sodium Level 136 mmol/L (136-145); T4 Free Direct 1.27 ng/dL (0.76-1.46); Thyroid Stim Hormone (TSH) 0.98 uIU/mL (0.358-3.74); Triglycerides 178 mg/dL; Very Low Density Lipoprotein 36 mg/dL (5-40)
== END | disposition home or self-care (01) ==
LOC: MFPLAB 09:18
PROVIDERS: PCP Family Medicine; Referring Provider Family Medicine; Visit Provider Family Medicine
DX: I10 Essential (primary) hypertension (principal); E03.9 Hypothyroidism, unspecified
CPT/HCPCS: 36415; 80048; 80061; 84439; 84443; 84481

== ENCOUNTER → 2021-12-29 | Outpatient (CLI) | payer BC, SELFPAY ==
--- NOTE | 2021-12-29 07:37 | ECHOD_ITS ---
Reason For Study: HTN Procedure This was a 2D Doppler, Color Flow transthoracic echocardiogram. Exam performed in department. Left Ventricle Normal LV size. Mild concentric left ventricular hypertrophy. Left ventricular systolic function is normal. The estimated ejection fraction is 60 %. Stage 1 diastolic dysfunction. No regional wall motion abnormalities noted. Right Ventricle Normal RV size. Normal systolic function. Atria Normal left atrium. Normal right atrium. Mitral Valve Normal mitral valve. Tricuspid Valve Normal tricuspid valve. Mild (1+) tricuspid valve insufficiency. Pulmonary artery systolic pressure is 25 mmHg. Aortic Valve Normal aortic valve. Trisinus/trileaflet aortic valve. Pulmonic Valve Normal pulmonic valve. Great Vessels Normal aortic root. The pulmonary artery is normal size. Normal inferior vena cava. Pericardium/Pleural No pericardial effusion. MMode/2D Measurements & Calculations LVIDd: 4.2 cm IVSd: 1.2 cm Ao root diam: 2.7 cm LVIDs: 2.7 cm LVPWd: 1.3 cm RVDd: 3.3 cm FS: 36.7 % LAV(MOD-bp): 57.2 ml LVAd ap4: 23.7 cm2 SV(MOD-sp4): 44.5 ml LAV(MOD-bp) Indexed: 30.5 ml/m2 LVLd ap4: 7.0 cm LAV(MOD-sp2): 54.0 ml EDV(MOD-sp4): 64.4 ml LAV(MOD-sp4): 58.9 ml EDV(sp4-el): 67.7 ml LVAs ap4: 11.8 cm2 LVLs ap4: 6.0 cm ESV(MOD-sp4): 19.9 ml ESV(sp4-el): 19.7 ml EF(MOD-sp4): 69.0 % EF(sp4-el): 70.9 % SV(sp4-el): 48.0 ml LA A4 area: 20.9 cm2 LA dimension(2D): 4.1 cm RA A4 area: 10.6 cm2 Time Measurements MV dec time: 0.19 sec Doppler Measurements & Calculations MV E max petey: 64.4 cm/sec Lat Peak E' Petey: 8.9 cm/sec Med Peak E' Petey: 5.5 cm/sec MV A max petey: 74.0 cm/sec E/E' lat: 7.3 E/E' med: 11.7 MV E/A: 0.87 MV V2 max: 84.7 cm/sec Ao V2 max: 138.2 cm/sec MV max P.9 mmHg MV dec slope: 337.2 cm/sec2 Ao max P.7 mmHg MV V2 mean: 55.8 cm/sec Ao V2 mean: 89.5 cm/sec MV mean P.4 mmHg Ao mean P.8 mmHg MV V2 VTI: 27.9 cm Ao V2 VTI: 31.7 cm LV V1 max: 114.8 cm/sec PA V2 max: 103.4 cm/sec TR max petey: 234.7 cm/sec LV V1 max P.3 mmHg PA V2 mean: 72.2 cm/sec TR max P.0 mmHg LV V1 mean P.8 mmHg LV V1 mean: 77.4 cm/sec LV V1 VTI: 26.4 cm ECHO/Echo Complete Interpretation Summary Normal LV size. Left ventricular systolic function is normal. The estimated ejection fraction is 60 %. Stage 1 diastolic dysfunction. Mild concentric left ventricular hypertrophy. Ordering Physician: Mark Kyle Referring Physician: Mark Kyle Performed By: Ellen Rosenberg RCS
== END | disposition home or self-care (01) ==
PROVIDERS: PCP Family Medicine; Referring Provider Internal Medicine Cardiovascular Disease; Visit Provider Internal Medicine Cardiovascular Disease
DX: I10 Essential (primary) hypertension (principal)
CPT/HCPCS: 93306

== ENCOUNTER → 2022-04-11 | Outpatient (CLI) | payer BC, SELFPAY ==
[2022-04-11 10:18] LABS: Cholesterol 227 mg/dL (200); High Density Lipoprotein 46 mg/dL; Triglycerides 119 mg/dL; Very Low Density Lipoprotein 24 mg/dL (5-40)
== END | disposition home or self-care (01) ==
PROVIDERS: PCP Family Medicine; Visit Provider Family Medicine
DX: E78.5 Hyperlipidemia, unspecified (principal)
CPT/HCPCS: 36415; 80061

== ENCOUNTER → 2022-04-13 | Outpatient (CLI) | payer BC, SELFPAY ==
[2022-04-13 10:54] LABS: Anion Gap 8 (5-15); BUN 7 mg/dL (7-18); BUN/Creat Ratio 10.2 RATIO (10-20); Calcium,Total 9.1 mg/dL (8.5-10.1); Chloride 105 mmol/L (98-107); Creatinine, Serum 0.69 mg/dL (0.55-1.02); EST Glomerular Filtration Rate 94 mL/min (>60); Est Glom Filt Rate - Afr Amer 113 mL/min (>60); Free T3 2.6 pg/mL (2.18-3.98); Glucose 102 mg/dL (74-106); Potassium 4.1 mmol/L (3.5-5.1); Sodium Level 140 mmol/L (136-145); T4 Free Direct 1.54 ng/dL (0.76-1.46); Thyroid Stim Hormone (TSH) 0.77 uIU/mL (0.358-3.74)
== END | disposition home or self-care (01) ==
LOC: MFPLAB 08:27
PROVIDERS: PCP Family Medicine; Referring Provider Family Medicine; Visit Provider Family Medicine
DX: I10 Essential (primary) hypertension (principal); E03.9 Hypothyroidism, unspecified
CPT/HCPCS: 36415; 80048; 84439; 84443; 84481

== ENCOUNTER → 2022-12-01 | Outpatient (CLI) | payer BC, SELFPAY ==
[2022-12-01 17:55] LABS: Absolute Lymphocyte Count 1.64 X10^3/uL (0.83-4.51); Absolute Neutrophil Count 3.1 X10^3/uL (2.0-7.7); Basophil# 0.02 X10^3/uL; Basophil% 0.4 % (0-1); Eosinophil# 0.09 X10^3/uL; Eosinophils% 1.7 % (0-5); Hematocrit 40.5 % (37-47); Hemoglobin 13.5 g/dL (12.0-15.0); Lymphocyte # 1.64 X10^3/ul (0.83-4.51); Lymphocyte % 31.7 % (19-41); Mean Corp Hgb Conc 33.3 g/dL (32-36); Mean Corpuscular Hgb 30.5 pg (27.0-32.0); Mean Corpuscular Volume 91.6 fL (81-99); Mean Platelet Vol. 8.4 fl (6.2-12.0); Monocyte# 0.35 X10^3/uL; Monocyte% 6.8 % (0-10); NRBC Flagged by Analyzer 0 % (0-5); Neutrophil # 3.07 X10^3/uL (2.7-7.7); Neutrophil % 59.2 % (47-70); Platelet Count 238 K/mm3 (150-450); RBC Distribution Width CV 12.6 % (11.6-14.6); RBC Distribution Width SD 42.2 fl (35.1-43.9); Red Blood Count 4.42 M/mm3 (4.2-5.4); White Blood Count 5.2 K/mm3 (4.4-11.0)
[2022-12-01 18:08] LABS: Anion Gap 6 (5-15); BUN 9 mg/dL (7-18); Calcium,Total 8.8 mg/dL (8.5-10.1); Chloride 106 mmol/L (98-107); Creatinine, Serum 0.69 mg/dL (0.55-1.02); EST Glomerular Filtration Rate 93 mL/min (>60); Est Glom Filt Rate - Afr Amer 112 mL/min (>60); Glucose 125 mg/dL (74-106); Potassium 3.8 mmol/L (3.5-5.1); Sodium Level 138 mmol/L (136-145)
[2022-12-01 18:15] LABS: D-Dimer Quantitative (DVT/PE) < 0.27 FEU/ug/m (0.27-0.49)
== END | disposition home or self-care (01) ==
PROVIDERS: PCP Family Medicine; Visit Provider Family Medicine
DX: R07.89 Other chest pain (principal)
CPT/HCPCS: 36415; 80048; 85025; 85379

== ENCOUNTER → 2022-12-20 | Outpatient (CLI) | payer BC, SELFPAY ==
--- NOTE | 2022-12-20 08:34 | BI_ITS ---
MAMMOGRAPHY - BILATERAL SCREENING REASON FOR EXAM: Female, 57 years old. Routine annual screening examination. PERTINENT HISTORY: Non-contributory. Remote left stereotactic breast biopsy. TECHNIQUE: Digital bilateral breast kimberly (3D mammographic acquisition) in the CC and MLO projections. 2-D mediolateral oblique (MLO) and craniocaudad (CC) views of both breasts were obtained. CAD: Full Field Digital Mammography with Computer Added Detection was performed. COMPARISON: Comparison is made with prior study dated January 23, 2019. FINDINGS: Breast Composition: There are scattered areas of fibroglandular density. There are no dominant masses or suspicious calcifications. A tissue clip marker is seen in the inferior slightly medial central aspect of the left breast. Stable small benign-appearing bilateral axillary lymph nodes. No other significant abnormalities are identified. There has been no significant change since the prior study. BI/SCRN MAMM (CAD)W/KIMBERLY BILAT IMPRESSION: Stable bilateral screening mammogram. Yearly follow-up mammogram recommended. (A) ASSESSMENT CATEGORY: BIRADS Category 2: Benign. A letter regarding these results will be sent to the patient by the facility within 30 days. Approximately 10% of breast cancers are not detected by mammography. A normal mammogram should not delay biopsy of a clinically suspicious abnormality. [id number] Electronically Signed: Jack Pierre MD at 8:19 EDT ,
== END | disposition home or self-care (01) ==
PROVIDERS: PCP Family Medicine; Referring Provider Family Medicine; Visit Provider Family Medicine
DX: Z12.31 Encounter for screening mammogram for malignant neoplasm of breast (principal)
CPT/HCPCS: 77063; 77067

== ENCOUNTER → 2023-06-28 | Outpatient (CLI) | payer BC, SELFPAY ==
--- OUTSIDE RECORDS SUMMARY | 2023-06-28 08:34 | XMS RPT_ITS | CCD ---
Author Name Unknown Address [address] [facility] [address] [place] [address] Organization [facility] Care Team Providers Care Winder Tender Name Role Phone Update Needed Unavailable Unavailable Yury BURGESS, Floyd Sanderson Unavailable Meenu BURGESS, Dick Fermin Primary Care Provider Meenu BURGESS, Dick Fermin Primary Care Provider Meenu BURGESS, Dick Fermin Primary Care Provider [phone] Meenu BURGESS, Dick May Primary Care Provider Meenu BURGESS, Dick May Primary Care Provider [phone] DICK RUIZ Primary Care Unavailable LITA BRYANT Referring Unavailabl AVELINO Hernandez Referring Unavailable DICK RUIZ Primary Care Unavailable LAMBRINADE ROSA MARIA Referring Unavailable DICK RUIZ Primary Care Unavailable LITA BRYANT Referring Unavailabl e DICK RUIZ Primary Care Unavailable DICK RUIZ Primary Care Unavailable AVELINO PRO Attending Unavailable DICK RUIZ Primary Care Unavailable AVELINO PRO Attending Unavailable AVELINO PRO Attending Unavailable DICK RUIZ Primary Care Unavailable Allergies Allergy Classification Reported Allergen(s) Allergy Type Date of Onset Reaction(s) Facility (1 source) Ampicillin Drug Allergy 0 rash [facility] Work Phone: (14 sources) Doxycycline; Translations: [DOXYCYCLINE HYCLATE] Drug Allergy 0 Unknown [facility] Work Phone: (14 sources) Erythromycin; Translations: [ERYTHROMYCIN] Drug Allergy 0 GI Upset [facility] Work Phone: (1 source) Kingdom Animalia; Translations: [ANIMALS] allergy to substance 0 [facility] Work Phone: (1 source) Latex; Translations: [LATEX] allergy to substance 0 rash [facility] Work Phone: (1 source) Mold Extract; Translations: [MOLD] Drug Allergy 0 [facility] Work Phone: (1 source) Sulfacetamide Drug Allergy 0 unknown reaction per patient [facility] Work Phone: (3 sources) Tetracycline; Translations: [TETRACYCLINE] Drug Allergy 0 nausea and vomiting [facility] Work Phone: (1 source) PLANT POLLENS; Translations: [PLANT POLLENS] allergy to substance 0 hay fever [facility] Work Phone: (13 sources) Amoxicillin; Translations: [AMOXICILLIN] Drug Allergy 0 Rash, Anaphylaxis [facility] (13 sources) Sulfonamides (Antibiotic); Translations: [SULFA (SULFONAMIDE ANTIBIOTICS)] Drug Allergy 0 Rash [facility] (11 sources) Tetracycline Drug Allergy 0 Unknown [facility] Medications Completed/Discontinued Medications Medication Drug Class(es) Dates Sig (Normalized) Sig (Original) cholecalciferol 0.25 mg oral capsule (11 sources) Vitamin D Cholecalciferol, Vitamin D3, 10,000 unit cap Take by mouth. 0 Active Problems Active Problems Problem Classification Problem Date Documented Da te Episodic/Chronic Anxiety disorders (1 source) Anxiety disorder due to a general medical condition; Translations: [Generalized anxiety disorder] Chronic Cancer of ovary (20 sources) Malignant epithelial neoplasm; Translations: [Malignant neoplasm of unspecified ovary] Onset: 09-03-2009 09-03-2009 Chronic Heart valve disorders (11 sources) Mitral valve prolapse; Translations: [Nonrheumatic mitral (valve) prolapse] Onset: 06-29-2009 06-29-2009 Chronic Other gastrointestinal disorders (1 source) Dysphagia; Translations: [Dysphagia, unspecified] Episodic Other nervous system disorders (1 source) Carpal tunnel syndrome, right upper limb; Translations: [Carpal tunnel syndrome, right upper limb] Onset: 04-03-2020 04-03-2020 Chronic Other nervous system disorders (1 source) Carpal tunnel syndrome, left upper limb; Translations: [Carpal tunnel syndrome, left upper limb] Onset: 04-03-2020 04-03-2020 Chronic Past or Other Problems Problem Classification Problem Date Documented Da te Episodic/Chronic Unclassified (1 source) Problem Results Test Name Value Interpretation Reference Range Facil ity Vital Signs Date Time Vital Sign Value Performing Clinician Facility 07-12-2022 09:15-0400 Body height 162.6 cm Avelino Pro MD Work Phone: [facility] 07-12-2022 09:15-0400 Body temperature 98.01 [degF] Avelino Pro MD Work Phone: [facility] 07-12-2022 09:15-0400 Body weight 89.18 kg Avelino Pro MD Work Phone: [facility] 07-12-2022 09:15-0400 Diastolic blood pressure 82 mm[Hg] Avelino Pro MD Work Phone: [facility] 07-12-2022 09:15-0400 Heart rate 74 /min Avelino Pro MD Work Phone: [facility] 07-12-2022 09:15-0400 SaO2% (BldA) [Mass fraction] 100 % Avelino Pro MD Work Phone: [facility] 07-12-2022 09:15-0400 Systolic blood pressure 144 mm[Hg] Avelino Pro MD Work Phone: [facility] 12-28-2021 08:49-0400 Body height 162.6 cm Avelino Pro MD Work Phone: [facility] 12-28-2021 08:49-0400 Body temperature 98.01 [degF] Avelino Pro MD Work Phone: [facility] 12-28-2021 08:49-0400 Body weight 83.28 kg Avelino Pro MD Work Phone: [facility] 12-28-2021 08:49-0400 Diastolic blood pressure 86 mm[Hg] Avelino Pro MD Work Phone: [facility] 12-28-2021 08:49-0400 Heart rate 71 /min Avelino Pro MD Work Phone: [facility] 12-28-2021 08:49-0400 SaO2% (BldA) [Mass fraction] 100 % Avelino Pro MD Work Phone: [facility] 12-28-2021 08:49-0400 Systolic blood pressure 161 mm[Hg] Avelino Pro MD Work Phone: [facility] 09-28-2021 08:45-0400 Body height 162.6 cm Avelino Pro MD Work Phone: [facility] 09-28-2021 08:45-0400 Body temperature 97.2 [degF] Avelino Pro MD Work Phone: [facility] 09-28-2021 08:45-0400 Body weight 83.92 kg Avelino Pro MD Work Phone: [facility] 09-28-2021 08:45-0400 Diastolic blood pressure 88 mm[Hg] Avelino Pro MD Work Phone: [facility] 09-28-2021 08:45-0400 Heart rate 83 /min Avelino Pro MD Work Phone: [facility] 09-28-2021 08:45-0400 SaO2% (BldA) [Mass fraction] 99 % Avelino Pro MD Work Phone: [facility] 09-28-2021 08:45-0400 Systolic blood pressure 162 mm[Hg] Avelino Pro MD Work Phone: [facility] NEGATED: Highlighted [id number] 08:44-0500 BMI (Body Mass Index) 31.26 kg/m2 Kaia Roberts RN [facility] Work Phone: NEGATED: Highlighted [id number] 08:44-0500 Body weight 87.54 kg Kaia Roberts RN [facility] Work Phone: NEGATED: Highlighted [id number] 08:44-0500 Body weight 88 kg Kaia Roberts RN [facility] Work Phone: NEGATED: Highlighted [id number] 08:44-0500 Height 167.64 cm Kaia Roberts RN [facility] Work Phone: NEGATED: Highlighted [id number] 08:44-0500 Height 168 cm Kaia Roberts RN [facility] Work Phone: Encounters Encounter Date Encounter Type Care Provider Facility Start: 01-17-2023 End: 01-17-2023 ambulatory AVELINO PRO Facility:[facility] Start: 01-03-2023 Telephone encounter Avelino almodovar MD Work Phone: [facility] Gynecology Oncology Procedures Date Procedure Procedure Detail Performing Clinician Start: 07-12-2022 Follow-up visit Follow Up AVELINO PRO Start: 09-22-2021 Ct abdomen & pelvis w/contrast material Lita Bryant APRN.INSURANCE HEALTHCARE REPRESENTATIVE Work Phone: Start: 04-03-2020 End: 04-03-2020 Blood pressure screening not performed - reason not given Floyd Cotton MD Work Phone: Start: 04-03-2020 End: 04-03-2020 BMI documented as above normal parameters - follow-up documented Floyd Cotton MD Work Phone: Start: 04-03-2020 End: 04-03-2020 Documentation of current medications Floyd Cotton MD Work Phone: Start: 04-03-2020 End: 04-03-2020 Pain assessment documented as positive - follow-up documented Floyd Cotton MD Work Phone: Start: 04-03-2020 End: 04-03-2020 Tobacco non-user Floyd Cotton MD Work Phone: Start: 02-10-2020 Adult depression screening assessment Avelino Pro MD Work Phone: Start: 01-23-2018 Lipid 1996 panel - S bob or Plasma Avelino Pro MD Work Phone: Start: 11-08-2016 Mammography Avelino juarez MD Work Phone: Start: 09-20-2012 Colonoscopy Avelino juarez MD Work Phone: NEGATED: Highlighted rowStart: 04-03-2020 End: 04-03-2020 Documentation of current medications Kaia Roberts RN Plan of Treatment Date Care Activity Detail Author Start: 01-23-2023 Lipid 1996 panel - S bob or Plasma Lipid Screening [facility] Start: 01-23-2023 LIPID SCREEN LIPID SCREEN [facility] Start: 01-03-2023 End: 03-05-2023 ANTI MULLERIAN HORMONE [facility] Work Phone: Immunizations Immunization Date Immunization Notes Care Provider Keren escobar 02-17-2005 influenza virus vaccine, unspecified formulation Avelino Por MD Work Phone: [facility] Work Phone: Payers Date Payer Category Payer Unknown YAJAIRA HYLTON PPO [id number] 2021-Present [phone] [id number] [place] [address] PPO [id number] 2021 Unknown YAJAIRA HYLTON PPO [id number] 2021-Present [phone] [address] [place] [address] PPO [id number] 2021 Unknown [id number] Social History Date Type Detail Facility Assertion Unknown if ever smoked [id number] Roberts Work Phone: Start: 04-03-2020 End: 04-03-2020 Assertion Unknown if ever smoked [facility] Work Phone: Start: 12-28-2021 Tobacco smoking status NHIS Never smoked tobacco [facility] Start: 04-06-2021 End: 07-12-2022 Alcohol intake Current non-drinker of alcohol (finding) [facility] Start: 04-19-2016 History SDOH Alcohol Comment none [facility] Start: 1965 Sex Assigned At Female [facility] Start: 09-18-2021 End: 12-28-2021 Exposure to SARS-CoV-2 (event) Not sure [facility] Start: 12-28-2021 Tobacco use and exposure Smokeless tobacco non-user [facility] Start: 05-20-2022 End: 07-12-2022 History of Social function [facility] Start: 05-20-2022 End: 07-12-2022 Tobacco use panel [facility] Adult Depression Screening Assessment 4 [facility] Start: 02-10-2020 Gender identity Identifies as female gender (finding) [facility] Start: 02-10-2020 Sexual orientation Heterosexual (finding) [facility] Functional Status Date Assessment Result Facility NEGATED: Highlighted row Functional performance Functional status health issues are not documented Disease [id number] Work Phone: Mental Status Date Assessment Result Facility NEGATED: Highlighted row Cognitive function [Interpretation] Cognitive status health issues are not documented Disease [facility] Work Phone: Clinical Notes 09-21-2021 to 01-17-2023 Telephone Encounter - Lita Bryant, EITAN.INSURANCE HEALTHCARE REPRESENTATIVE - 01/03/2023 9:13 AM EDTTelephone Encounter - aDyna SutherlandDENNY - 01/03/2023 9:05 AM Tish Pro MD - 07/12/2022 9:30 AM EDT Note Date & Type Note Facility 01-17-2023 Note HNO ID: [id number] Author: Avelino Pro MD Service: ? Author Type: Physician Type: Progress Notes Filed: 01/17/2023 4:00 PM Note Text: Gynecologic Oncology [facility] Follow up visit Date of service: 01/17/2023 PROBLEM/CC: Ayah Goode presents for 6 month surveillance visit of granulosa cell tumor of the ovary. HPI: Ms. 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 Recurred in 2014, treated surgically and has been on Letrozole daily since. No clinical evidence of recurrence cancer since that time. Last Office Visit: 07/12/2022 ONCOLOGY HISTORY: 55-year-old female who was diagnosed with a stage [...] taken to the operating room at the [facility] on September 01, 2014. She underwent resection of a recurrent granulosa cell tumor to no visible disease. When seen for a postoperative assessment by her gynecologic oncologist, discussion of adjuvant therapy included participation in GOG trial 264, randomizing patients between bleomycin, etoposide, and cis-port gamble versus paclitaxel and carboplatin. She was not [...] abnormalities suggesting possible benefit of drugs including port gamble, taxanes, gemcitabine, Doxil, and hormonal agents including [...] identical to values obtained in August 2017 Inhibin B, estradiol, and anti-mullerian hormone on August 22, 2018 are normal September 06, 2018, advised to decrease dose of letrozole to 1.25 mg per day, feeling better after 3 weeks at this lower dose, call office and we will repeat her laboratory studies in 3 months. If she increases her dose back to 2.5 mg because she is not feeling any better, or she is worried about the lower dose being less efficacious, plan will be repeating laboratory studies at her next follow-up in 6 months. 02/26/19: Estradiol <12 AMH <0.015 Inhibin B <10 Diagnosed with hypothyroidism. Started levothyroxine and suicidal ideations ceased. November 14, 2019: Estradiol 22 Inhibing B <10 AMH <0.015 February 24, 2020 Estradiol <19 March 30, 2020: Estradiol <19 Inhibin B <10 AMH <0.015 Stopped letrozole April 2020 09/14/21 Inhibin B is 1 Estradiol less than 25 AMH less [address] scan September 22, 2021, no evidence of disease in the abdomen or pelvis. 01/03/2023 Inhibin B is < 4 Estradiol is < 25 AMH is < 0.03 GENETIC TESTING: - SURVIVORSHIP VISIT COMPLETED: HIS (more content not included)... [facility] 01-03-2023 Miscellaneous Notes Orders have been placed. Lita Bryant APRN.CELSO Patient called, she went to have labs drawn for her appointment on 01/17 but there were no labs ordered. He stated in her last office visit, on 07/12 that he wanted labs done prior 01/17 appointment. Can you please order them? Thank you! Dayna Sutherland RN documented in this encounter [facility] 07-12-2022 Note HNO ID: [id number] Author: Avelino Pro MD Service: ? Author Type: Physician Type: Progress Notes Filed: 07/21/2022 7:35 AM Note Text: Gynecologic Oncology [facility] Follow up visit Date of service: 07/12/2022 PROBLEM/CC: Ayah Goode presents for 6 month follow-up. HPI: Ms. 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 Recurred in 2014, treated surgically and has been on Letrozole daily since. No clinical evidence of recurrence cancer since that time. Last Distance Visit: 04/12/2022 Last Office Visit: 12/28/2021 ONCOLOGY HISTORY: 55-year-old female who was diagnosed with a stage [...] taken to the operating room at the [facility] on September 01, 2014. She underwent resection of a recurrent granulosa cell tumor to no visible disease. When seen for a postoperative assessment by her gynecologic oncologist, discussion of adjuvant therapy included participation in GOG trial 264, randomizing patients between bleomycin, etoposide, and cis-port gamble versus paclitaxel and carboplatin. She was not [...] abnormalities suggesting possible benefit of drugs including port gamble, taxanes, gemcitabine, Doxil, and hormonal agents including [...] identical to values obtained in August 2017 Inhibin B, estradiol, and anti-mullerian hormone on August 22, 2018 are normal September 06, 2018, advised to decrease dose of letrozole to 1.25 mg per day, feeling better after 3 weeks at this lower dose, call office and we will repeat her laboratory studies in 3 months. If she increases her dose back to 2.5 mg because she is not feeling any better, or she is worried about the lower dose being less efficacious, plan will be repeating laboratory studies at her next follow-up in 6 months. 02/26/19: Estradiol <12 AMH <0.015 Inhibin B <10 Diagnosed with hypothyroidism. Started levothyroxine and suicidal ideations ceased. November 14, 2019: Estradiol 22 Inhibing B <10 AMH <0.015 February 24, 2020 Estradiol <19 March 30, 2020: Estradiol <19 Inhibin B <10 AMH <0.015 Stopped letrozole April 2020 09/14/21 Inhibin B is 1 Estradiol less than 25 AMH less [address] scan September 22, 2021, no evidence of disease in the abdomen or pelvis. GENETIC TESTING: HISTORIES: PAST MEDICAL HISTORY Diagnosis Date Hyperlipidemia Hypothyroidism Malignant neoplasm of ovary (HCC) (more content not included)... [facility] 07-12-2022 History of Presen t illness Narrative Gynecologic Oncology [facility] Follow up visit Date of service: 07/12/2022 PROBLEM/CC: Ayah Goode presents for 6 month follow-up. HPI: Ms. 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 Recurred in 2014, treated surgically and has been on Letrozole daily since. No clinical evidence of recurrence cancer since that time. Last Distance Visit: 04/12/2022 Last Office Visit: 12/28/2021 ONCOLOGY HISTORY: 55-year-old female who was diagnosed with a stage [...] taken to the operating room at the [facility] on September 01, 2014. She underwent resection of a recurrent granulosa cell tumor to no visible disease. When seen for a postoperative assessment by her gynecologic oncologist, discussion of adjuvant therapy included participation in GOG trial 264, randomizing patients between bleomycin, etoposide, and cis-port gamble versus paclitaxel and carboplatin. She was not [...] abnormalities suggesting possible benefit of drugs including port gamble, taxanes, gemcitabine, Doxil, and hormonal agents including [...] identical to values obtained in August 2017 Inhibin B, estradiol, and anti-mullerian hormone on August 22, 2018 are normal September 06, 2018, advised to decrease dose of letrozole to 1.25 mg per day, feeling better after 3 weeks at this lower dose, call office and we will repeat her laboratory studies in 3 months. If she increases her dose back to 2.5 mg because she is not feeling any better, or she is worried about the lower dose being less efficacious, plan will be repeating laboratory studies at her next follow-up in 6 months. 02/26/19: Estradiol <12 AMH <0.015 Inhibin B <10 Diagnosed with hypothyroidism. Started levothyroxine and suicidal ideations ceased. November 14, 2019: Estradiol 22 Inhibing B <10 AMH <0.015 February 24, 2020 Estradiol <19 March 30, 2020: Estradiol <19 Inhibin B <10 AMH <0.015 Stopped letrozole April 2020 09/14/21 Inhibin B is 1 Estradiol less than 25 [address]H less than 0[address] scan September 22, 2021, no evidence of disease in the abdomen or pelvis. GENETIC TESTING: HISTORIES: PAST MEDICAL HISTORY Diagnosis Date Hyperlipidemia Hypothyroidism Malignant neoplasm of ovary (HCC) Ovarian cancer MVP (mitral valve prolapse) SVT (supraventricular tachycardia) (HCC) 12/2011 PAST SURGICAL HISTORY Procedure Laterality Date DELIVERY ONLY 04/24/2004 x2 COLONOSCOPY FLX DX W/COLLJ SPEC WHEN PFRMD 09/20/2012 LAPAROSCOPY SURG CHOLECYSTECTOMY 04/24/2002 Cholecystectomy, lap OOPHORECTOMY PARTIAL/TOTAL UNI/BI 04/24/2009 Oophorectomy REVISE MEDIAN N/CARPAL TUNNEL SURG Bilateral 03/2020 TONSILLECTOMY PRIMARY/SECONDARY <AGE 12 TOTAL ABDOMINAL HYSTERECT W/WO RMVL TUBE OVARY 04/24/2009 Hysterectomy, GRAY FAMILY HISTORY Problem Relation Age of Onset Hypertension Mother other (rheumatoid arthritis [Other]) Mother other (ASHD [Other]) Mother [place], cardiac arrest, CVA Hyperlipidemia Mother other (unknown [Other]) Father None Sister SOCIAL HISTORY: Social History Tobacco Use Smoking status: Never Smokeless tobacco: Never Vaping Use Vaping Use: Never used Substance Use Topics Alcohol use: No Comment: none Drug use: No Comment: none Marital Status: PAST GYNECOLOGIC HISTORY: OB History T0 L3 SAB0 IAB0 Ectopic0 Multiple0 Live Births0 LMP: Patient's last menstrual period was 02/23/2009. HEALTH MAINTENANCE: Last pap: 11/03/21 ([facility]), s/p GRAY Last mammogram: 01/23/2019 Last colonoscopy: 09/20/2012 - Normal ALLERGIES Allergen Reactions Amoxacillin [Amoxic* Rash, Anaphylaxis full body rash that lasted for 6 weeks. Doxycycline Hyclate Unknown Erythromycin GI Upset Sulfa (Sulfonamide * Rash Tetracycline Unknown MEDICATIONS MAGNESIUM ORAL Take by mouth. Coenzyme Q10 200 mg cap Take by mouth. iv contrast (will be provided with radiology test) CT ABD/PEL -Inject, intravenously, once for 1 dose.No IV access, insert saline lock prior to the beginning of sedation, infusion, injection of imaging exam. Discontinue saline lock post exam. If Pt. has a central line or IVAD, may access for administration according to line specific nursing protocol. Once exam is complete flush line and de-access according to line specific nursing protocol in the CT contrast administration guidelines link. (Patient not taking: Reported on 12/28/2021) Levothyroxine 75 mcg cap Take 75 mcg by mouth once daily. Cyanocobalamin 1,000 mcg subl Dissolve under the tongue once daily. Cholecalciferol, Vitamin D3, 10,000 unit cap Take by mouth. INTERVAL HISTORY: Ayah Goode reports that she feels great. She presents today alone. She has no health complaints today. 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 She is 2 years s/p Letrozole. Wishes to discuss her cardiovascular risk without her ovaries. Family history of heart disease, cardiac arrest (mother) & CVA (father). reports she stays active on her treadmill daily, she is working to lose weight. Only medication she reports is Levothyroxine. Denies any unusual rapid or rate changes to heart. PHYSICAL EXAM: VITALS: BP 144/82 (BP Site: Right Arm, BP Position: Sitting, BP Cuff Size: Large Adult) Pulse 74 Temp 36.7 C (98 F) (Oral) Ht 162.6 cm (5' 4 ) Wt 89.2 kg (196 lb 9.6 oz) LMP 02/23/2009 SpO2 100% BMI 33.75 kg/m GENERAL: Patient is a well developed, well nourished, no acute distress. Presenting alone SKIN: Color, texture, turgor normal. No rashes or lesions. HEENT: Normocephalic, atraumatic, mucus membranes moist, and no lesions NECK: Supple, no adenopathy; thyroid symmetric, normal size, no bruits LUNGS: Respirations unlabored. Chest clear. HEART: Regular rate and rhythm. No murmer. No JVD. ABDOMEN: Nontender. No palpable masses. Small umbilical hernia palpated below the umbilicus Liver and spleen not palpably enlarged. No ascites apparent. PELVIC: Deferred PSYCHIATRIC: Alert, cooperative. Normal affect. Normal behavior. LYMPH NODES: No palpable enlarged nodes in neck, groin or axilla. NEURO: Normal sensory. Motor intact and symmetric. Gait normal. LOWER EXTREMITIES: Not tender. No ulcers or swelling. Deep tendon reflexes are present Echocardiographer for exam: Lita Bojorquez APRN, INSURANCE HEALTHCARE REPRESENTATIVE RESULTS: CA 125 (U/mL) Date Value 07/23/2014 13 01/23/2014 14 12/20/2012 16 04/12/2010 16 12/16/2009 16 06/27/22 INHIBIN B Component Ref Range & Units 2 wk ago (06/27/22) 3 mo ago (04/05/22) 3 mo ago (03/29/22) 6 mo ago (12/21/21) 10 mo ago (09/14/21) 1 yr ago (03/15/21) 1 yr ago (01/04/21) Inhibin B 1 - 11 pg/mL <4 <4 CM <4 CM 1 CM 1 CM <1 Low CM <1 Low CM 06/27/22 ANTI MULLERIAN HORMONE Component Ref Range & Units 2 wk ago (06/27/22) 3 mo ago (03/29/22) 10 mo ago (09/14/21) 1 yr ago (03/15/21) 1 yr ago (01/04/21) 1 yr ago (09/08/20) 2 yr ago (06/19/20) Anti Mullerian Hormone ng/mL <0.03 <0.03 CM <0.03 CM <0.03 CM <0.03 CM <0.03 CM <0.03 CM Comment: Reference range not established for patients of this age. Resulting [facility] 06/27/22 ESTRADIOL-17B BLOOD Component Ref Range & Units 2 wk ago (06/27/22) 3 mo ago (03/29/22) 10 mo ago (09/14/21) 1 yr ago (03/15/21) 1 yr ago (01/04/21) 1 yr ago (09/08/20) 2 yr ago (06/19/20) Estradiol 17B pg/mL <25 <25 CM <25 CM <25 CM <25 CM <25 CM <25 CM Comment: This test is not suitable for patients receiving treatment with the drug Fulvestrant (Faslodex). The drug causes an interference leading to falsely elevated estradiol results. Menstrual cycle Estradiol reference ranges: Follicular : < 234 pg/mL Ovulation : 41 to 398 pg/mL Luteal : < 342 pg/mL Estradiol reference ranges vary by gestational period: First trimester : 154 to 3243 pg/mL Second trimester : 1561 to 46314 pg/mL Third trimester : 8285 to >63030 pg/mL Post-menopausal Estradiol reference range: < 41 pg/mL Reference: 1. Estradiol - E2 (Estradiol III) [package insert V 3.0 [place]]. [facility], [place], [place], September 2015. Resulting Agency [facility] ASSESSMENT & PLAN: History of recurrent granulosa cell cancer of [...] was mistakenly drawn instead of estradiol on s labs. Will order estradiol level today. I have asked her to see me in 6 months, with usual laboratory studies obtained prior to that visit. September 06, 2018: At today's visit, she reports for the first time periodic suicidal thoughts. Says that this has happened on occasion since she began letrozole about 4 years ago. Has taken no actions on these thoughts, including planning specific method or purchasing a firearm. She believes that these periodic thoughts are related to her letrozole for effects of estrogen deprivation. She does mention that others on her granulosis cell tumor support group website had mentioned suicidal ideation in the past. I explained to her that I am quite concerned about this, she is been reluctant to me in the past because she does not want to stop medication that she thinks has been helping her. She is willing to speak with Dr. Manuela Lazo about her emotional state and sexual concerns. She was provided with a provider profile and contact information. Advised to decrease dose of letrozole to 1.25 mg per day, if feeling better after 3 weeks at this lower dose, call office and we will repeat her laboratory studies in 3 months. If she increases her dose back to 2.5 mg because she is not feeling any better, or she is worried about the lower dose being less efficacious, plan will be repeating laboratory studies at her next follow-up in 6 months. March 14, 2019 No clinical evidence of recurrent disease Plan to continue letrozole 2.5mg Ostoopenia noted on last dexa scan, will need repeat in 2 years. Plan for follow-up in 6 months, will get labs prior to this visit. November 14, 2019 No clinical evidence of recurrent disease Plan to continue letrozole 2.5mg In April 03 2019, had CT A&P done to rule out appendicitis at [facility], showed no pathologic findings. Estradiol increased to 22 (prior <12 for past few years). She believes it is due to a poor diet. She will change diet back to plant based. Inhibin B and AMH normal. Plan for estradiol check in 3 months Will see for followup in March 2020 Recheck estradiol, Inhibin B and AMH prior to follow-up in MarchApril 09, 2020 No evidence of disease by symptoms or exam. Estradiol, AMH, Inhibin B stable. Discussed side effects of letrozole. Recommended continuing letrozole 2.5mg daily, but patient to call office if she would like to stop letrozole for a period of time. Would recheck estradiol, AMH, inhibin B if she were to take a medication holiday. For DEXA scan 2020. Return to clinic in 6 months for surveillance visit. Repeat estradiol, AMH, inhibin B prior to this visit. Patient seen and discussed with Dr. Pro. 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 She discontinued her Letrozole in April 2020 due to concern it was contributing to joint pain and mood changes. Since stopping the medication, she notes significant improvement in her symptoms. Currently being evaluated by orthopedics for possible damage to her right ACL. Scheduled for MRI next week, instructed patient to contact Susy Barton with results Most recent labs from 09/08/2020 showed normal Inhibin B, AMH, and Estradiol levels. Discussed option of restarting Letrozole. Because of the side effects she was experiencing while on the medication and normal Inhibin B levels since stopping 6 months ago, shared decision was made to stay off the Letrozole at this time. Will reevaluate if in the future her Inhibin B rises. Exam today demonstrates no evidence of recurrence. Atrophy of the vulva noted, likely the cause of her pruritus. Do not recommend injections or treatment of her vulvar varicose veins at this time. Repeat Inhibin B, Estradiol, and AMH in 3 months and 6 months Patient will follow up with me in 6 months or sooner if problems arise. 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 Inhibin B has been <1 from May 2020 to February 2021. Estradiol has been <25 from May 2020 to February 2021. AMH has been <0.03 from May 2020 to February 2021. Vitamin D level was 35.5 in February 2021. Patient has been taking 20,000mg of supplemental Vitamin D daily. Patient has been off of Letrozole for about a year now. Reports she has been coping well physically and emotionally since our last visit. No evidence of disease upon physical examination. RTC in 6 months with Inhibin B, AMH, and Estradiol levels checked prior. September 28, 2021 History of recurrent granulosa cell neoplasm, most recent treatment was with letrozole, stopped approximately 18 months ago due to side effects. Last few inhibin B's were less than 1. Most recent inhibin B a couple weeks ago was 1. AMH and estradiol levels are stable and not indicative of a progressing granulosa cell neoplasm. She is concerned that due to a now detectable inhibin B, this could be a reflection of growth of her granulosa cell neoplasm. We discussed this at length. She has no measurable evidence of disease on CT scan and no clinical evidence of disease on clinical exam. She had significant side effects from letrozole, but does state that she would consider resuming this medication if there is more certain evidence that her granulosa cell neoplasm is becoming active again. At this time our plan is to repeat the inhibin B alone in late November, and to see me in early December to discuss the findings. I would be comfortable with resuming letrozole or another aromatase inhibitor without the presence of measurable disease on a CT scan, if she wishes to try this again. Tumor directed radiation, surgery, or cytotoxic chemotherapy would be considered if there is measurable disease, particularly if she has no benefit with subsequent aromatase inhibitor therapy or cannot tolerate it. 12/28/2021 Mrs. 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 She has no measurable evidence of disease on recent CT scan and no clinical evidence of disease on clinical exam. Reviewed continued Inhibin B level of 1. She is concerned that detectable inhibin B, could be a reflection of growth of her granulosa cell neoplasm. Surgery is not recommended at this time but patient may resume aromatase inhibitors (letrozole) if she wishes. She had significant side effects from letrozole, but does state that she would consider resuming this medication if there is more certain evidence that her granulosa cell neoplasm is becoming active again. Plan to retest Inhibin B in 3 months, together with her AMH and estradiol levels (which previously geoffrey when her GCT was becoming active).If results indicate abnormality, recommend a CT scan. Reviewed vascular changes to vulva, identified on PE and a photo was taken for records. These vascularities are not harmful and do not require treatment. Should there be any significant change in size or comfort level contact clinic. Discussed clicking sensation pt experiencing around her thyroid. Order US of thyroid. If not normal, further follow up can be coordinated by her PCP I To address abdominal concern, I palpated around umbilical hernia and reviewed CT. Nothing unexpected felt. Discomfort may reflect post op adhesions. No evidence of incarcerated hernia. Repeat labs and follow up with a telehealth visit April 12 2022, follow up in clinic in 6 months if lab results and ROS are reassuring 04/12/2022 I told Ayah that I spoke with the lab that performed her inhibin B tests ([id number], [place]). I was told the device that measures inhibin levels was changed about two week s ago and the limits of detection of inhibin b are 4 pg/ml or greater. I was told there are plans to change the result intepretation to reflect this, but so far this has not happened. I was also told that others have called the lab with similar questions concerning change in detection limits. Her estradiol and AMH are stable. She has no symptoms concerning for recuurent GCT Plan is for a follow inhibin B about a week before she sees me in June 2022. 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 Inhibin B, Anti-Mullerian Hormone, and Estradiol-17B all at minimum reported values. Counseled on methods of protecting heart health. Recommended she discuss these concerns further with her PCP. Discussed with her potential benefit of Cardiac Calcium Score. PLAN Repeat labs prior to next appointment. Return to clinic in 6 months for continued surveillance. Documentation from my notes of previous visit of 04/12/2022 was copied and pasted, documentation has been reviewed and edited as necessary and is current for today. ATTESTATION: By signing my name below, I, Brenda Hobson, attest that this documentation has been prepared under the direction and in the presence of Avelino Pro MD. I, Avelino Pro MD, agree that the above note, as documented by my scribe, accurately describes my encounter with the patient today. Electronically signed:Rosie Kang, Avelino Pro MD, Physician, July 12, 2022 10:01 AM documented in this encounter [facility] 04-12-2022 Note HNO ID: [id number] Author: Avelino Pro MD Service: ? Author Type: Physician Type: Progress Notes Filed: 04/12/2022 2:35 PM Note Text: TELEPHONE VISIT PROGRESS NOTE Patient has consented to this telephone encounter, not originating from a related Evaluation AND Management service provided within the previous 7 days. NOTE: Cannot be used if an Evaluation AND Management service or procedure is planned within the next 24 hours. Persons Present: patient Chief Complaint/Reason: Patient presents today to discuss her Inhibin B level fluctuation. HPI: Ms. 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 Recurred in 2014, treated surgically and has been on Letrozole daily since. No clinical evidence of recurrence cancer since that time. Data Reviewed: Most recent labs Component Ref Range AND Units 6 d ago (04/05/22) 13 d ago (03/29/22) 3 mo ago (12/21/21) 6 mo ago (09/14/21) 1 yr ago (03/15/21) 1 yr ago (01/04/21) 1 yr ago (09/08/20) Inhibin B 1 - 11 pg/mL <4 <4 CM 1 CM 1 CM <1 Low CM <1 Low CM <1 CM Comment: INTERPRETIVE INFORMATION: Inhibin B ONCOLOGY HISTORY: 55-year-old female who was diagnosed with a stage [...] taken to the operating room at the [facility] on September 01, 2014. She underwent resection of a recurrent granulosa cell tumor to no visible disease. When seen for a postoperative assessment by her gynecologic oncologist, discussion of adjuvant therapy included participation in GOG trial 264, randomizing patients between bleomycin, etoposide, and cis-port gamble versus paclitaxel and carboplatin. She was not [...] abnormalities suggesting possible benefit of drugs including port gamble, taxanes, gemcitabine, Doxil, and hormonal agents including [...] identical to values obtained in August 2017 Inhibin B, estradiol, and anti-mullerian hormone on August 22, 2018 are normal September 06, 2018, advised to decrease dose of letrozole to 1.25 mg per day, feeling better after 3 weeks at this lower dose, call office and we will repeat her laboratory studies in 3 months. If she increases her dose back to 2.5 mg because she is not feeling any better, or she is worried about the lower dose being less efficacious, plan will be repeating laboratory studies at her next follow-up in 6 months. 02/26/19: Estradiol <12 AMH <0.015 Inhibin B <10 Diagnosed with hy (more content not included)... [facility] 04-12-2022 History of Presen t illness Narrative TELEPHONE VISIT PROGRESS NOTE Patient has consented to this telephone encounter, not originating from a related Evaluation & Management service provided within the previous 7 days. NOTE: Cannot be used if an Evaluation & Management service or procedure is planned within the next 24 hours. Persons Present: patient Chief Complaint/Reason: Patient presents today to discuss her Inhibin B level fluctuation. HPI: Ms. 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 Recurred in 2014, treated surgically and has been on Letrozole daily since. No clinical evidence of recurrence cancer since that time. Data Reviewed: Most recent labs Component Ref Range & Units 6 d ago (04/05/22) 13 d ago (03/29/22) 3 mo ago (12/21/21) 6 mo ago (09/14/21) 1 yr ago (03/15/21) 1 yr ago (01/04/21) 1 yr ago (09/08/20) Inhibin B 1 - 11 pg/mL <4 <4 CM 1 CM 1 CM <1 Low CM <1 Low CM <1 CM Comment: INTERPRETIVE INFORMATION: Inhibin B ONCOLOGY HISTORY: 55-year-old female who was diagnosed with a stage [...] taken to the operating room at the [facility] on September 01, 2014. She underwent resection of a recurrent granulosa cell tumor to no visible disease. When seen for a postoperative assessment by her gynecologic oncologist, discussion of adjuvant therapy included participation in GOG trial 264, randomizing patients between bleomycin, etoposide, and cis-port gamble versus paclitaxel and carboplatin. She was not [...] abnormalities suggesting possible benefit of drugs including port gamble, taxanes, gemcitabine, Doxil, and hormonal agents including [...] identical to values obtained in August 2017 Inhibin B, estradiol, and anti-mullerian hormone on August 22, 2018 are normal September 06, 2018, advised to decrease dose of letrozole to 1.25 mg per day, feeling better after 3 weeks at this lower dose, call office and we will repeat her laboratory studies in 3 months. If she increases her dose back to 2.5 mg because she is not feeling any better, or she is worried about the lower dose being less efficacious, plan will be repeating laboratory studies at her next follow-up in 6 months. 02/26/19: Estradiol <12 AMH <0.015 Inhibin B <10 Diagnosed with hypothyroidism. Started levothyroxine and suicidal ideations ceased. November 14, 2019: Estradiol 22 Inhibing B <10 AMH <0.015 February 24, 2020 Estradiol <19 March 30, 2020: Estradiol <19 Inhibin B <10 AMH <0.015 Stopped letrozole April 2020 09/14/21 Inhibin B is 1 Estradiol less than 25 AM[address] than 0[address] scan September 22, 2021, no evidence of disease in the abdomen or pelvis. INTERVAL HISTORY: She has been feeling OK with exception of some anxiety concerning recent inhibin b levels (< 4 03/29 and 04/05). Prior values as noted in her chart (<1 to 1 over last several checks) Assessment & Plan: No diagnosis found. History of recurrent granulosa cell cancer of [...] laboratory studies obtained prior to that visit. September 06, 2018: At today's visit, she reports for the first time periodic suicidal thoughts. Says that this has happened on occasion since she began letrozole about 4 years ago. Has taken no actions on these thoughts, including planning specific method or purchasing a firearm. She believes that these periodic thoughts are related to her letrozole for effects of estrogen deprivation. She does mention that others on her granulosis cell tumor support group website had mentioned suicidal ideation in the past. I explained to her that I am quite concerned about this, she is been reluctant to me in the past because she does not want to stop medication that she thinks has been helping her. She is willing to speak with Dr. Manuela Lazo about her emotional state and sexual concerns. She was provided with a provider profile and contact information. Advised to decrease dose of letrozole to 1.25 mg per day, if feeling better after 3 weeks at this lower dose, call office and we will repeat her laboratory studies in 3 months. If she increases her dose back to 2.5 mg because she is not feeling any better, or she is worried about the lower dose being less efficacious, plan will be repeating laboratory studies at her next follow-up in 6 months. March 14, 2019 No clinical evidence of recurrent disease Plan to continue letrozole 2.5mg Ostoopenia noted on last dexa scan, will need repeat in 2 years. Plan for follow-up in 6 months, will get labs prior to this visit. November 14, 2019 No clinical evidence of recurrent disease Plan to continue letrozole 2.5mg In April 03 2019, had CT A&P done to rule out appendicitis at [facility], showed no pathologic findings. Estradiol increased to 22 (prior <12 for past few years). She believes it is due to a poor diet. She will change diet back to plant based. Inhibin B and AMH normal. Plan for estradiol check in 3 months Will see for followup in March 2020 Recheck estradiol, Inhibin B and AMH prior to follow-up in MarchApril 09, 2020 No evidence of disease by symptoms or exam. Estradiol, AMH, Inhibin B stable. Discussed side effects of letrozole. Recommended continuing letrozole 2.5mg daily, but patient to call office if she would like to stop letrozole for a period of time. Would recheck estradiol, AMH, inhibin B if she were to take a medication holiday. For DEXA scan 2020. Return to clinic in 6 months for surveillance visit. Repeat estradiol, AMH, inhibin B prior to this visit. Patient seen and discussed with Dr. Pro. 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 She discontinued her Letrozole in April 2020 due to concern it was contributing to joint pain and mood changes. Since stopping the medication, she notes significant improvement in her symptoms. Currently being evaluated by orthopedics for possible damage to her right ACL. Scheduled for MRI next week, instructed patient to contact Susy Barton with results Most recent labs from 09/08/2020 showed normal Inhibin B, AMH, and Estradiol levels. Discussed option of restarting Letrozole. Because of the side effects she was experiencing while on the medication and normal Inhibin B levels since stopping 6 months ago, shared decision was made to stay off the Letrozole at this time. Will reevaluate if in the future her Inhibin B rises. Exam today demonstrates no evidence of recurrence. Atrophy of the vulva noted, likely the cause of her pruritus. Do not recommend injections or treatment of her vulvar varicose veins at this time. Repeat Inhibin B, Estradiol, and AMH in 3 months and 6 months Patient will follow up with me in 6 months or sooner if problems arise. 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 Inhibin B has been <1 from May 2020 to February 2021. Estradiol has been <25 from May 2020 to February 2021. AMH has been <0.03 from May 2020 to February 2021. Vitamin D level was 35.5 in February 2021. Patient has been taking 20,000mg of supplemental Vitamin D daily. Patient has been off of Letrozole for about a year now. Reports she has been coping well physically and emotionally since our last visit. No evidence of disease upon physical examination. RTC in 6 months with Inhibin B, AMH, and Estradiol levels checked prior. September 28, 2021 History of recurrent granulosa cell neoplasm, most recent treatment was with letrozole, stopped approximately 18 months ago due to side effects. Last few inhibin B's were less than 1. Most recent inhibin B a couple weeks ago was 1. AMH and estradiol levels are stable and not indicative of a progressing granulosa cell neoplasm. She is concerned that due to a now detectable inhibin B, this could be a reflection of growth of her granulosa cell neoplasm. We discussed this at length. She has no measurable evidence of disease on CT scan and no clinical evidence of disease on clinical exam. She had significant side effects from letrozole, but does state that she would consider resuming this medication if there is more certain evidence that her granulosa cell neoplasm is becoming active again. At this time our plan is to repeat the inhibin B alone in late November, and to see me in early December to discuss the findings. I would be comfortable with resuming letrozole or another aromatase inhibitor without the presence of measurable disease on a CT scan, if she wishes to try this again. Tumor directed radiation, surgery, or cytotoxic chemotherapy would be considered if there is measurable disease, particularly if she has no benefit with subsequent aromatase inhibitor therapy or cannot tolerate it. 12/28/2021 Mrs. 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 She has no measurable evidence of disease on recent CT scan and no clinical evidence of disease on clinical exam. Reviewed continued Inhibin B level of 1. She is concerned that detectable inhibin B, could be a reflection of growth of her granulosa cell neoplasm. Surgery is not recommended at this time but patient may resume aromatase inhibitors (letrozole) if she wishes. She had significant side effects from letrozole, but does state that she would consider resuming this medication if there is more certain evidence that her granulosa cell neoplasm is becoming active again. Plan to retest Inhibin B in 3 months, together with her AMH and estradiol levels (which previously geoffrey when her GCT was becoming active).If results indicate abnormality, recommend a CT scan. Reviewed vascular changes to vulva, identified on PE and a photo was taken for records. These vascularities are not harmful and do not require treatment. Should there be any significant change in size or comfort level contact clinic. Discussed clicking sensation pt experiencing around her thyroid. Order US of thyroid. If not normal, further follow up can be coordinated by her PCP I To address abdominal concern, I palpated around umbilical hernia and reviewed CT. Nothing unexpected felt. Discomfort may reflect post op adhesions. No evidence of incarcerated hernia. Repeat labs and follow up with a telehealth visit April 12 2022, follow up in clinic in 6 months if lab results and ROS are reassuring 04/12/2022 I told Ayah that I spoke with the lab that performed her inhibin B tests ([id number], [place]). I was told the device that measures inhibin levels was changed about two week s ago and the limits of detection of inhibin b are 4 pg/ml or greater. I was told there are plans to change the result intepretation to reflect this, but so far this has not happened. I was also told that others have called the lab with similar questions concerning change in detection limits. Her estradiol and AMH are stable. She has no symptoms concerning for recuurent GCT Plan is for a follow inhibin B about a week before she sees me in June 2022. Total Time Spent: 5-10 minutes ATTESTATION: By signing my name below, I, Avelino Pro MD, attest that I have reviewed the scribe's documentation of the history, examination and assessment of today's encounter. Electronically signed:Avelino Pro MD, April 12, 2022 2:34 PM Attest documented in this encounter [facility] 04-04-2022 Miscellaneous Notes Pt returning call. Pt is concerned that the inhibin B level reported as <4 last week, means that her level has risen from the previously reported 1, 3mons ago. Attempted to explain lab resulting techniques and reasons values may be reported differently. Pt was not satisfied with the explanation. Offered for pt to have lab redrawn prior to appt with Medina on 04/12 at [facility]. Pt is accepting of this POC. Lab order placed. Cora Valle RN ----- Message from Genaro Burgos Adm sent at 04/04/2022 9:27 AM EST ----- Regarding: medina Patient calling Has some questions and concerns regarding her Inhibin B result Ph. [phone] (she starts work at noon) documented in this encounter [facility] 12-28-2021 History of Presen t illness Narrative Gynecologic Oncology [facility] Follow up visit Date of service: 12/28/2021 PROBLEM/CC: Ayah Goode presents for her 3 month follow-up. HPI: Ms. 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 Recurred in 2014, treated surgically and has been on Letrozole daily since. No clinical evidence of recurrence cancer since that time. Last office visit: 09/28/2021 ONCOLOGY HISTORY: 55-year-old female who was diagnosed with a stage [...] taken to the operating room at the [facility] on September 01, 2014. She underwent resection of a recurrent granulosa cell tumor to no visible disease. When seen for a postoperative assessment by her gynecologic oncologist, discussion of adjuvant therapy included participation in GOG trial 264, randomizing patients between bleomycin, etoposide, and cis-port gamble versus paclitaxel and carboplatin. She was not [...] abnormalities suggesting possible benefit of drugs including port gamble, taxanes, gemcitabine, Doxil, and hormonal agents including [...] identical to values obtained in August 2017 Inhibin B, estradiol, and anti-mullerian hormone on August 22, 2018 are normal September 06, 2018, advised to decrease dose of letrozole to 1.25 mg per day, feeling better after 3 weeks at this lower dose, call office and we will repeat her laboratory studies in 3 months. If she increases her dose back to 2.5 mg because she is not feeling any better, or she is worried about the lower dose being less efficacious, plan will be repeating laboratory studies at her next follow-up in 6 months. 02/26/19: Estradiol <12 AMH <0.015 Inhibin B <10 Diagnosed with hypothyroidism. Started levothyroxine and suicidal ideations ceased. November 14, 2019: Estradiol 22 Inhibing B <10 AMH <0.015 February 24, 2020 Estradiol <19 March 30, 2020: Estradiol <19 Inhibin B <10 AMH <0.015 Stopped letrozole April 2020 09/14/21 Inhibin B is 1 Estradiol less than 25 AMH less than 0[address] scan September 22, 2021, no evidence of disease in the abdomen or pelvis. HISTORIES: PAST MEDICAL HISTORY Diagnosis Date Hyperlipidemia Hypothyroidism Malignant neoplasm of ovary (HCC) Ovarian cancer MVP (mitral valve prolapse) SVT (supraventricular tachycardia) (HCC) 12/2011 PAST SURGICAL HISTORY Procedure Laterality Date DELIVERY ONLY 04/24/2004 x2 COLONOSCOPY FLX DX W/COLLJ SPEC WHEN PFRMD 09/20/2012 LAPAROSCOPY SURG CHOLECYSTECTOMY 04/24/2002 Cholecystectomy, lap OOPHORECTOMY PARTIAL/TOTAL UNI/BI 04/24/2009 Oophorectomy REVISE MEDIAN N/CARPAL TUNNEL SURG Bilateral 03/2020 TONSILLECTOMY PRIMARY/SECONDARY <AGE 12 TOTAL ABDOMINAL HYSTERECT W/WO RMVL TUBE OVARY 04/24/2009 Hysterectomy, GRAY FAMILY HISTORY Problem Relation Age of Onset Hypertension Mother other (rheumatoid arthritis [Other]) Mother other (ASHD [Other]) Mother NM, cardiac arrest, CVA Hyperlipidemia Mother other (unknown [Other]) Father None Sister SOCIAL HISTORY: Social History Tobacco Use Smoking status: Never Smokeless tobacco: Never Vaping Use Vaping Use: Never used Substance Use Topics Alcohol use: No Comment: none Drug use: No Comment: none Marital Status: PAST GYNECOLOGIC HISTORY: OB History T0 L3 SAB0 IAB0 Ectopic0 Multiple0 Live Births0 LMP: Patient's last menstrual period was 02/23/2009. HEALTH MAINTENANCE: Last pap: 11/03/21 ([facility]) Last mammogram: 01/23/2019 Last colonoscopy: 2012 ALLERGIES Allergen Reactions Amoxacillin [Amoxic* Rash, Anaphylaxis full body rash that lasted for 6 weeks. Doxycycline Hyclate Unknown Erythromycin GI Upset Sulfa (Sulfonamide * Rash Tetracycline Unknown MEDICATIONS MAGNESIUM ORAL Take by mouth. Coenzyme Q10 200 mg cap Take by mouth. Levothyroxine 75 mcg cap Take 75 mcg by mouth once daily. Cyanocobalamin 1,000 mcg subl Dissolve under the tongue once daily. Cholecalciferol, Vitamin D3, 10,000 unit cap Take by mouth. iv contrast (will be provided with radiology test) CT ABD/PEL -Inject, intravenously, once for 1 dose.No IV access, insert saline lock prior to the beginning of sedation, infusion, injection of imaging exam. Discontinue saline lock post exam. If Pt. has a central line or IVAD, may access for administration according to line specific nursing protocol. Once exam is complete flush line and de-access according to line specific nursing protocol in the CT contrast administration guidelines link. (Patient not taking: Reported on 12/28/2021) letrozole (FEMARA) 2.5 mg tablet Take 1 tablet by mouth once daily. (Patient not taking: Reported on 09/22/2020 ) INTERVAL HISTORY: Ayah Goode presents today for follow up. She expresses concern that her Inhibin B is still 1. She presents today with her , Yvon. She also reports a raised vascularities on her vulva and wishes to have it reduced if possible. Pt takes thyroid replacement medication, she notes occasional clicking sensation on left side of her trachea on swallowing. reports mild intermittent discomfort to the right of her umbilicus Wondering if this may be related to her umbilical hernia noted on prior imaging. Discomfort is mild, intermittent, without any clearly identified exacerbating factors. ROS LUNGS: No shortness of breath, cough, or chest pain. THROAT: Occasional discomfort and difficulty swallowing around her thyroid ABDOMEN: See HPI. PELVIS: She reports a raised vascularity on her vulva. No vaginal bleeding or discharge. PHYSICAL EXAM: VITALS: BP 161/86 (BP Site: Left Arm, BP Position: Sitting, BP Cuff Size: Regular Adult) Pulse 71 Temp 36.7 C (98 F) (Oral) Ht 162.6 cm (5' 4 ) Wt 83.3 kg (183 lb 9.6 oz) LMP 02/23/2009 SpO2 100% BMI 31.51 kg/m Pertinent findings include: GENERAL: Patient is a well developed, well nourished, no acute distress. Accompanied with her SKIN: Color, texture, turgor normal. . HEENT: Normocephalic, atraumatic, mucus membranes moist, and no lesions NECK:Thyroid not enlarged. No nodules palpated. Normal pulse pressure in carotids bilaterally. LUNGS: Respirations unlabored. Chest clear. HEART: Regular sinus rate and rhythm. No murmer. No JVD. ABDOMEN: Small umbilical hernia palpated below the umbilicus. Nontender. No discomfort in surrounding abdomen. No other palpable masses. PELVIC: Slightly elevated blue vulvar varicosities bilaterally, deep varicosities are more apparent with valsalva. Varicies documented into chart as an image. PSYCHIATRIC: Alert, cooperative. Normal affect. Normal behavior. LYMPH NODES: No palpable enlarged nodes in neck. NEURO: Normal sensory. Motor intact and symmetric. Gait normal. LOWER EXTREMITIES: Not tender. No ulcers or swelling. LINES or DRAINS: Echocardiographer for exam: Nikia Bojorquez APRN, INSURANCE HEALTHCARE REPRESENTATIVE RESULTS: CA 125 (U/mL) Date Value 07/23/2014 13 01/23/2014 14 12/20/2012 16 04/12/2010 16 12/16/2009 16 12/21/21 INHIBIN B Component Ref Range & Units 6 d ago (12/21/21) 3 mo ago (09/14/21) 9 mo ago (03/15/21) 11 mo ago (01/04/21) 1 yr ago (09/08/20) 1 yr ago (06/19/20) 7 yr ago (10/09/14) Inhibin B 1 - 11 pg/mL 1 1 CM <1 Low CM <1 Low CM <1 CM <1 CM <10 R, CM Comment: INTERPRETIVE INFORMATION: Inhibin B ASSESSMENT & PLAN: History of recurrent granulosa cell cancer of [...] laboratory studies obtained prior to that visit. September 06, 2018: At today's visit, she reports for the first time periodic suicidal thoughts. Says that this has happened on occasion since she began letrozole about 4 years ago. Has taken no actions on these thoughts, including planning specific method or purchasing a firearm. She believes that these periodic thoughts are related to her letrozole for effects of estrogen deprivation. She does mention that others on her granulosis cell tumor support group website had mentioned suicidal ideation in the past. I explained to her that I am quite concerned about this, she is been reluctant to me in the past because she does not want to stop medication that she thinks has been helping her. She is willing to speak with Dr. Manuela Lazo about her emotional state and sexual concerns. She was provided with a provider profile and contact information. Advised to decrease dose of letrozole to 1.25 mg per day, if feeling better after 3 weeks at this lower dose, call office and we will repeat her laboratory studies in 3 months. If she increases her dose back to 2.5 mg because she is not feeling any better, or she is worried about the lower dose being less efficacious, plan will be repeating laboratory studies at her next follow-up in 6 months. March 14, 2019 No clinical evidence of recurrent disease Plan to continue letrozole 2.5mg Ostoopenia noted on last dexa scan, will need repeat in 2 years. Plan for follow-up in 6 months, will get labs prior to this visit. November 14, 2019 No clinical evidence of recurrent disease Plan to continue letrozole 2.5mg In April 03 2019, had CT A&P done to rule out appendicitis at [facility], showed no pathologic findings. Estradiol increased to 22 (prior <12 for past few years). She believes it is due to a poor diet. She will change diet back to plant based. Inhibin B and AMH normal. Plan for estradiol check in 3 months Will see for followup in March 2020 Recheck estradiol, Inhibin B and AMH prior to follow-up in MarchApril 09, 2020 No evidence of disease by symptoms or exam. Estradiol, AMH, Inhibin B stable. Discussed side effects of letrozole. Recommended continuing letrozole 2.5mg daily, but patient to call office if she would like to stop letrozole for a period of time. Would recheck estradiol, AMH, inhibin B if she were to take a medication holiday. For DEXA scan 2020. Return to clinic in 6 months for surveillance visit. Repeat estradiol, AMH, inhibin B prior to this visit. Patient seen and discussed with Dr. Pro. 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 She discontinued her Letrozole in April 2020 due to concern it was contributing to joint pain and mood changes. Since stopping the medication, she notes significant improvement in her symptoms. Currently being evaluated by orthopedics for possible damage to her right ACL. Scheduled for MRI next week, instructed patient to contact Susy Barton with results Most recent labs from 09/08/2020 showed normal Inhibin B, AMH, and Estradiol levels. Discussed option of restarting Letrozole. Because of the side effects she was experiencing while on the medication and normal Inhibin B levels since stopping 6 months ago, shared decision was made to stay off the Letrozole at this time. Will reevaluate if in the future her Inhibin B rises. Exam today demonstrates no evidence of recurrence. Atrophy of the vulva noted, likely the cause of her pruritus. Do not recommend injections or treatment of her vulvar varicose veins at this time. Repeat Inhibin B, Estradiol, and AMH in 3 months and 6 months Patient will follow up with me in 6 months or sooner if problems arise. 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 Inhibin B has been <1 from May 2020 to February 2021. Estradiol has been <25 from May 2020 to February 2021. AMH has been <0.03 from May 2020 to February 2021. Vitamin D level was 35.5 in February 2021. Patient has been taking 20,000mg of supplemental Vitamin D daily. Patient has been off of Letrozole for about a year now. Reports she has been coping well physically and emotionally since our last visit. No evidence of disease upon physical examination. RTC in 6 months with Inhibin B, AMH, and Estradiol levels checked prior. September 28, 2021 History of recurrent granulosa cell neoplasm, most recent treatment was with letrozole, stopped approximately 18 months ago due to side effects. Last few inhibin B's were less than 1. Most recent inhibin B a couple weeks ago was 1. AMH and estradiol levels are stable and not indicative of a progressing granulosa cell neoplasm. She is concerned that due to a now detectable inhibin B, this could be a reflection of growth of her granulosa cell neoplasm. We discussed this at length. She has no measurable evidence of disease on CT scan and no clinical evidence of disease on clinical exam. She had significant side effects from letrozole, but does state that she would consider resuming this medication if there is more certain evidence that her granulosa cell neoplasm is becoming active again. At this time our plan is to repeat the inhibin B alone in late November, and to see me in early December to discuss the findings. I would be comfortable with resuming letrozole or another aromatase inhibitor without the presence of measurable disease on a CT scan, if she wishes to try this again. Tumor directed radiation, surgery, or cytotoxic chemotherapy would be considered if there is measurable disease, particularly if she has no benefit with subsequent aromatase inhibitor therapy or cannot tolerate it. 12/28/2021 Mrs. 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 She has no measurable evidence of disease on recent CT scan and no clinical evidence of disease on clinical exam. Reviewed continued Inhibin B level of 1. She is concerned that detectable inhibin B, could be a reflection of growth of her granulosa cell neoplasm. Surgery is not recommended at this time but patient may resume aromatase inhibitors (letrozole) if she wishes. She had significant side effects from letrozole, but does state that she would consider resuming this medication if there is more certain evidence that her granulosa cell neoplasm is becoming active again. Plan to retest Inhibin B in 3 months, together with her AMH and estradiol levels (which previously geoffrey when her GCT was becoming active).If results indicate abnormality, recommend a CT scan. Reviewed vascular changes to vulva, identified on PE and a photo was taken for records. These vascularities are not harmful and do not require treatment. Should there be any significant change in size or comfort level contact clinic. Discussed clicking sensation pt experiencing around her thyroid. Order US of thyroid. If not normal, further follow up can be coordinated by her PCP I To address abdominal concern, I palpated around umbilical hernia and reviewed CT. Nothing unexpected felt. Discomfort may reflect post op adhesions. No evidence of incarcerated hernia. Repeat labs and follow up with a telehealth visit April 12 2022, follow up in clinic in 6 months if lab results and ROS are reassuring Documentation from my notes of previous visit of 09/28/2021 was copied and pasted, documentation has been reviewed and edited as necessary and is current for today. ATTESTATION: By signing my name below, I, Brenda Hobson, attest that this documentation has been prepared under the direction and in the presence of Avelino Pro MD. I, Avelino Pro MD, agree that the above note, as documented by my scribe, accurately describes my encounter with the patient today. Electronically signed:Rosie Kang, Avelino Pro MD, Physician, December 28, 2021 9:57 AM documented in this encounter [facility] 09-28-2021 History of Presen t illness Narrative Gynecologic Oncology [facility] Follow up visit Date of service: 09/28/2021 PROBLEM/CC: Ayah Goode presents for follow-up. Concerned because her inhibin B level was detectable at 1, previously values less than 1. HPI: Ms. 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 Recurred in 2014, treated surgically and has been on Letrozole daily since. No clinical evidence of recurrence cancer since that time. Last office visit: 03/30/2022 ONCOLOGY HISTORY: 55-year-old female who was diagnosed with a stage [...] taken to the operating room at the [facility] on September 01, 2014. She underwent resection of a recurrent granulosa cell tumor to no visible disease. When seen for a postoperative assessment by her gynecologic oncologist, discussion of adjuvant therapy included participation in GOG trial 264, randomizing patients between bleomycin, etoposide, and cis-port gamble versus paclitaxel and carboplatin. She was not [...] abnormalities suggesting possible benefit of drugs including port gamble, taxanes, gemcitabine, Doxil, and hormonal agents including [...] identical to values obtained in August 2017 Inhibin B, estradiol, and anti-mullerian hormone on August 22, 2018 are normal September 06, 2018, advised to decrease dose of letrozole to 1.25 mg per day, feeling better after 3 weeks at this lower dose, call office and we will repeat her laboratory studies in 3 months. If she increases her dose back to 2.5 mg because she is not feeling any better, or she is worried about the lower dose being less efficacious, plan will be repeating laboratory studies at her next follow-up in 6 months. 02/26/19: Estradiol <12 AMH <0.015 Inhibin B <10 Diagnosed with hypothyroidism. Started levothyroxine and suicidal ideations ceased. November 14, 2019: Estradiol 22 Inhibing B <10 AMH <0.015 February 24, 2020 Estradiol <19 March 30, 2020: Estradiol <19 Inhibin B <10 AMH <0.015 Stopped letrozole April 2020 09/14/21 Inhibin B is 1 Estradiol less than 25 [address] than 0[address] scan September 22, 2021, no evidence of disease in the abdomen or pelvis. HISTORIES: PAST MEDICAL HISTORY Diagnosis Date Hyperlipidemia Hypothyroidism Malignant neoplasm of ovary (HCC) Ovarian cancer MVP (mitral valve prolapse) SVT (supraventricular tachycardia) (HCC) 12/2011 PAST SURGICAL HISTORY Procedure Laterality Date DELIVERY ONLY 04/24/2004 x2 COLONOSCOPY FLX DX W/COLLJ SPEC WHEN PFRMD 09/20/2012 LAPAROSCOPY SURG CHOLECYSTECTOMY 04/24/2002 Cholecystectomy, lap OOPHORECTOMY PARTIAL/TOTAL UNI/BI 04/24/2009 Oophorectomy REVISE MEDIAN N/CARPAL TUNNEL SURG Bilateral 03/2020 TONSILLECTOMY PRIMARY/SECONDARY <AGE 12 TOTAL ABDOMINAL HYSTERECT W/WO RMVL TUBE OVARY 04/24/2009 Hysterectomy, GRAY FAMILY HISTORY Problem Relation Age of Onset Hypertension Mother other (rheumatoid arthritis [Other]) Mother other (ASHD [Other]) Mother NM, cardiac arrest, CVA Hyperlipidemia Mother other (unknown [Other]) Father None Sister SOCIAL HISTORY: Social History Tobacco Use Smoking status: Never Smoker Smokeless tobacco: Never Used Vaping Use Vaping Use: Never used Substance Use Topics Alcohol use: No Comment: none Drug use: No Comment: none Marital Status: PAST GYNECOLOGIC HISTORY: OB History T0 L3 SAB0 IAB0 Ectopic0 Multiple0 Live Births0 LMP: Patient's last menstrual period was 02/23/2009. HEALTH MAINTENANCE: Last pap: Last mammogram: Last colonoscopy: ALLERGIES Allergen Reactions Amoxacillin [Amoxic* Rash, Anaphylaxis full body rash that lasted for 6 weeks. Doxycycline Hyclate Unknown Erythromycin GI Upset Sulfa (Sulfonamide * Rash Tetracycline Unknown Coenzyme Q10 200 mg cap Take by mouth. iv contrast (will be provided with radiology test) CT ABD/PEL -Inject, intravenously, once for 1 dose.No IV access, insert saline lock prior to the beginning of sedation, infusion, injection of imaging exam. Discontinue saline lock post exam. If Pt. has a central line or IVAD, may access for administration according to line specific nursing protocol. Once exam is complete flush line and de-access according to line specific nursing protocol in the CT contrast administration guidelines link. Levothyroxine 75 mcg cap Take 75 mcg by mouth once daily. Cyanocobalamin (VITAMIN B-12) 1,000 mcg subl Dissolve under the tongue once daily. Cholecalciferol, Vitamin D3, 10,000 unit cap Take by mouth. letrozole (FEMARA) 2.5 mg tablet Take 1 tablet by mouth once daily. INTERVAL HISTORY: Ayah Goode reports that she feels well. She has noted a sense that she is unable to completely empty her bladder with the first void, and after she repositions her self she feels that she can complete her voiding. No dysuria hematuria or incontinence. Says that this is not interfering with her quality of life. No abdominal pain, bloating, trouble with bowels. She has gained about 20 pounds over the last year. She had lost quite a bit of weight intentionally in 2019. Her ECOG performance status is zero (fully active, able to carry on all pre-disease performance without restriction). PHYSICAL EXAM: VITALS: BP 162/88 (BP Site: Left Arm, BP Position: Sitting, BP Cuff Size: Regular Adult) Pulse 83 Temp 36.2 C (97.2 F) (Temporal) Ht 162.6 cm (5' 4 ) Wt 83.9 kg (185 lb) LMP 02/23/2009 SpO2 99% BMI 31.76 kg/m Pertinent findings include; General: Well appearing, alone for visit Lungs: Respirations are unlabored at rest. No wheezing Heart: Sinus rhythm, normal rate, no audible murmer Abdomen: Nontender. No palpable masses. No ascites. Small umbilical hernia. Pelvic: Normal vulva. Vagina no lesions. Uterus and cervix absent. No pelvic masses. Base of bladder smooth, nontender. Legs without swelling or edema. Skin no rashes or bruising. Echocardiographer for exam: Kiara RESULTS: CT scan September 22, 2021 no evidence of disease in abdomen or pelvis. ASSESSMENT & PLAN: History of recurrent granulosa cell cancer of [...] was mistakenly drawn instead of estradiol on s labs. Will order estradiol level today. I have asked her to see me in 6 months, with usual laboratory studies obtained prior to that visit. September 06, 2018: At today's visit, she reports for the first time periodic suicidal thoughts. Says that this has happened on occasion since she began letrozole about 4 years ago. Has taken no actions on these thoughts, including planning specific method or purchasing a firearm. She believes that these periodic thoughts are related to her letrozole for effects of estrogen deprivation. She does mention that others on her granulosis cell tumor support group website had mentioned suicidal ideation in the past. I explained to her that I am quite concerned about this, she is been reluctant to me in the past because she does not want to stop medication that she thinks has been helping her. She is willing to speak with Dr. Manuela Lazo about her emotional state and sexual concerns. She was provided with a provider profile and contact information. Advised to decrease dose of letrozole to 1.25 mg per day, if feeling better after 3 weeks at this lower dose, call office and we will repeat her laboratory studies in 3 months. If she increases her dose back to 2.5 mg because she is not feeling any better, or she is worried about the lower dose being less efficacious, plan will be repeating laboratory studies at her next follow-up in 6 months. March 14, 2019 No clinical evidence of recurrent disease Plan to continue letrozole 2.5mg Ostoopenia noted on last dexa scan, will need repeat in 2 years. Plan for follow-up in 6 months, will get labs prior to this visit. November 14, 2019 No clinical evidence of recurrent disease Plan to continue letrozole 2.5mg In April 03 2019, had CT A&P done to rule out appendicitis at [facility], showed no pathologic findings. Estradiol increased to 22 (prior <12 for past few years). She believes it is due to a poor diet. She will change diet back to plant based. Inhibin B and AMH normal. Plan for estradiol check in 3 months Will see for followup in March 2020 Recheck estradiol, Inhibin B and AMH prior to follow-up in MarchApril 09, 2020 No evidence of disease by symptoms or exam. Estradiol, AMH, Inhibin B stable. Discussed side effects of letrozole. Recommended continuing letrozole 2.5mg daily, but patient to call office if she would like to stop letrozole for a period of time. Would recheck estradiol, AMH, inhibin B if she were to take a medication holiday. For DEXA scan 2020. Return to clinic in 6 months for surveillance visit. Repeat estradiol, AMH, inhibin B prior to this visit. Patient seen and discussed with Dr. Pro. 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 She discontinued her Letrozole in April 2020 due to concern it was contributing to joint pain and mood changes. Since stopping the medication, she notes significant improvement in her symptoms. Currently being evaluated by orthopedics for possible damage to her right ACL. Scheduled for MRI next week, instructed patient to contact Susy Barton with results Most recent labs from 09/08/2020 showed normal Inhibin B, AMH, and Estradiol levels. Discussed option of restarting Letrozole. Because of the side effects she was experiencing while on the medication and normal Inhibin B levels since stopping 6 months ago, shared decision was made to stay off the Letrozole at this time. Will reevaluate if in the future her Inhibin B rises. Exam today demonstrates no evidence of recurrence. Atrophy of the vulva noted, likely the cause of her pruritus. Do not recommend injections or treatment of her vulvar varicose veins at this time. Repeat Inhibin B, Estradiol, and AMH in 3 months and 6 months Patient will follow up with me in 6 months or sooner if problems arise. 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 Inhibin B has been <1 from May 2020 to February 2021. Estradiol has been <25 from May 2020 to February 2021. AMH has been <0.03 from May 2020 to February 2021. Vitamin D level was 35.5 in February 2021. Patient has been taking 20,000mg of supplemental Vitamin D daily. Patient has been off of Letrozole for about a year now. Reports she has been coping well physically and emotionally since our last visit. No evidence of disease upon physical examination. RTC in 6 months with Inhibin B, AMH, and Estradiol levels checked prior. September 28, 2021 History of recurrent granulosa cell neoplasm, most recent treatment was with letrozole, stopped approximately 18 months ago due to side effects. Last few inhibin B's were less than 1. Most recent inhibin B a couple weeks ago was 1. AMH and estradiol levels are stable and not indicative of a progressing granulosa cell neoplasm. She is concerned that due to a now detectable inhibin B, this could be a reflection of growth of her granulosa cell neoplasm. We discussed this at length. She has no measurable evidence of disease on CT scan and no clinical evidence of disease on clinical exam. She had significant side effects from letrozole, but does state that she would consider resuming this medication if there is more certain evidence that her granulosa cell neoplasm is becoming active again. At this time our plan is to repeat the inhibin B alone in late November, and to see me in early December to discuss the findings. I would be comfortable with resuming letrozole or another aromatase inhibitor without the presence of measurable disease on a CT scan, if she wishes to try this again. Tumor directed radiation, surgery, or cytotoxic chemotherapy would be considered if there is measurable disease, particularly if she has no benefit with subsequent aromatase inhibitor therapy or cannot tolerate it. Documentation from my notes of previous visit of 03/12/2021 was copied and pasted, documentation has been reviewed and edited as necessary and is current for today. documented in this encounter [facility] 09-22-2021 History of Presen t illness Narrative Radiology Service Progress Note DATE OF SERVICE: September 22, 2021 TIME: 1:23 PM PATIENT IDENTITY VERIFICATION COMPLETED USING TWO (2) STANDARD IDENTIFIERS: Name and Date of confirmed by patient verbally. FALL SCREENING: Has the patient had 2 falls in the last year or 1 fall with injury or currently using an Ambulatory Assistive Device (Walker, Cane, Wheelchair, Crutches, etc.)? No PATIENT GENDER DATA: Female. status: : No status: NO. PATIENT RELEVANT IMPLANT DATA REVIEWED: Yes ALLERGIES: Reviewed and unchanged CONTRAST ALLERGY: NO. EXAM: CT -CONTRAST INDUCED NEPHROPATHY RISK FACTORS: Not applicable CREATININE: Creatinine Date Value Ref Range Status 09/22/2021 0.62 0.58 - 0.96 mg/dL Final 10/10/2017 0.66 0.58 - 0.96 mg/dL Final 03/01/2016 0.75 0.58 - 0.96 mg/dL Final Estimated Glomerular Filtration Rate Date Value Ref Range Status 09/22/2021 105 >=60 mL/min/1.73m Final Comment: Estimated Glomerular Filtration Rate (eGFR) is calculated using the 2020 CKD-EPI creatinine equation. This equation utilizes serum creatinine, sex, and age as parameters. The creatinine assay has traceable calibration to isotope dilution-mass spectrometry. Refer to KDIGO guidelines for clinical interpretation. In patients with unstable renal function, e.g. those with acute kidney injury, the eGFR may not accurately reflect actual GFR. eGFR- Date Value Ref Range Status 10/10/2017 >60 Final P.O.C.T. RESULTS: POC done: Yes, See Lab Tab September 22, 2021 TREATMENT: N/A PERIPHERAL IV DATA: Ambulatory: A peripheral IV was started in the Left antecubital site with a Angio cath: 22 gauge. RADIOLOGY DEPARTMENT: CT; Exam(s) Completed: Abdomen/Pelvis SIGNATURE: Radha Adams RT(R) PATIENT NAME: Ayah Goode DATE: September 22, 2021 TIME: 1:23 PM documented in this encounter [facility] 09-21-2021 Miscellaneous Notes Spoke to Veronica and explained her CT is scheduled for tomorrow 09/22/21 at the [facility] at 8:40 am. Advised of fasting for 4 hours before the scan. Advised we will get the results before her in office appointment on 09/28/21. She stated that she understood. Francy York 09/21/21 documented in this encounter [facility] Diagnosis Granulosa cell carcinoma of ovary, unspecified laterality (HCC) documented in this encounter [facility] note* Diagnosis Granulosa cell carcinoma of ovary, unspecified laterality (HCC)- Primary documented in this encounter [facility] note* Diagnosis Granulosa cell carcinoma of ovary, unspecified laterality (HCC)- Primary Dysphagia, unspecified type Anxiety associated with cancer diagnosis (HCC) [facility] Diagnosis Granulosa cell carcinoma of ovary, unspecified laterality (HCC)- Primary documented in this encounter [facility] note* Diagnosis Granulosa cell carcinoma of ovary, unspecified laterality (HCC)- Primary [facility] Diagnostic Procedure Only (Routine) - Authorized Specialty Diagnoses / Procedures Referred By Contac t Referred To Contact US IMAGING Diagnoses Dysphagia, unspecified type Procedures US THYROID/PARATHYROID US SOFT TISSUE HEAD & NECK REAL TIME IMGE DOCLita Stevens APRN.INSURANCE HEALTHCARE REPRESENTATIVE [address] [place] [address] Us Imaging Referral ID Status Reason Start Date Expiration Date Visits Requested Visits Authorized [id number] Authorized Auto-Generat ed Referral 12/28/2021 01/27/2023 1 1 [facility] Summary Purpose Family History No Family History Records FoundThere may be information available, but it has not been provided by the sender.No Family History Records FoundNo Family History Records FoundNo Family History Records Found Advance Directives No Advanced Directives Records FoundThere may be information available, but it has not been provided by the sender.No Advanced Directives Records FoundNo Advanced Directives Records FoundNo Advanced Directives Records Found Chief Complaint Chief Complaint Description Start Date bilateral hand numbness / tingling 04/03 Preliminary chief co mplaint data, not yet signed by the author as of Instructions Instruction Description Start Date Patient advised to follow-up with Primary Care Physician for BMI management. Assessments There may be information available, but it has not been provided by the sender. Review of System There may be information available, but it has not been provided by the sender. History of Present Illness There may be information available, but it has not been provided by the sender. Reason for Referral Specialty Diagnoses / Procedures Referred By Manjula kim Referred To Contact CT IMAGING Diagnoses Granulosa cell carcinoma of ovary, unspecified laterality (HCC) Procedures CT ABD/PEL W IVCON CT ABD & PELVIS W/CONTRAST Lita Bryant, WEB OPERATIONS MANAGER.INSURANCE HEALTHCARE REPRESENTATIVE [address] [place] [address] Ct Imaging Referral ID Status Reason Start Date Expiration Date V isits Requested Visits Authorized [id number] Closed Auto-Generate d Referral 09/21/2021 10/21/2022 1 1 Additional Source Comments INFORMATION SOURCE (unrecogn ized section and content) DATE CREATED AUTHOR AUTHOR'S ORGANIZ ATION 04/11/2020 [facility] DATE CREATED AUTHOR AUTHOR'S ORGANIZ ATION 01/07/2023 [facility] DATE CREATED AUTHOR AUTHOR'S ORGANIZ ATION 01/25/2023 [facility] Reason for Visit (unrecogniz ed section and content) Reason Comments Scans Appointment Reason Comments Radiology CT Specialty Diagnoses / Procedures Referred By Manjula kim Referred To Contact CT IMAGING Diagnoses Granulosa cell carcinoma of ovary, unspecified laterality (HCC) Procedures CT ABD/PEL W IVCON CT ABD & PELVIS W/CONTRAST Lita Bryant, WEB OPERATIONS MANAGER.INSURANCE HEALTHCARE REPRESENTATIVE [address] [place] [address] Ct Imaging Referral ID Status Reason Start Date Expiration Date V isits Requested Visits Authorized [id number] Closed Auto-Generate d Referral 09/21/2021 10/21/2022 1 1 Specialty Diagnoses / Procedures Referred By Contmary t Referred To Contact Radiology / RADIO CT SCAN [facility] Diagnoses Granulosa cell carcinoma of ovary, unspecified laterality (HCC) [C56.9] Procedures CT ORAL PREP Lita Bryant, WEB OPERATIONS MANAGER.INSURANCE HEALTHCARE REPRESENTATIVE [address] [place] [address] Scan [facility] [address] [place] [address] Referral ID Status Reason Start Date Expiration Date Visits Re quested Visits Authorized [id number] Closed 09/22/2021 11/21/2021 1 1 Reason Comments Follow Up Reason Comments Established Patient Reason Comments Results Returning Patient's Call Reason Comments Cancer Reason Comments Orders Source Comments (unrecognize d section and content) In the event this informatio n is protected by the Federal Confidentiality of Alcohol and Drug Abuse Patient Records regulations: The Federal rules restrict any use of the information to criminally investigate or prosecute any alcohol or drug abuse patient.[facility] the event this information is protected by the Federal Confidentiality of Alcohol and Drug Abuse Patient Records regulations: The Federal rules restrict any use of the information to criminally investigate or prosecute any alcohol or drug abuse patient.[facility] the event this information is protected by the Federal Confidentiality of Alcohol and Drug Abuse Patient Records regulations: The Federal rules restrict any use of the information to criminally investigate or prosecute any alcohol or drug abuse patient.[facility] Center[facility] the event this information is protected by the Federal Confidentiality of Alcohol and Drug Abuse Patient Records regulations: The Federal rules restrict any use of the information to criminally investigate or prosecute any alcohol or drug abuse patient.[facility] the event this information is protected by the Federal Confidentiality of Alcohol and Drug Abuse Patient Records regulations: The Federal rules restrict any use of the information to criminally investigate or prosecute any alcohol or drug abuse patient.[facility] Center[facility] the event this information is protected by the Federal Confidentiality of Alcohol and Drug Abuse Patient Records regulations: The Federal rules restrict any use of the information to criminally investigate or prosecute any alcohol or drug abuse patient.[facility] Center[facility] the event this information is protected by the Federal Confidentiality of Alcohol and Drug Abuse Patient Records regulations: The Federal rules restrict any use of the information to criminally investigate or prosecute any alcohol or drug abuse patient.[facility] Center[facility] the event this information is protected by the Federal Confidentiality of Alcohol and Drug Abuse Patient Records regulations: The Federal rules restrict any use of the information to criminally investigate or prosecute any alcohol or drug abuse patient.[facility] Center[facility] the event this information is protected by the Federal Confidentiality of Alcohol and Drug Abuse Patient Records regulations: The Federal rules restrict any use of the information to criminally investigate or prosecute any alcohol or drug abuse patient.[facility] Center[facility] the event this information is protected by the Federal Confidentiality of Alcohol and Drug Abuse Patient Records regulations: The Federal rules restrict any use of the information to criminally investigate or prosecute any alcohol or drug abuse patient.[facility] Center[facility] the event this information is protected by the Federal Confidentiality of Alcohol and Drug Abuse Patient Records regulations: The Federal rules restrict any use of the information to criminally investigate or prosecute any alcohol or drug abuse patient.[facility] Care Teams (unrecognized sec tion and content) Winder Tender Relationship Specialty Start Date End Date Dick Ruiz MD [address] [facility] [address] [place] [address] PCP - General Family Practice 06/27/19 Winder Tender Relationship Specialty Start Date End Date Dick Ruiz MD [address] [facility] [address] [place] [address] PCP - General Family Practice 06/27/19 Winder Tender Relationship Specialty Start Date End Date Dick Ruiz MD [address] [facility] [address] [place] [address] PCP - General Family Practice 06/27/19 Winder Tender Relationship Specialty Start Date End Date Dick Ruiz MD [address] [facility] [address] [place] [address] PCP - General Family Practice 06/27/19 Winder Tender Relationship Specialty Start Date End Date Dick Ruiz MD [address] [facility] [address] [place] [address] PCP - General Family Practice 06/27/19 Winder Tender Relationship Specialty Start Date End Date Dick Ruiz MD [address] [facility] [address] [place], [place] [id number] PCP - General Family Medicine 06/27/19 Winder Tender Relationship Specialty Start Date End Date Dick Ruiz MD [address] [facility] [address] [place], [place] [address] PCP - General Family Medicine 06/27/19 Winder Tender Relationship Specialty Start Date End Date Dick Ruiz MD [address] [facility] [address] [place], [place] [id number] PCP - General Family Medicine 06/27/19 Winder Tender Relationship Specialty Start Date End Date Dick Ruiz MD [address] [place] [address] [address] [place], [place] [id number] PCP - General Family Medicine 06/27/19 FOR RECORDS PERTAINING TO PATIENTS WHO ARE OR HAVE BEEN ENROLLED IN A CHEMICAL DEPENDENCY/SUBSTANCEABUSE PROGRAM, SOME INFORMATION MAY BE OMITTED. This clinical summary was aggregated from multiple sources. Caution should be exercised in using it in the provision of clinical care. This summary normalizes information from multiple sources, and as a consequence, information in this document may materially change the coding, format and clinical context of patient data. In addition, data may be omitted in some cases. CLINICAL DECISIONS SHOULD BE BASED ON THE PRIMARY CLINICAL RECORDS. [facility]. provides no warranty or guarantee of the accuracy or completeness of information in this document.
[2023-06-28 11:07] LABS: AST(SGOT) 22 U/L (15-37); Alanine Aminotransfer ALT/SGPT 46 U/L (13-56); Albumin, Serum 3.8 g/dL (3.2-5.0); Alkaline Phosphatase 82 U/L (45-117); Anion Gap 8 (5-15); BUN 12 mg/dL (7-18); BUN/Creat Ratio 17.3 RATIO (10-20); Bilirubin, Direct 0.14 mg/dL (0.00-0.30); Calcium,Total 8.9 mg/dL (8.5-10.1); Chloride 100 mmol/L (98-107); Cholesterol 210 mg/dL (200); Creatinine, Serum 0.69 mg/dL (0.55-1.02); EST Glomerular Filtration Rate 92 mL/min (>60); Est Glom Filt Rate - Afr Amer 112 mL/min (>60); Globulin 3.4 g/dL (2.2-4.2); Glucose 122 mg/dL (74-106); High Density Lipoprotein 43 mg/dL; Potassium 3.8 mmol/L (3.5-5.1); Protein, Total 7.2 g/dL (6.4-8.2); Sodium Level 134 mmol/L (136-145); Triglycerides 134 mg/dL; Very Low Density Lipoprotein 27 mg/dL (5-40)
== END | disposition home or self-care (01) ==
PROVIDERS: PCP Family Medicine; Referring Provider Physician Assistant Medical; Visit Provider Physician Assistant Medical
DX: E78.5 Hyperlipidemia, unspecified (principal); I10 Essential (primary) hypertension
CPT/HCPCS: 36415; 80048; 80061; 80076

== ENCOUNTER → 2023-08-16 | Outpatient (CLI) | payer BC, SELFPAY ==
--- NOTE | 2023-08-16 14:38 | CT_ITS ---
STUDY: CT ORBITS WITH AND WITHOUT CONTRAST REASON FOR EXAM: Female, 58 years old. Left eye swelling and pressure for 3 months. Hypertension. RADIATION DOSAGE (If Supplied By Facility): CTDIvol = ( 29.38 ) mGy, DLP = ( 698.23 ) mGycm TECHNIQUE: The patient was scanned in a multi detector CT scanner. Transaxial imaging was performed prior to and following the administration of IV 100mL Isovue-370. Sagittal and coronal images were reconstructed. Individualized dose optimization techniques were used for this CT. COMPARISON: None. FINDINGS: Normal globes. Normal intraconal spaces. Normal optic nerve sheath complex. Normal bilateral extraocular muscles. Normal lacrimal glands. Normal bilateral medial and inferior orbital carver. Normal bilateral maxillary bones. Normal bilateral frontozygomatic arches. Normal bilateral zygomatic temporal arches. Normal frontal sinus. Mild degree of mucosal thickening of the ethmoid sinuses. Normal maxillary sinuses. Normal sphenoid sinuses. Nasal septal deviation towards the right side of the midline. Normal soft tissue structures. There is no demonstrated abnormal enhancement. CT/Orb Sella Post Fossa Ear W/WO IMPRESSION: Normal unenhanced and enhanced CT examination of the bilateral orbits. Mild degree of mucosal thickening of the ethmoid sinuses bilaterally. Nasal septal deviation towards the right side of the midline. Electronically Signed: Jack Pierre MD at 15:22 EDT ,
== END | disposition home or self-care (01) ==
LOC: CT 14:37
PROVIDERS: PCP Family Medicine; Referring Provider Ophthalmology; Visit Provider Ophthalmology
DX: H02.844 Edema of left upper eyelid (principal)
CPT/HCPCS: 70482; Q9967

== ENCOUNTER 2023-09-14 15:09 | Emergency (ER) | payer BC, SELFPAY ==
[2023-09-14] VITALS (8 sets, daily range): BP systolic 134–196; BP diastolic 70–88; PULSE 65–98; RESP 15–18; TEMP 36.6; O2SAT 96–100; BMI 35.2
--- NOTE | 2023-09-14 15:21 | EX.ED.DYSGE1 ---
HPI History of Present Illness Chief Complaint: Allergic Reaction Informant: patient and spouse/S.O. Narrative Narrative: Presents with worsening tongue swelling since last night. States she feels swelling on her throat. She was started on losartan 4 months ago by cardiology for blood pressure. Seen previously for concern for mitral valve prolapse. Other medications levothyroxine. Denies any rash or hives. Denies history of similar. Tingling to the upper lip. [facility] Medical History Hypothyroidism Abnormal electrocardiogram Obesity Nonrheumatic mitral (valve) prolapse Essential hypertension Hyperlipidemia Fatty liver History of ovarian cancer Home Medications ?Medication ?Instructions ?Recorded ?Last Taken ?Type levothyroxine 75 mcg tablet 75 mcg PO DAILY 02/01/21 Unknown History cholecalciferol (vitamin D3) 125 125 mcg PO DAILY 06/29/23 Unknown History mcg (5,000 unit) capsule mecobalamin (vitamin B12) 1,000 1,000 mcg PO DAILY 06/29/23 Unknown History mcg chewable tablet vitamin K2 100 mcg capsule 100 mcg PO DAILY 06/29/23 Unknown History metoprolol tartrate 25 mg tablet 25 mg PO BID #60 tabs 09/14/23 Unknown Rx Allergy/AdvReac Type Severity Reaction Status Date / Time losartan Allergy Severe Angioedema Verified 09/14/23 21:48 amlodipine Allergy Gingival Verified 09/14/23 15:13 enlargement ampicillin Allergy Rash Verified 09/14/23 15:13 doxycycline Allergy Unknown Verified 09/14/23 15:13 Sulfa (Sulfonamide Allergy Unknown Verified 09/14/23 15:13 Antibiotics) tetracycline (Tetracycline) Allergy Unknown Verified 09/14/23 15:13 carvedilol AdvReac Severe Marked leg Verified 09/14/23 15:13 swelling and weight gain erythromycin base AdvReac Other Verified 09/14/23 15:13 (Erythromycin Base) lisinopril AdvReac throat Verified 09/14/23 15:13 dryness Family History Mother Diabetes Heart disease Hypertension Rheumatoid arthritis Surgical History History of colonoscopy (2012) History of tonsillectomy History of total hysterectomy History of cholecystectomy History of section Social History household members: spouse Smoking Status: Never smoker alcohol intake: current alcohol intake frequency: other substance use type: does not use ROS ROS ED Constitutional Constitutional ED: Denies chills, fever(s) or sweats Eyes Eyes: Denies change in vision ENT ENT ED: Reports other Details: Tongue swelling ; Denies dysphagia or sore throat Cardiovascular Cardiovascular: Denies chest pain, leg edema, palpitations or racing heartbeat Respiratory/Chest Respiratory/Chest: Denies cough, dyspnea or dyspnea on exertion Gastrointestinal Gastrointestinal: Denies abdominal pain, diarrhea, nausea or vomiting Genitourinary Genitourinary ED: Denies dysuria, hematuria or urinary frequency Musculoskeletal Musculoskeletal: Denies back pain, extremity pain or neck pain Integumentary Denies rash or wounds Neurologic Neurologic: Denies headache(s), paresthesias or weakness EXAM Physical Exam Const Vital Signs: 09/14/23 15:10 09/14/23 16:10 09/14/23 17:00 Temperature 97.8 F Temperature Source Temporal Pulse Rate 85 65 98 Respiratory Rate 16 18 16 Blood Pressure 196/88 H 178/75 H 179/70 H Blood Pressure Mean 124 109 106 Pulse Ox 98 97 98 Oxygen Delivery Method Room Air Room Air Room Air 09/14/23 18:00 09/14/23 19:00 09/14/23 20:00 Temperature Temperature Source Pulse Rate 85 79 94 Respiratory Rate 18 15 16 Blood Pressure 156/79 H 147/76 H 174/84 H Blood Pressure Mean 104 99 114 Pulse Ox 97 98 100 Oxygen Delivery Method Room Air Room Air Room Air 09/14/23 21:00 09/14/23 22:00 09/14/23 22:00 Temperature 97.8 F Temperature Source Pulse Rate 80 80 80 Respiratory Rate 15 16 16 Blood Pressure 155/84 H 134/86 H 134/86 H Blood Pressure Mean 107 102 102 Pulse Ox 96 99 99 Oxygen Delivery Method Room Air Positive well nourished and well developed General Appearance ED: well developed and NAD HEENT Reports moist mucous membranes HEENT Narrative: No lip or gross left tongue swelling noted. No stridor. Airway patent. normocephalic and atraumatic Eyes EOMs intact bilaterally and conjunctivae normal General Eye ED: Yes normal appearance of both eyes Neck no lymphadenopathy and supple General: Negative for tenderness Chest Wall Chest: Negative for tenderness Resp normal respiratory effort and normal air movement Effort and Inspection: symmetric chest movement; Negative for respiratory distress Cardio regular rate, regular rhythm and no murmurs Peripheral Pulses: pulses 2+ throughout GI normal to inspection, nondistended, normoactive bowel sounds and non-tender Palpation: Negative for guarding or rebound tenderness present Back/Spine no CVA tenderness and no thoracic nor lumbar tenderness Extremity normal to inspection General Extremety ED: Negative for edema or tenderness General Extremity: Negative for edema Neuro oriented x3 and no sensory deficits noted Sensorium / Orientation: awake and alert Skin no rashes or lesions noted and no wounds MDM MDM MDM Narrative Medical decision making narrative: Interventions / MDM: Differential diagnosis: Diagnosis considered but do not suspect: N/A My EKG interpretation: N/A Imaging independently reviewed and interpreted by myself: N/A External documents reviewed: N/A Test considered but not ordered:N/A ED course: Patient with concerns for worsening tongue swelling. No new foods, there is no rash or hives. With concern for swelling in her throat, will give epinephrine, will give Solu-Medrol, Benadryl, Pepcid. Will reevaluate. There is no improvement with the anaphylaxis medicines. She was ordered for IV TXA 1 g. 1829: Clinically is feeling better, evaluation of her tongue objectively had some improvement from the original. Blood pressure 140s over 77 this is her typical blood pressure at home. Will continue to monitor. 1944: Reevaluation patient states he states he feels like slightly worsen. Evaluated her tongue there was no significant swelling. With her symptoms, she requesting additional Benadryl which is ordered. Will continue to monitor. 2099: Patient stabilized, no progression. She has slight headache. Tylenol p.o. ordered. Will monitor. Re-evaluation: stable Disposition discussed with patient/family/significant other: Case discussed with consulting clinician: N/A This note was generated with [employer] dictation software. It may contain incorrect words, spelling, and punctuation that were not noted in checking the note before signing. Discharge Plan Triage Chief Complaint: Allergic Reaction ED Provider: Noe Odonnell Dx/Rx/DC Orders Clinical Impression: Angioedema, Essential hypertension Instructions: ED Angioedema, ED Hypertension, Established Prescriptions: New metoprolol tartrate 25 mg tablet 25 mg PO BID Qty: 60 0RF Discontinued losartan 25 mg tablet 25 mg PO DAILY No Action mecobalamin (vitamin B12) 1,000 mcg tablet,chewable 1,000 mcg PO DAILY cholecalciferol (vitamin D3) 125 mcg (5,000 unit) capsule 125 mcg PO DAILY vitamin K2 100 mcg capsule 100 mcg PO DAILY levothyroxine 75 mcg tablet 75 mcg PO DAILY Patient Comments: TAKE 1 TABLET BY MOUTH ONCE DAILY Primary Care Provider: Dick Corrigan Referrals: Dick Corrigan MD [Primary Care Provider] - 1-2 Weeks Mariah Lopes PA [Med Staff - [facility]] - 1-2 Weeks Activity Restrictions/Additional Instructions: You had symptoms and findings of angioedema of your tongue. You improved with IV TXA. You had some also improvement with additional Benadryl. Continue Benadryl 25 to 50 mg every 6 hours. Stop your losartan. You were started on metoprolol twice a day. Follow-up with Mariah she manages your blood pressure. If your symptoms recur, return to the ED for reevaluation. Print Language: Bruneian Disposition Disposition: Home, Self Care Discharge Date/Time: 09/14/23 22:21
[2023-09-14] MEDS: DiphenhydrAMINE 50 MG/ML Syringe IV ×2 (15:28→19:57)
[2023-09-14] MEDS: MethylPREDNISolone 125 MG/2 ML Vial IV (15:28)
[2023-09-14] MEDS: Epi Pen (EQUIV) 0.3 MG Syringe IM (15:35)
[2023-09-14] MEDS: Famotidine 200 MG/20 ML MDV 20 MG in 0.9% Normal Saline (Pres. free 8 ML 300 MG IV (15:47)
[2023-09-14] MEDS: TRANEXAMIC ACID 1,000 MG in 0.9% Normal Saline (100mL Bag) 100 ML 440 MG IV (16:54)
[2023-09-14] MEDS: Acetaminophen 500 MG Tablet 1000 MG PO (21:09)
== END 2023-09-14 22:21 | disposition home or self-care (01) ==
PROVIDERS: Emergency Provider Emergency Medicine; PCP Family Medicine; Visit Provider Emergency Medicine
DX: T78.3XXA Angioneurotic edema, initial encounter (principal); I10 Essential (primary) hypertension; R51.9 Headache, unspecified; Z79.890 Hormone replacement therapy; E03.9 Hypothyroidism, unspecified; E78.5 Hyperlipidemia, unspecified; Z79.899 Other long term (current) drug therapy; X58.XXXA Exposure to other specified factors, initial encounter
CPT/HCPCS: 96365; 96366; 96368; 96375; 96376; 99283; A4216; J3490

== ENCOUNTER → 2023-12-28 | Outpatient (CLI) | payer BC, SELFPAY ==
[2023-12-28 07:42] LABS: Bacteria 0 SEEN /hpf (None Seen); Mucous, Urine 0 SEEN /hpf (<or=2+); Red Blood Cells-Urine 0 SEEN /hpf (0-5)
[2023-12-28 10:16] LABS: Absolute Lymphocyte Count 1.56 X10^3/uL (0.83-4.51); Absolute Neutrophil Count 3.2 X10^3/uL (2.0-7.7); Basophil# 0.04 X10^3/uL; Basophil% 0.8 % (0-1); Eosinophil# 0.09 X10^3/uL; Eosinophils% 1.7 % (0-5); Hematocrit 43.8 % (37-47); Hemoglobin 14.6 g/dL (12.0-15.0); Lymphocyte # 1.56 X10^3/ul (0.83-4.51); Lymphocyte % 29.3 % (19-41); Mean Corp Hgb Conc 33.3 g/dL (32-36); Mean Corpuscular Hgb 28.9 pg (27.0-32.0); Mean Corpuscular Volume 86.6 fL (81-99); Mean Platelet Vol. 8.5 fl (6.2-12.0); Monocyte# 0.46 X10^3/uL; Monocyte% 8.6 % (0-10); NRBC Flagged by Analyzer 0 % (0-5); Neutrophil # 3.16 X10^3/uL (2.7-7.7); Neutrophil % 59.2 % (47-70); Platelet Count 268 K/mm3 (150-450); RBC Distribution Width CV 12.7 % (11.6-14.6); RBC Distribution Width SD 39.8 fl (35.1-43.9); Red Blood Count 5.06 M/mm3 (4.2-5.4); White Blood Count 5.3 K/mm3 (4.4-11.0)
[2023-12-28 10:44] LABS: Cholesterol 229 mg/dL (200); High Density Lipoprotein 39 mg/dL; Triglycerides 128 mg/dL; Very Low Density Lipoprotein 26 mg/dL (5-40)
[2023-12-28 10:48] LABS: Color, Urine Yellow (Yellow); Glucose, Dipstick Normal (Normal); Ketone-Dipstick 50 mg/dl (Negative); Leukocyte Esterase-Dipstick 25 /ul (Negative); Nitrite-Dipstick Negative (Negative); Occult Blood-Urine Negative /ul (Negative); Protein-Dipstick Negative (Negative); Urine Bilirubin Dipstick Negative (Negative); Urine Clarity Sl. Cloudy (Clear); Urine Urobilinogen Normal (Normal); Urine pH 6.5 (5.0 - 8.0)
[2023-12-28 11:00] LABS: ALB/GLOB Ratio 1.1 RATIO (0.9-2.4); AST(SGOT) 22 U/L (15-37); Alanine Aminotransfer ALT/SGPT 39 U/L (13-56); Albumin, Serum 3.8 g/dL (3.2-5.0); Alkaline Phosphatase 83 U/L (45-117); Anion Gap 10 (5-15); BUN 9 mg/dL (7-18); BUN/Creat Ratio 12.9 RATIO (10-20); Bilirubin, Direct 0.17 mg/dL (0.00-0.30); Calcium,Total 9.3 mg/dL (8.5-10.1); Chloride 100 mmol/L (98-107); EST Glomerular Filtration Rate 92 mL/min (>60); Est Glom Filt Rate - Afr Amer 111 mL/min (>60); Globulin 3.5 g/dL (2.2-4.2); Glucose 121 mg/dL (74-106); Potassium 4.2 mmol/L (3.5-5.1); Protein, Total 7.3 g/dL (6.4-8.2); Sodium Level 133 mmol/L (136-145)
[2023-12-28 11:01] LABS: Squamous Epithelial Cells - UA 0-5 SEEN /hpf (5-10); White Blood Cells 0-5 SEEN /hpf (0-5)
== END | disposition home or self-care (01) ==
PROVIDERS: Physician Assistant Medical; PCP Family Medicine; Referring Provider Family Medicine; Visit Provider Family Medicine
DX: I10 Essential (primary) hypertension (principal); E78.5 Hyperlipidemia, unspecified
CPT/HCPCS: 36415; 80053; 80061; 81001; 82248; 85025

== ENCOUNTER 2024-05-20 12:39 | Observation (INO) | payer BC, SELFPAY ==
[2024-05-20] VITALS (14 sets, daily range): BP systolic 132–207; BP diastolic 58–88; PULSE 60–84; RESP 11–21; TEMP 36.3–36.8; O2SAT 95–100; BMI 32.1; BMI 32.8
--- NOTE | 2024-05-20 14:12 | RAD_ITS ---
STUDY: X-RAY CHEST REASON FOR EXAM: Female, 58 years old. Neuro deficit, acute, stroke suspected TECHNIQUE: Single AP portable view of the chest. COMPARISON: October 25, 2021 FINDINGS: No visualized consolidation or infiltrates. There are interstitial fibrotic changes of the lungs. There is no demonstrated pleural abnormality. Normal size heart. Normal mediastinum and bobby. Normal visualized pulmonary arteries. Normal visualized aortic arch and descending thoracic aorta. There are diffuse degenerative changes of the visualized thoracic spine. Normal visualized ribs, clavicles, and shoulders. There is no demonstrated abnormality of the visualized soft tissue structures of the upper abdomen. RAD/Chest 1 View IMPRESSION: Degenerative changes, as described above. No demonstrated acute cardiopulmonary process. Electronically Signed: Lg Cabral MD at 15:20 EST ,
--- NOTE | 2024-05-20 14:12 | EKG12_ITS ---
Test Reason : Blood Pressure : */* mmHG Vent. Rate : 69 BPM Atrial Rate : 69 BPM P-R Int : 178 ms QRS Dur : 90 ms QT Int : 390 ms P-R-T Axes : 70 48 31 degrees QTcB Int : 417 ms Normal sinus rhythm Nonspecific T wave abnormality Abnormal ECG Confirmed by JOSE BURGESS, JUSTIN ([id number]), acquisition editor FELIX EPPS ([id number]) on 05/22/2024 6:22:15 AM Referred By: Harry Burnham Confirmed By: JUSTIN GARCIA MD
--- NOTE | 2024-05-20 14:12 | CT_ITS ---
STUDY: CTA HEAD AND NECK WITH CONTRAST REASON FOR EXAM: Female, 58 years old. Neuro deficit, acute, stroke suspected RADIATION DOSAGE (If Supplied By Facility): CTDIvol = ( 18.10 ) mGy, DLP = ( 710.48 ) mGycm TECHNIQUE: CT angiography was performed with a multi-detector CT scanner. Data acquisition was obtained from the skull base through the vertex following intravenous administration of IV 100mL [id number]-[id number]. MIP images were reconstructed from the axial data set. Post-processing of the angiographic images was performed, with multiplanar reformation and 3D reconstruction. Individualized dose optimization techniques were used for this CT. COMPARISON: Head CT dated May 20, 2024 FINDINGS: Normal bilateral petrous carotid arteries. There is calcified plaque formation of the right cavernous carotid artery, with a mild stenosis (less than 50%). There is calcified plaque formation of the left cavernous carotid artery, with a mild stenosis (less than 50%). Normal right A1 segments of the anterior cerebral artery. Normal left A1 segments of the anterior cerebral artery. Normal intact anterior communicating artery (ACOM). Normal bilateral A2 segments of the anterior cerebral arteries. Normal right M1 and M2 segments of the middle cerebral arteries, with a normal M1 bifurcation. Normal left M1 and M2 segments of the middle cerebral arteries, with a normal M1 bifurcation. There is a persistent origin of the right posterior cerebral artery with absence of the posterior communicating artery (PCOM). There is a persistent origin of the left posterior cerebral artery with absence of the posterior communicating artery (PCOM). Normal bilateral vertebral arteries. There is tortuosity with elongation of the basilar artery. The visualized bilateral superior cerebellar (SCA) arteries are normal. Normal bilateral P1, P2 and visualized P3 segments of the posterior cerebral arteries. There is no demonstrated aneurysm of the [place]. No demonstrated thrombus or occlusion or hemodynamically significant stenosis of the major intracranial arteries. Fully patent and normal enhancement of the major intracranial venous sinuses, with no evidence of venous sinus thrombosis or occlusion. NECK CTA: AORTIC ARCH: There is atherosclerotic calcific plaque formation of the aortic arch and great vessels arising from the aortic arch, without a hemodynamically significant stenosis. There is a normal origin of the brachiocephalic, left common carotid, and left subclavian arteries. Normal origins of the brachiocephalic, left common carotid, and left subclavian arteries. RIGHT CAROTID ARTERIES: Normal right common carotid artery (CCA). Normal right common carotid bulb. Normal origin of the right internal carotid (ICA) artery without a hemodynamically significant stenosis. Normal visualized cervical portion of the right internal carotid artery. Normal origin of the right external carotid artery (ECA). LEFT CAROTID ARTERIES: Normal left common carotid artery (CCA). There is mild atherosclerotic plaque formation with minimal narrowing of the left carotid bulb. Normal origin of the left internal carotid (ICA) artery without a hemodynamically significant stenosis. Normal visualized cervical portion of the left internal carotid artery. Normal origin of the left external carotid artery (ECA). VERTEBRAL ARTERIES: Normal bilateral vertebral arteries. No demonstrated vertebral artery thrombus or occlusion or dissection. CT/STROKE CTA Head AND Neck W/Con IMPRESSION: No demonstrated large vessel occlusion (LVO) 1. Head CTA: There is no demonstrated aneurysm of the [place]. No demonstrated thrombus or occlusion or hemodynamically significant stenosis of the major intracranial arteries. Fully patent and normal enhancement of the major intracranial venous sinuses, with no evidence of venous sinus thrombosis or occlusion. 2. Neck CTA: Mild atherosclerotic plaque and minimal stenosis of the left carotid bulb of the neck 3. CT Brain Perfusion and/or MRI of the brain can be obtained for small infarcts and perforating vessel disease not detected by CT or CTA. N.B. : The above Results were Read Back by Lg Cabral MD to Harry Burnham MD, and understanding confirmed on 05/20/2024 14:54:08 (ET). Electronically Signed: Lg Cabral MD at 14:55 EST ,
--- NOTE | 2024-05-20 14:12 | CT_ITS ---
STUDY: STROKE PROTOCOL CT BRAIN WITHOUT CONTRAST REASON FOR EXAM: Female, 58 years old. Neuro deficit, acute, stroke suspected RADIATION DOSAGE (If Supplied By Facility): CTDIvol = ( ) mGy, DLP = ( ) mGycm TECHNIQUE: Transaxial CT imaging of the brain was performed without administration of intravenous contrast material. Individualized dose optimization techniques were used for this CT. COMPARISON: MRI the brain dated February 01, 2020 FINDINGS: Major intracranial venous sinuses: No abnormal hyperdensity MCA and basilar arteries assessment: No abnormal hyperdensity No visualized extra-axial fluid collection or subdural hemorrhage. Normal soft tissue structures. Normal calvarium. There is mild cerebral atrophy with widening of the extra-axial spaces and ventricular dilatation. There are areas of decreased attenuation within the white matter tracts of the supratentorial brain, consistent with microvascular disease changes. Normal basal ganglia and thalami. Normal brainstem. Normal cerebellum. There is no demonstrated sulcal effacement or parenchymal edema. There is no intracranial hemorrhage. There are no findings of an acute ischemic infarction. Normal visualized paranasal sinuses. ASPECTS Score for Acute Strokes: 10 CT/STROKE Brain/Head without Cont IMPRESSION: 1. Chronic involutional changes of the brain. 2. Concern for stroke/positive symptomatology should be further evaluated with CT brain perfusion/CTA or MRI of the brain for further assessment. N.B. : The above Results were Read Back by Lg Cabral MD to Harry Burnham MD, and understanding confirmed on 05/20/2024 14:28:22 (ET). Electronically Signed: Lg Cabral MD at 14:29 EST ,
--- NOTE | 2024-05-20 14:13 | EDS_ITS ---
HPI History of Present Illness Chief Complaint: Hypertension Informant: patient and spouse/S.O. Narrative Narrative: Patient started having numbness in her left cheek/lower face last night around 1900, felt like it was a little swollen even though she never noticed any objective swelling and neither did her . The symptoms have persisted into today. She checked her blood pressure this morning and it was over 200 which is what brought her to the hospital for evaluation. She denies any problems walking, trouble speaking, weakness or numbness in her arms or legs. She takes medication for blood pressure which she has been compliant with then that has changed recently. She takes no anticoagulants. [facility] Medical History Hypothyroidism Abnormal electrocardiogram Obesity Nonrheumatic mitral (valve) prolapse Essential hypertension Hyperlipidemia Fatty liver History of ovarian cancer Home Medications ?Medication ?Instructions ?Recorded ?Last Taken ?Type levothyroxine 75 mcg tablet 75 mcg PO DAILY 02/01/21 Unknown History cholecalciferol (vitamin D3) 125 125 mcg PO DAILY 06/29/23 Unknown History mcg (5,000 unit) capsule vitamin K2 100 mcg capsule 100 mcg PO DAILY 06/29/23 Unknown History atenolol 25 mg tablet 25 mg PO DAILY #90 tabs 10/25/23 Unknown Rx Allergy/AdvReac Type Severity Reaction Status Date / Time losartan Allergy Severe Angioedema Verified 05/20/24 12:44 amlodipine Allergy Gingival Verified 05/20/24 12:44 enlargement ampicillin Allergy Rash Verified 05/20/24 12:44 doxycycline Allergy Unknown Verified 05/20/24 12:44 Sulfa (Sulfonamide Allergy Unknown Verified 05/20/24 12:44 Antibiotics) tetracycline (Tetracycline) Allergy Unknown Verified 05/20/24 12:44 carvedilol AdvReac Severe Marked leg Verified 05/20/24 12:44 swelling and weight gain erythromycin base AdvReac Other Verified 05/20/24 12:44 (Erythromycin Base) lisinopril AdvReac throat Verified 05/20/24 12:44 dryness Family History Mother Diabetes Heart disease Hypertension Rheumatoid arthritis Surgical History History of colonoscopy (2012) History of tonsillectomy History of total hysterectomy History of cholecystectomy History of section Social History household members: spouse Smoking Status: Never smoker alcohol intake: current alcohol intake frequency: other substance use type: does not use ROS ROS ED Constitutional Constitutional ED: Denies chills or fever(s) Eyes Eyes: Reports blurry vision bilateral (For a little while, unchanged now compared with several days ago); Denies change in vision or diplopia ENT ENT ED: Denies rhinorrhea or sore throat Cardiovascular Cardiovascular: Denies chest pain or palpitations Respiratory/Chest Respiratory/Chest: Denies cough or dyspnea Gastrointestinal Gastrointestinal: Denies abdominal pain, diarrhea, nausea or vomiting Genitourinary Genitourinary ED: Denies dysuria or hematuria Musculoskeletal Musculoskeletal: Denies back pain or neck pain Integumentary Denies abscess or rash Neurologic Neurologic: Reports paresthesias; Denies headache(s) or weakness Psychiatric Psychiatric: Denies anxiety or suicidal thoughts EXAM Physical Exam Const Vital Signs: 05/20/24 12:40 05/20/24 13:33 05/20/24 13:40 Temperature 97.4 F L Temperature Source Temporal Pulse Rate 82 69 Respiratory Rate 16 15 Respiratory Effort Normal Respiratory Pattern Normal Blood Pressure 207/82 H 177/85 H Blood Pressure Mean 123 115 Pulse Ox 97 100 Oxygen Delivery Method Room Air Room Air 05/20/24 13:45 05/20/24 14:00 05/20/24 14:12 Temperature Temperature Source Pulse Rate 72 79 78 Respiratory Rate 11 L 14 16 Respiratory Effort Respiratory Pattern Blood Pressure 184/86 H 207/88 H 207/88 H Blood Pressure Mean 114 118 127 Pulse Ox 96 97 99 Oxygen Delivery Method Room Air 05/20/24 14:17 05/20/24 14:27 05/20/24 14:42 Temperature Temperature Source Pulse Rate 84 69 Respiratory Rate 21 H 18 Respiratory Effort Respiratory Pattern Blood Pressure 172/77 H 152/58 H Blood Pressure Mean 108 89 Pulse Ox 96 100 99 Oxygen Delivery Method Room Air Room Air Room Air 05/20/24 15:12 05/20/24 15:18 05/20/24 15:30 Temperature 98.0 F 98 F Temperature Source Oral Pulse Rate 63 66 66 Respiratory Rate 15 15 19 H Respiratory Effort Respiratory Pattern Blood Pressure 132/68 H 132/68 H 153/69 H Blood Pressure Mean 89 89 97 Pulse Ox 97 98 99 Oxygen Delivery Method Room Air Room Air Positive well nourished and well developed General Appearance ED: well developed and NAD HEENT Reports moist mucous membranes HEENT Narrative: No facial asymmetry/edema. Normal tongue no edema. No stridor. normocephalic and atraumatic Eyes PERRL and EOMs intact bilaterally Neck full ROM and supple Resp normal respiratory effort and clear to auscultation bilaterally Cardio regular rate, regular rhythm and no murmurs GI non-tender and non-distended Auscultation: normoactive bowel sounds Palpation: soft Back/Spine no CVA tenderness General Back: other FROM Extremity normal to inspection General Extremety ED: Negative for edema, pulses abnormal or tenderness General Extremity: Negative for edema or pulses abnormal Neuro oriented x3, CN's II-XII intact bilaterally and no sensory deficits noted Neuro Narrative: No aphasia or dysarthria. There is decreased sensation to left cheek, not the forehead. There is no asymmetry with motor function throughout the face. No dysmetria. Sensorium / Orientation: awake and alert Motor Exam: strength 5/5 throughout Psych mental status grossly normal Skin no rashes or lesions noted and no wounds NIHSS NIHSS Initial: 1a Level of Consciousness: 0 1b LOC Questions (Score 2 if aphasic/stupor): 0 1c LOC Commands (Only score 1st attempt): 0 2 Best Gaze (If aphasic, use reflexive mvmts.): 0 3 Visual: 0 4 Facial Palsy: 0 5 Motor Arm Right (UN = amputation/fusion): 0 5 Motor Arm Left: 0 6 Motor Leg Right: 0 6 Motor Leg Left: 0 7 Limb ataxia (Only + if out of proportion): 0 8 Sensory (Aphasia/stupor=0 or 1, coma=2): 1 9 Best Language: 0 10 Dysarthria (mute, coma=2, intubated=UN): 0 11 Extinction and Inattention (only scored if +): 0 Total Score: 1 MDM MDM MDM Narrative Medical decision making narrative: Upon seeing the patient and her NIH is only 1 due to the numbness, but she still has symptoms and they started within the last 24 hours. She is outside of thrombolytic time window, but for these reasons, stroke alert was called in order to get a rapid CT and CT angiography of the brain. Brain met of rare cancer patient had in the past, ovarian, is also in the differential. I reviewed the CT of the head and the CT angiography of the brain and neck, and spoke with the radiologist about both. I agree with his interpretation that the CT of the head is negative for any acute including hemorrhage. I also agree that the CTA is negative for LVO. I spoke with stroke neurology they recommended treating her blood pressure if it is still over 200 with a goal 160, considering hypertensive emergency/urgency as a cause rather than affect; however on reevaluation prior to treating her with anything, it is 132/80. I am going to continue to watch it. My concern is that this could be central etiology given her left lower facial symptoms, especially in context of very high blood pressure more than 1 reading. Also given the differential of a brain met, I think admitting her to observation for further workup including MRI is indicated. Stroke neurology was in agreement, recommending that an MRI brain with and without contrast be obtained in this context. Lab Data Attestation: I reviewed the patient's lab results. Labs: Laboratory Results - last 24 hr 05/20/24 05/20/24 05/20/24 13:28 14:15 14:32 WBC 4.9 RBC 4.71 Hgb 13.8 Hct 41.3 MCV 87.7 MCH 29.3 MCHC 33.4 RDW Std Deviation 40.9 RDW Coeff of Nestor 12.6 Plt Count 244 MPV 8.6 Immature Gran % (Auto) 0.400 Neut % (Auto) 62.2 Lymph % (Auto) 31.3 Sawyer % (Auto) 5.1 Eos % (Auto) 0.8 Baso % (Auto) 0.2 Absolute Neuts (auto) 3.1 Absolute Lymphs (auto) 1.54 Nucleated RBC % 0 PT 16.3 H INR 1.3 APTT 24.3 Sodium 137 Potassium 3.5 Chloride 104 Carbon Dioxide 25.0 Anion Gap 8 BUN 10 Creatinine 0.73 Estim Creat Clear Calc 88.61 Est GFR (MDRD) Af Amer 105 Est GFR (MDRD) Non-Af 87 BUN/Creatinine Ratio 13.7 Glucose 131 H Calcium 9.4 Troponin I High Sens < 3 L POC Glucose 109 H Radiography Diagnostic Testing: Clinical Impression(s) from Imaging Studies Brain CT 05/20/24 14:12 IMPRESSION: 1. Chronic involutional changes of the brain. 2. Concern for stroke/positive symptomatology should be further evaluated with CT brain perfusion/CTA or MRI of the brain for further assessment. N.B. : The above Results were Read Back by Lg Cabral MD to Harry Burnham MD, and understanding confirmed on 05/20/2024 14:28:22 (ET). Electronically Signed: Lg Cabral MD at 14:29 EST , ADDENDUM: 05/20/24 1436 IMPRESSION: 1. Chronic involutional changes of the brain. 2. Concern for stroke/positive symptomatology should be further evaluated with CT brain perfusion/CTA or MRI of the brain for further assessment. N.B. : The above Results were Read Back by Lg Cabral MD to Harry Burnham MD, and understanding confirmed on 05/20/2024 14:28:22 (ET). Electronically Signed: Lg Cabral MD at 14:29 EST , Chest X-Ray 05/20/24 14:12 IMPRESSION: Degenerative changes, as described above. No demonstrated acute cardiopulmonary process. Electronically Signed: Lg Cabral MD at 15:20 EST , Head/Neck CTA 05/20/24 14:12 IMPRESSION: No demonstrated large vessel occlusion (LVO) 1. Head CTA: There is no demonstrated aneurysm of the [place]. No demonstrated thrombus or occlusion or hemodynamically significant stenosis of the major intracranial arteries. Fully patent and normal enhancement of the major intracranial venous sinuses, with no evidence of venous sinus thrombosis or occlusion. 2. Neck CTA: Mild atherosclerotic plaque and minimal stenosis of the left carotid bulb of the neck 3. CT Brain Perfusion and/or MRI of the brain can be obtained for small infarcts and perforating vessel disease not detected by CT or CTA. N.B. : The above Results were Read Back by Lg Cabral MD to Harry Burnham MD, and understanding confirmed on 05/20/2024 14:54:08 (ET). Electronically Signed: Lg Cabral MD at 14:55 EST , ADDENDUM: 05/20/24 1502 IMPRESSION: No demonstrated large vessel occlusion (LVO) 1. Head CTA: There is no demonstrated aneurysm of the [place]. No demonstrated thrombus or occlusion or hemodynamically significant stenosis of the major intracranial arteries. Fully patent and normal enhancement of the major intracranial venous sinuses, with no evidence of venous sinus thrombosis or occlusion. 2. Neck CTA: Mild atherosclerotic plaque and minimal stenosis of the left carotid bulb of the neck 3. CT Brain Perfusion and/or MRI of the brain can be obtained for small infarcts and perforating vessel disease not detected by CT or CTA. N.B. : The above Results were Read Back by Lg Cabral MD to Harry Burnham MD, and understanding confirmed on 05/20/2024 14:54:08 (ET). Electronically Signed: Lg Cabral MD at 14:55 EST , Rhythm Strip Rhythm Strip: Sinus Rhythm Rate: 69 Ectopy: None EKG Initial EKG: Attestation: I personally reviewed and interpreted this EKG as follows: Interpretation: Sinus Rhythm, No Acute Injury Pattern and Non-Specific ST Changes Management Discussion w/another healthcare provider: Hospitalist, Heel Reducer (Stroke neurology: Recommends treating blood pressure with goal of 160) and Radiologist Critical Care Time Critical Care Time: Yes Critical care time (excluding procedures): 30-74 minutes (33 min), Including time spent:, Discussing w/Patient &/or Family/Lap Regulator, Discussing w/Consultants, Arranging Admission or Transfer and Performing Direct Patient Care at Bedside Discharge Plan Dx/Rx/DC Orders Clinical Impression: Left facial numbness, Accelerated hypertension Disposition Disposition: Acute Care Hospital [facility] Stroke Documentation Questions Stroke Team Activated: Yes Was Patient considered for Endovascular Intervention?: No-CTA negative, determined not to be an endovascular candidate IV Thrombolytic Administered: No (Due to timing)
[2024-05-20 14:28] LABS: Absolute Lymphocyte Count 1.54 X10^3/uL (0.83-4.51); Absolute Neutrophil Count 3.1 X10^3/uL (2.0-7.7); Basophil# 0.01 X10^3/uL; Basophil% 0.2 % (0-1); Eosinophil# 0.04 X10^3/uL; Eosinophils% 0.8 % (0-5); Hematocrit 41.3 % (37-47); Hemoglobin 13.8 g/dL (12.0-15.0); Lymphocyte # 1.54 X10^3/ul (0.83-4.51); Lymphocyte % 31.3 % (19-41); Mean Corp Hgb Conc 33.4 g/dL (32-36); Mean Corpuscular Hgb 29.3 pg (27.0-32.0); Mean Corpuscular Volume 87.7 fL (81-99); Mean Platelet Vol. 8.6 fl (6.2-12.0); Monocyte# 0.25 X10^3/uL; Monocyte% 5.1 % (0-10); NRBC Flagged by Analyzer 0 % (0-5); Neutrophil # 3.06 X10^3/uL (2.7-7.7); Neutrophil % 62.2 % (47-70); Platelet Count 244 K/mm3 (150-450); RBC Distribution Width CV 12.6 % (11.6-14.6); RBC Distribution Width SD 40.9 fl (35.1-43.9); Red Blood Count 4.71 M/mm3 (4.2-5.4); White Blood Count 4.9 K/mm3 (4.4-11.0)
[2024-05-20 14:52] LABS: International Normalized Ratio 1.3; Partial Thromboplast Time 24.3 Seconds (24.1-36.2); Prothrombin Time (Protime)PT. 16.3 SECONDS (11.7-14.9)
--- NOTE | 2024-05-20 14:52 | CHAPLAIN ---
Type of Pastoral Visit ___ Initial Visit ___ Follow-up Visit ___ On-call Visit ___ General Patient Visit ___ Spiritual Assessment ___ Family Conference ___ Bereavement ___ Rapid Response ___ Code Blue ___ Other (describe below) Pastoral Care Referral From ___ Patient ___ Family ___ Nurse ___ Physician ___ Biodiesel Engineering Manager ___ Marketing Data Specialist ___ Other (describe below) Sacrament/Intervention ___ Active listening ___ Anointing ___ Congregation ___ Bereavement ___ Communion ___ Monie exploration ___ ___ Life review ___ Prayer ___ Reconciliation ___ Sacrament of Sick ___ Supportive presence ___ Wedding ___ Other (describe below) Pastoral Comments Stroke alert was called and this wire wheeler went to room but the patient was in CatScan; latter this wire wheeler checked on patient and she was being assisted by staff but the stroke alert was being cancelled; pt was able to ambulate to the bathroom and was talking; no family members were present at this time
[2024-05-20 14:54] LABS: Bedside Glucose 109 mg/dL (74-106)
[2024-05-20 14:55] LABS: Anion Gap 8 (5-15); BUN 10 mg/dL (7-18); BUN/Creat Ratio 13.7 RATIO (10-20); Calcium,Total 9.4 mg/dL (8.5-10.1); Chloride 104 mmol/L (98-107); Creatinine, Serum 0.73 mg/dL (0.55-1.02); EST Glomerular Filtration Rate 87 mL/min (>60); Est Glom Filt Rate - Afr Amer 105 mL/min (>60); Estimated Creatinine Clearance 88.61 ml/min; Glucose 131 mg/dL (74-106); Potassium 3.5 mmol/L (3.5-5.1); Sodium Level 137 mmol/L (136-145); Troponin-I HS < 3 pg/mL (3.0-54.0)
--- NOTE | 2024-05-20 15:40 | PCM.HP.STD ---
HPI - General General Date of Admission: 05/20/24 Date of Service: 05/20/24 Chief Complaint: Left facial numbness with mild swelling and elevated blood pressure HPI Narrative TACOS GOODE, is a 58 F who presented to [facility] ED with left facial numbness with mild swelling and elevated blood pressure. The symptoms started around 7 PM last night and then persisted into today. She checked her blood pressure this morning and it was over 200 systolic, so she came in for further evaluation. Patient has history of hypertension and hyperlipidemia, follows with [facility]. Was previously on losartan but had an episode about 6 months ago concerning for possible angioedema so losartan was discontinued and she was started on atenolol. She takes her blood pressure occasionally at home and notes that it typically runs in the 130s to 140s systolic. She is never had a reading higher than 170 she states. In the ED her initial blood pressure was 207/82. NIHSS score of 1. CT brain and CTA head/neck were unremarkable. Prior to giving any antihypertensive medication, blood pressure improved to the 130s systolic. Case was discussed with teleneurology and given her elevated blood pressure and facial numbness with risk factors, hospitalist was contacted for admission for stroke rule out. I saw the patient at bedside in the ED, was present. Patient was sitting up comfortably in bed, conversing normally, in no acute distress. She reported left sided facial swelling with mild numbness. She was more concerned about the swelling and numbness for me. On my exam, she appeared to have very mild left cheek swelling. No facial droop or facial weakness noted. No swelling of the palate noted on exam. She denied any upper or lower extremity weakness or numbness/tingling. No other acute concerns this time. [facility] Medical History Hypothyroidism Abnormal electrocardiogram Obesity Nonrheumatic mitral (valve) prolapse Essential hypertension Hyperlipidemia Fatty liver History of ovarian cancer Home Medications ?Medication ?Instructions ?Recorded ?Last Taken ?Type levothyroxine 75 mcg tablet 75 mcg PO DAILY 02/01/21 05/20/24 History cholecalciferol (vitamin D3) 125 125 mcg PO DAILY 06/29/23 Unknown History mcg (5,000 unit) capsule vitamin K2 100 mcg capsule 100 mcg PO DAILY 06/29/23 Unknown History atenolol 25 mg tablet 25 mg PO .dailyQHS HR 05/20/24 05/19/24 History Allergy/AdvReac Type Severity Reaction Status Date / Time losartan Allergy Severe Angioedema Verified 05/20/24 12:44 amlodipine Allergy Gingival Verified 05/20/24 12:44 enlargement ampicillin Allergy Rash Verified 05/20/24 12:44 doxycycline Allergy Unknown Verified 05/20/24 12:44 Sulfa (Sulfonamide Allergy Unknown Verified 05/20/24 12:44 Antibiotics) tetracycline (Tetracycline) Allergy Unknown Verified 05/20/24 12:44 carvedilol AdvReac Severe Marked leg Verified 05/20/24 12:44 swelling and weight gain erythromycin base AdvReac Other Verified 05/20/24 12:44 (Erythromycin Base) lisinopril AdvReac throat Verified 05/20/24 12:44 dryness Family History Mother Diabetes Heart disease Hypertension Rheumatoid arthritis Surgical History (Updated 05/20/24 @ 17:07 by Felipa Laguerre) S/P carpal tunnel release History of colonoscopy (2012) History of tonsillectomy History of total hysterectomy History of cholecystectomy History of section Social History household members: spouse Smoking Status: Never smoker alcohol intake: current alcohol intake frequency: other substance use type: does not use ROS Constitutional Constitutional: Denies chills, fatigue, fever(s) or weakness Eyes Eyes: Denies blurry vision, change in vision or double vision Cardiovascular Cardiovascular: Denies chest pain Respiratory/Chest Respiratory/Chest: Denies shortness of breath at rest Gastrointestinal Gastrointestinal: Denies abdominal pain Musculoskeletal Musculoskeletal: Denies arthralgias or myalgias Neurologic Neurologic: Reports numbness; Denies abnormal gait, abnormal speech, confusion, dizziness, focal weakness, headache(s), paresthesias or tingling Vital Signs Vital Signs Vital Signs: 05/20/24 12:40 05/20/24 13:33 05/20/24 13:40 Temperature 97.4 F L Temperature Source Temporal Pulse Rate 82 69 Respiratory Rate 16 15 Respiratory Effort Normal Respiratory Pattern Normal Blood Pressure 207/82 H 177/85 H Blood Pressure Mean 123 115 Pulse Ox 97 100 Oxygen Delivery Method Room Air Room Air 05/20/24 13:45 05/20/24 14:00 05/20/24 14:12 Temperature Temperature Source Pulse Rate 72 79 78 Respiratory Rate 11 L 14 16 Respiratory Effort Respiratory Pattern Blood Pressure 184/86 H 207/88 H 207/88 H Blood Pressure Mean 114 118 127 Pulse Ox 96 97 99 Oxygen Delivery Method Room Air 05/20/24 14:17 05/20/24 14:27 05/20/24 14:42 Temperature Temperature Source Pulse Rate 84 69 Respiratory Rate 21 H 18 Respiratory Effort Respiratory Pattern Blood Pressure 172/77 H 152/58 H Blood Pressure Mean 108 89 Pulse Ox 96 100 99 Oxygen Delivery Method Room Air Room Air Room Air 05/20/24 15:12 05/20/24 15:18 Temperature 98.0 F Temperature Source Pulse Rate 63 66 Respiratory Rate 15 15 Respiratory Effort Respiratory Pattern Blood Pressure 132/68 H 132/68 H Blood Pressure Mean 89 89 Pulse Ox 97 98 Oxygen Delivery Method Room Air Weight Weight: 85 kg Body Mass Index (BMI) 32.1 Physical Exam Const alert, oriented x3 and no apparent distress Constitutional Narrative: Middle-age female, class I obesity, sitting up comfortably in bed, conversing normally, in no acute distress. General Appearance: cooperative and comfortable HEENT normocephalic, head/scalp atraumatic, hearing grossly normal bilaterally, nasal mucous membranes and turbinates normal and moist oral mucous membranes HEENT Narrative: Very mild left cheek swelling noted. Eyes PERRL, EOMs intact bilaterally and conjunctivae normal Neck full ROM Chest inspection of chest normal Resp normal respiratory effort, normal air movement, no use of accessory muscles and clear to auscultation bilaterally Cardio regular rate, regular rhythm, no murmurs and peripheral pulses 2+ throughout GI normal to inspection, nondistended, normoactive bowel sounds, soft to palpation, non-tender and non-distended Back/Spine normal ROM Extremity normal to inspection, full ROM and no pedal edema Skin no rashes or lesions noted Neuro CN's II-XII intact bilaterally, moves all extremities and no focal motor deficits Speech: speech normal Motor Exam: strength 5/5 throughout Psych mental status grossly normal Mood & Affect: anxious Results Lab / Micro Data 05/20/24 13:28 05/20/24 13:28 Labs: Laboratory Results - last 24 hr 05/20/24 13:28: WBC 4.9, RBC 4.71, Hgb 13.8, Hct 41.3, MCV 87.7, MCH 29.3, MCHC 33.4, RDW Std Deviation 40.9, RDW Coeff of Nestor 12.6, Plt Count 244, MPV 8.6, Immature Gran % (Auto) 0.400, Neut % (Auto) 62.2, Lymph % (Auto) 31.3, Smith % (Auto) 5.1, Eos % (Auto) 0.8, Baso % (Auto) 0.2, Absolute Neuts (auto) 3.1, Absolute Lymphs (auto) 1.54, Nucleated RBC % 0, Sodium 137, Potassium 3.5, Chloride 104, Carbon Dioxide 25.0, Anion Gap 8, BUN 10, Creatinine 0.73, Estim Creat Clear Calc 88.61, Est GFR (MDRD) Af Amer 105, Est GFR (MDRD) Non-Af 87, BUN/Creatinine Ratio 13.7, Glucose 131 H, Calcium 9.4, Troponin I High Sens < 3 L 05/20/24 14:15: PT 16.3 H, INR 1.3, APTT 24.3 05/20/24 14:32: POC Glucose 109 H Rhythm Strip Rhythm Strip: Sinus Rhythm Rate: 69 Ectopy: None Imaging Radiology Impression Brain CT 05/20/24 14:12 IMPRESSION: 1. Chronic involutional changes of the brain. 2. Concern for stroke/positive symptomatology should be further evaluated with CT brain perfusion/CTA or MRI of the brain for further assessment. N.B. : The above Results were Read Back by Lg Cabral MD to Harry Burnham MD, and understanding confirmed on 05/20/2024 14:28:22 (ET). Electronically Signed: Lg Cabral MD at 14:29 EST Reading Location ID and State: [facility] / [place] , Service support , ADDENDUM: 05/20/24 2851 IMPRESSION: 1. Chronic involutional changes of the brain. 2. Concern for stroke/positive symptomatology should be further evaluated with CT brain perfusion/CTA or MRI of the brain for further assessment. N.B. : The above Results were Read Back by Lg Cabral MD to Harry Burnham MD, and understanding confirmed on 05/20/2024 14:28:22 (ET). Electronically Signed: Lg Cabral MD at 14:29 EST , Chest X-Ray 05/20/24 14:12 IMPRESSION: Degenerative changes, as described above. No demonstrated acute cardiopulmonary process. Electronically Signed: Lg Cabral MD at 15:20 EST , Head/Neck CTA 05/20/24 14:12 IMPRESSION: No demonstrated large vessel occlusion (LVO) 1. Head CTA: There is no demonstrated aneurysm of the [place]. No demonstrated thrombus or occlusion or hemodynamically significant stenosis of the major intracranial arteries. Fully patent and normal enhancement of the major intracranial venous sinuses, with no evidence of venous sinus thrombosis or occlusion. 2. Neck CTA: Mild atherosclerotic plaque and minimal stenosis of the left carotid bulb of the neck 3. CT Brain Perfusion and/or MRI of the brain can be obtained for small infarcts and perforating vessel disease not detected by CT or CTA. N.B. : The above Results were Read Back by Lg Cabral MD to Harry Burnham MD, and understanding confirmed on 05/20/2024 14:54:08 (ET). Electronically Signed: Lg Cabral MD at 14:55 EST , ADDENDUM: 05/20/24 1502 IMPRESSION: No demonstrated large vessel occlusion (LVO) 1. Head CTA: There is no demonstrated aneurysm of the [place]. No demonstrated thrombus or occlusion or hemodynamically significant stenosis of the major intracranial arteries. Fully patent and normal enhancement of the major intracranial venous sinuses, with no evidence of venous sinus thrombosis or occlusion. 2. Neck CTA: Mild atherosclerotic plaque and minimal stenosis of the left carotid bulb of the neck 3. CT Brain Perfusion and/or MRI of the brain can be obtained for small infarcts and perforating vessel disease not detected by CT or CTA. N.B. : The above Results were Read Back by Lg Cabral MD to Harry Burnham MD, and understanding confirmed on 05/20/2024 14:54:08 (ET). Electronically Signed: Lg Cabral MD at 14:55 EST , Assessment & Plan Assessment/Plan (1) Left facial numbness: (2) Accelerated hypertension: PLAN: Plan Patient is a 58-year-old female who presented [facility] ED on 05/20/2024 with left facial numbness and hypertension concerning for stroke. 1. Left facial numbness and swelling, CVA rule out ? Admit under observation status to PCU. Teleneurology consulted. Orders placed per stroke protocol order set. CT brain and CTA head/neck unremarkable. MRI brain ordered. Has had prior echoes but none with bubble study, so echo with bubble study ordered. Lipid panel, A1c and TSH ordered. Notably has had elevated cholesterol numbers on last 2 lipid panels, has been treating with diet modifications. PT/OT/case management consulted. 2. Reported history of angioedema ? Patient was seen in the ED in August 2023 for this. Presented with reported tongue swelling, had been on losartan for about 4 months. Was given epinephrine, Solu-Medrol, Benadryl and Pepcid and patient reported improvement, though ED physician noted it was difficult to ascertain if her tongue size had changed. Patient reports concern for recurrent angioedema with her left facial swelling here; has no tongue swelling or swelling of palate and is breathing comfortably, very low concern for angioedema. 3. Hypertension ? Hypertensive to the low 200s systolic in the ED but improved to the 130s without medication. Stroke workup as above. Holding home atenolol for permissive hypertension. Chronic medical conditions: ? Class I obesity: BMI 32 on admit. Complicates hospital course, care and prognosis. ? Hyperlipidemia: Last lipid panel in December showed total cholesterol 229, LDL 164, HDL 39. Prior lipid panel in June 2023 was slightly improved from this. Repeat fasting lipid panel ordered as above. ? Hypothyroidism: TSH normal on admit. Continue home Synthroid. ? History of ovarian cancer DVT prophylaxis: SCDs CODE STATUS: Full code, verified Expect disposition: Home, 1 to 2 days Total clinical time spent by myself addressing the patient's medical issues, reviewing all the data, and collaborating with patient's care team: 55 minutes. Charges/Coding Visit Charges Inpatient E&M: 25840 Init Hosp L2
--- NOTE | 2024-05-20 15:47 | ECHOD_ITS ---
Reason For Study: TIA/Stroke Procedure This was a 2D Doppler, Color Flow transthoracic echocardiogram. Exam performed portable in patient room. Left Ventricle Normal LV size. The estimated ejection fraction is 65 %. Diastolic function is indeterminate. No regional wall motion abnormalities noted. Right Ventricle Normal RV size. Normal systolic function. Atria The left and right atria are normal. Bubble contrast study negative for right to left interatrial shunt. No doppler evidence for ASD. Mitral Valve There is no mitral valve stenosis. Trivial mitral valve insufficiency. Tricuspid Valve There is no tricuspid stenosis. Trivial tricuspid valve insufficiency. Pulmonary artery systolic pressure is 30 mmHg. Aortic Valve There is no aortic stenosis. Mild (1+) aortic valve insufficiency. Pulmonic Valve There is no pulmonic valvular stenosis. No pulmonic valve insufficiency. Great Vessels Normal aortic root. Pericardium/Pleural No pericardial effusion. Medication Performed a rapid injection of agitated mix of 9 cc saline and 1cc air to assess for atrial septal defect. MMode/2D Measurements & Calculations LVIDd: 4.1 cm IVSd: 1.2 cm Ao root diam: 3.1 cm LVIDs: 2.3 cm LVPWd: 1.1 cm RVDd: 3.7 cm FS: 43.0 % LAV(MOD-bp): 45.7 ml LVAd ap4: 17.7 cm2 SV(MOD-sp4): 27.4 ml LAV(MOD-bp) Indexed: 24.0 ml/m2 LVLd ap4: 6.7 cm SI(MOD-sp4): 14.4 ml/m2 LAV(MOD-sp2): 40.4 ml EDV(MOD-sp4): 39.9 ml LAV(MOD-sp4): 48.6 ml EDV(sp4-el): 40.1 ml LVAs ap4: 8.9 cm2 LVLs ap4: 5.6 cm ESV(MOD-sp4): 12.4 ml ESV(sp4-el): 12.0 ml EF(MOD-sp4): 68.8 % EF(sp4-el): 70.0 % SV(sp4-el): 28.1 ml LA A4 area: 18.3 cm2 LA dimension(2D): 4.2 cm RA A4 area: 10.3 cm2 TAPSE: 2.3 cm Time Measurements MV dec time: 0.15 sec Doppler Measurements & Calculations MV E max petey: 85.1 cm/sec Lat Peak E' Petey: 9.6 cm/sec Med Peak E' Petey: 5.2 cm/sec MV A max petey: 73.4 cm/sec E/E' lat: 8.8 E/E' med: 16.5 MV E/A: 1.2 MV dec slope: 592.9 cm/sec2 Ao V2 max: 161.8 cm/sec AI max petey: 414.9 cm/sec Ao max P.5 mmHg AI max P.9 mmHg Ao V2 mean: 108.1 cm/sec AI dec slope: 206.7 cm/sec2 Ao mean P.4 mmHg AI P1/2t: 587.8 msec Ao V2 VTI: 36.5 cm AV (velocity ratio): 0.84 LV V1 max: 135.9 cm/sec PA V2 max: 102.9 cm/sec TR max petey: 258.1 cm/sec LV V1 max P.4 mmHg TR max P.6 mmHg LV V1 mean P.7 mmHg LV V1 mean: 89.0 cm/sec LV V1 VTI: 30.7 cm ECHO/Echo Complete Interpretation Summary The estimated ejection fraction is 65 %. Diastolic function is indeterminate. Trivial mitral valve insufficiency. Mild (1+) aortic valve insufficiency. Ordering Physician: Misha Morgan Referring Physician: Dick Corrigan Performed By: Tierra Aggarwal RDCS, RVT
--- NOTE | 2024-05-20 15:47 | MRI_ITS ---
EXAM: MR HEAD WITHOUT INTRAVENOUS CONTRAST CLINICAL INDICATION: eval for CVA TECHNIQUE: Multiplanar and multisequence MR images of the brain were obtained without intravenous contrast. COMPARISON: February 01, [address] and CTA today mentioned chronic changes. FINDINGS: BRAIN AND EXTRA-AXIAL SPACES: No restricted diffusion to suggest acute CVA. There are similar scattered high signal foci in the subcortical frontal lobes on T2 weighted inversion recovery images compared to 2019. No intra- or extra-axial hemorrhage. No evidence of acute infarct. No intracranial mass or mass effect. There is preservation of the hardy/white matter interface. Posterior fossa structures are unremarkable. Ventricles are appropriate for age. No hydrocephalus. Basal cisterns are patent. SELLA: Unremarkable. Normal sella turcica, pituitary gland, infundibular stalk, optic chiasm and hypothalamus. AUDITORY SYSTEM: Unremarkable. The internal auditory canals are patent. BONES/JOINTS: Small vertebrobasilar system and origin of the epilepsy physician similar to prior exam. No discrete lytic or blastic abnormalities. SINUSES: The paranasal sinuses appear unremarkable. MASTOID AIR CELLS: There is some minimal high T2 fluid signal intensity in the inferior mastoids, similar to prior exam. ORBITS: Unremarkable as visualized. Both globes, extraocular muscles, optic nerves and retrobulbar fat appear unremarkable. VASCULATURE: See above. MRI/Brain without Contrast IMPRESSION: 1. No acute CVA or other specific acute abnormality. 2. Several scattered high signal T2-inversion recovery cortical foci, nonspecific, similar to 2020. These can be seen with migraines, microvascular disease, sequela of demyelinating disease. Electronically Signed: Neetu Mack MD at 23:28 EST ,
[2024-05-20 16:34] LABS: Thyroid Stim Hormone (TSH) 0.964 uIU/mL (0.358-3.740)
[2024-05-20 16:39] LABS: Hemoglobin A1c 6.6 % (3.8-5.6)
[2024-05-20] MEDS: 0.9% Saline Lock 10 ML Syringe IV (21:28)
[2024-05-20] MEDS: Acetaminophen 325 MG Tablet 650 MG PO (21:33)
[2024-05-21 01:50] VITALS: BP 114/69; PULSE 55; RESP 15; TEMP 36.4; O2SAT 95
[2024-05-21 02:51] VITALS: BMI 32.8
[2024-05-21 05:59] VITALS: BP 152/79; PULSE 64; RESP 15; TEMP 36.4; O2SAT 100
[2024-05-21] MEDS: Levothyroxine 75 MCG Tablet PO (06:04)
[2024-05-21 08:00] LABS: Absolute Lymphocyte Count 1.47 X10^3/uL (0.83-4.51); Absolute Neutrophil Count 1.9 X10^3/uL (2.0-7.7); Basophil# 0.03 X10^3/uL; Basophil% 0.8 % (0-1); Eosinophil# 0.09 X10^3/uL; Eosinophils% 2.4 % (0-5); Hematocrit 41.7 % (37-47); Hemoglobin 13.8 g/dL (12.0-15.0); Lymphocyte # 1.47 X10^3/ul (0.83-4.51); Lymphocyte % 39.7 % (19-41); Mean Corp Hgb Conc 33.1 g/dL (32-36); Mean Corpuscular Hgb 29.6 pg (27.0-32.0); Mean Corpuscular Volume 89.5 fL (81-99); Mean Platelet Vol. 8.5 fl (6.2-12.0); Monocyte# 0.23 X10^3/uL; Monocyte% 6.2 % (0-10); NRBC Flagged by Analyzer 0 % (0-5); Neutrophil # 1.87 X10^3/uL (2.7-7.7); Neutrophil % 50.6 % (47-70); Platelet Count 234 K/mm3 (150-450); RBC Distribution Width CV 12.8 % (11.6-14.6); RBC Distribution Width SD 41.4 fl (35.1-43.9); Red Blood Count 4.66 M/mm3 (4.2-5.4); White Blood Count 3.7 K/mm3 (4.4-11.0)
[2024-05-21 08:18] VITALS: BP 147/79; PULSE 17; RESP 18; TEMP 36.2; O2SAT 100
[2024-05-21] MEDS: Acetaminophen 325 MG Tablet 650 MG PO (08:26)
[2024-05-21 08:58] LABS: Anion Gap 11 (5-15); BUN 12 mg/dL (7-18); BUN/Creat Ratio 19.2 RATIO (10-20); Calcium,Total 9.3 mg/dL (8.5-10.1); Chloride 105 mmol/L (98-107); Cholesterol 252 mg/dL (200); Creatinine, Serum 0.62 mg/dL (0.55-1.02); EST Glomerular Filtration Rate 104 mL/min (>60); Est Glom Filt Rate - Afr Amer 126 mL/min (>60); Estimated Creatinine Clearance 105.39 ml/min; Glucose 115 mg/dL (74-106); High Density Lipoprotein 43 mg/dL; Potassium 3.5 mmol/L (3.5-5.1); Sodium Level 137 mmol/L (136-145); Triglycerides 139 mg/dL; Very Low Density Lipoprotein 28 mg/dL (5-40)
--- NOTE | 2024-05-21 11:53 | NEURO.CONS ---
Assessment and Plan: Neuro Assessment/Plan TACOS GOODE is a 58 F with a past medical history of ovarian cancer, HTN, being evaluated by Teleneurology for L facial swelling and numbness. On history, atypical onset but no clear symptoms that localize to a dental issue. Exam with L cheek swelling and L chin numbness localizing to a possible distal V3 lesion and possible mental neuropathy. Imaging is benign for ischemia which given the length of her symptoms, make cerebrovascular disease unlikely. Swelling is atypical but given history of metastatic cancer and numb chin syndrome, concern for a lesion causing symptoms. Diagnosis: facial swelling and numb chin syndrome Plan: - consider CT of maxillofacial region or dental xray - if normal consider outpatient PET with oncology I personally attended this patient and spent a total time of 45minutes evaluating this patient including clinical assessment, review of chart, medical history imaging, and determining appropriate treatment and workup. HPI Consult Data Date of Consult: 05/21/24 HPI Narrative HPI Narrative: TACOS GOODE, is a 58 F who presented to [facility] ED with left facial numbness with mild swelling and elevated blood pressure. The symptoms started around 7 PM last night and then persisted into today. She checked her blood pressure this morning and it was over 200 systolic, so she came in for further evaluation. Patient has history of hypertension and hyperlipidemia, follows with [facility]. Was previously on losartan but had an episode about 6 months ago concerning for possible angioedema so losartan was discontinued and she was started on atenolol. She takes her blood pressure occasionally at home and notes that it typically runs in the 130s to 140s systolic. She is never had a reading higher than 170 she states. In the ED her initial blood pressure was 207/82. NIHSS score of 1. CT brain and CTA head/neck were unremarkable. Prior to giving any antihypertensive medication, blood pressure improved to the 130s systolic. Case was discussed with teleneurology and given her elevated blood pressure and facial numbness with risk factors, hospitalist was contacted for admission for stroke rule out. I saw the patient at bedside in the ED, was present. Patient was sitting up comfortably in bed, conversing normally, in no acute distress. She reported left sided facial swelling with mild numbness. She was more concerned about the swelling and numbness for me. On my exam, she appeared to have very mild left cheek swelling. No facial droop or facial weakness noted. No swelling of the palate noted on exam. She denied any upper or lower extremity weakness or numbness/tingling. No other acute concerns this time. Neurologic History Still has the numbness in the L face. Two nights ago she noted swelling in the L face and swelling badly enough she needed to take an anti-histamine. Her blood pressure became really high and went dizzy as well. The numbness and swelling happened together. Has a headache now and last night. No known allergies that she knows of. Has had more stevia than usual in her diet. Her lip did start getting tingling. The swelling is about the same as it was before. Does not take Vit K usually, sometimes will take D and K together. No eye pain, no diplopia. No swelling or numbness in arms or legs. Voice sounds about the same as usual. Has a history of ovarian cancer, has been cancer free for 10 years. No tooth pain, no jaw pain, no difficulty chewing, no numbness or tingling. No change in taste or salivation [facility] Medical History Hypothyroidism Abnormal electrocardiogram Obesity Nonrheumatic mitral (valve) prolapse Essential hypertension Hyperlipidemia Fatty liver History of ovarian cancer Home Medications ?Medication ?Instructions ?Recorded ?Last Taken ?Type levothyroxine 75 mcg tablet 75 mcg PO DAILY 02/01/21 05/20/24 History cholecalciferol (vitamin D3) 125 125 mcg PO DAILY 06/29/23 Unknown History mcg (5,000 unit) capsule vitamin K2 100 mcg capsule 100 mcg PO DAILY 06/29/23 Unknown History atenolol 25 mg tablet 25 mg PO .dailyQHS HR 05/20/24 05/19/24 History Allergy/AdvReac Type Severity Reaction Status Date / Time losartan Allergy Severe Angioedema Verified 05/20/24 12:44 amlodipine Allergy Gingival Verified 05/20/24 12:44 enlargement ampicillin Allergy Rash Verified 05/20/24 12:44 doxycycline Allergy Unknown Verified 05/20/24 12:44 Sulfa (Sulfonamide Allergy Unknown Verified 05/20/24 12:44 Antibiotics) tetracycline (Tetracycline) Allergy Unknown Verified 05/20/24 12:44 carvedilol AdvReac Severe Marked leg Verified 05/20/24 12:44 swelling and weight gain erythromycin base AdvReac Other Verified 05/20/24 12:44 (Erythromycin Base) lisinopril AdvReac throat Verified 05/20/24 12:44 dryness Family History Mother Diabetes Heart disease Hypertension Rheumatoid arthritis Surgical History (Updated 05/20/24 @ 17:07 by Felipa Laguerre) S/P carpal tunnel release History of colonoscopy (2012) History of tonsillectomy History of total hysterectomy History of cholecystectomy History of section Social History household members: spouse Smoking Status: Never smoker alcohol intake: current alcohol intake frequency: other substance use type: does not use Vital Signs Vital Signs Vital Signs: 05/20/24 12:40 05/20/24 13:33 05/20/24 13:40 Temperature 97.4 F L Temperature Source Temporal Pulse Rate 82 69 Pulse Strength Respiratory Rate 16 15 Respiratory Effort Normal Respiratory Depth Respiratory Pattern Normal Blood Pressure 207/82 H 177/85 H Blood Pressure Mean 123 115 Blood Pressure Source Blood Pressure Position Blood Pressure Location Pulse Ox 97 100 Oxygen Delivery Method Room Air Room Air 05/20/24 13:45 05/20/24 14:00 05/20/24 14:12 Temperature Temperature Source Pulse Rate 72 79 78 Pulse Strength Respiratory Rate 11 L 14 16 Respiratory Effort Respiratory Depth Respiratory Pattern Blood Pressure 184/86 H 207/88 H 207/88 H Blood Pressure Mean 114 118 127 Blood Pressure Source Blood Pressure Position Blood Pressure Location Pulse Ox 96 97 99 Oxygen Delivery Method Room Air 05/20/24 14:17 05/20/24 14:27 05/20/24 14:42 Temperature Temperature Source Pulse Rate 84 69 Pulse Strength Respiratory Rate 21 H 18 Respiratory Effort Respiratory Depth Respiratory Pattern Blood Pressure 172/77 H 152/58 H Blood Pressure Mean 108 89 Blood Pressure Source Blood Pressure Position Blood Pressure Location Pulse Ox 96 100 99 Oxygen Delivery Method Room Air Room Air Room Air 05/20/24 15:12 05/20/24 15:18 05/20/24 15:30 Temperature 98.0 F 98 F Temperature Source Oral Pulse Rate 63 66 66 Pulse Strength Respiratory Rate 15 15 19 H Respiratory Effort Respiratory Depth Respiratory Pattern Blood Pressure 132/68 H 132/68 H 153/69 H Blood Pressure Mean 89 89 97 Blood Pressure Source Blood Pressure Position Blood Pressure Location Pulse Ox 97 98 99 Oxygen Delivery Method Room Air Room Air 05/20/24 16:30 05/20/24 20:15 05/20/24 21:00 Temperature 98.3 F 97.7 F L Temperature Source Oral Oral Pulse Rate 60 61 Pulse Strength Respiratory Rate 16 15 Respiratory Effort Respiratory Depth Respiratory Pattern Blood Pressure 158/78 H 151/74 H Blood Pressure Mean 104 99 Blood Pressure Source Monitor Monitor Blood Pressure Position Semi-Fowlers Semi-Fowlers Blood Pressure Location Left Arm Right Arm Pulse Ox 95 97 98 Oxygen Delivery Method Room Air Room Air Room Air 05/20/24 21:34 05/21/24 01:50 05/21/24 02:05 Temperature 97.6 F L Temperature Source Oral Pulse Rate 55 L Pulse Strength Respiratory Rate 15 Respiratory Effort Normal Respiratory Depth Normal Respiratory Pattern Normal Blood Pressure 114/69 Blood Pressure Mean 84 Blood Pressure Source Monitor Blood Pressure Position Supine Blood Pressure Location Right Arm Pulse Ox 95 Oxygen Delivery Method Room Air Room Air Room Air 05/21/24 05:59 05/21/24 08:10 05/21/24 08:18 Temperature 97.5 F L 97.1 F L Temperature Source Oral Temporal Pulse Rate 64 17 L Pulse Strength Normal (2+) Respiratory Rate 15 18 Respiratory Effort Respiratory Depth Respiratory Pattern Blood Pressure 152/79 H 147/79 H Blood Pressure Mean 103 101 Blood Pressure Source Monitor Monitor Blood Pressure Position Sitting Sitting Blood Pressure Location Right Arm Right Arm Pulse Ox 100 100 Oxygen Delivery Method Room Air Room Air 05/21/24 08:19 Temperature Temperature Source Pulse Rate Pulse Strength Respiratory Rate Respiratory Effort Normal Non-Labored Respiratory Depth Normal Respiratory Pattern Normal Blood Pressure Blood Pressure Mean Blood Pressure Source Blood Pressure Position Blood Pressure Location Pulse Ox Oxygen Delivery Method Room Air Weight Weight: 86.7 kg Body Mass Index (BMI) 32.8 EEG Results Procedure Details EEG Procedure Details: TACOS GOODE is a 58 year old F with a past medical history of , who presents for evaluation of Electroencephalogram on DATE at TIME NIHSS NIHSS Nursing Documentation NIHSS Nursing Documentation: NIH Stroke Scale Start: 05/20/24 13:45 Freq: Status: Discharge Protocol: Activity Type Activity Date Activity User E-sign Co-sign Detail Recorded Client Recorded Date Recorded By Document 05/20/24 13:45 STAN [id number] 05/20/24 13:45 STAN 05/20/24 13:45 NIH Stroke Scale [NIHSS] A score of 0 is normal or asymptomatic . Total possible score is 42. Inpatient: RN or Physician to activate a stroke alert for onset of new stroke symptoms or with NIHSS increase >/= 3 points. Following change in neurological status, NIHSS will be performed per physician order or more frequently PRN. -1a. Level of Consciousness Alert; keenly responsive -1b. LOC Questions Answers BOTH questions correctly. -1c. LOC Commands Performs both tasks correctly . -2. Best Gaze Normal -3. Visual No visual loss -4. Facial Palsy Normal symmetrical movements -5a. Left Arm No drift; arm holds 90 (or 45 ) degrees for full 10 seconds -5b. Right Arm No drift; arm holds 90 (or 45 ) degrees for full 10 seconds -6a. Left Leg No drift; leg holds 30-degree position for full 5 seconds -6b. Right Leg No drift; leg holds 30-degree position for full 5 seconds -7. Limb Ataxia Absent -8. Sensory Normal; no sensory loss -9. Best Language No aphasia; normal -10. Dysarthria Normal -11. Extinction and Inattention No abnormality -Total 0 Query Text:A score of 0 is normal or asymptomatic. Total possible score is 42 . ED: Notify Physician for NIHSS increase by > / = 3 points. Inpatient: RN or Physician to activate a stroke alert for NIHSS increase of > / = 3 points. NIHSS: Ischemic Stroke/TIA Start: 05/20/24 16:52 Text: For PCU Patients: NIH and Neuro Check every 4 Status: Complete hours, PRN and with change in RN caregiver. Freq: [id number] Protocol: Activity Type Activity Date Activity User E-sign Co-sign Detail Recorded Client Recorded Date Recorded By Document 05/21/24 05:59 [id number] 05/21/24 06:03 05/21/24 05:59 -1a. Level of Consciousness Alert; keenly responsive -1b. LOC Questions Answers BOTH questions correctly. -1c. LOC Commands Performs both tasks correctly . -2. Best Gaze Normal -3. Visual No visual loss -4. Facial Palsy Normal symmetrical movements -5a. Left Arm No drift; arm holds 90 (or 45 ) degrees for full 10 seconds -5b. Right Arm No drift; arm holds 90 (or 45 ) degrees for full 10 seconds -6a. Left Leg No drift; leg holds 30-degree position for full 5 seconds -6b. Right Leg No drift; leg holds 30-degree position for full 5 seconds -7. Limb Ataxia Absent -8. Sensory Normal; no sensory loss -9. Best Language No aphasia; normal -10. Dysarthria Normal -11. Extinction and Inattention No abnormality -Total 0 Query Text:A score of 0 is normal or asymptomatic. Total possible score is 42 . ED: Notify Physician for NIHSS increase by > / = 3 points. Inpatient: RN or Physician to activate a stroke alert for NIHSS increase of > / = 3 points. Coma Scale [Assess] -Eye Opening Spontaneous -Motor Obeys Commands -Verbal Oriented [Total] -Coma Scale Total 15 Physical Exam Narrative -? General: Laying comfortably in bed; in no acute distress. -? HENT: Normal oropharynx and mucosa. Normal external appearance of ears and nose. Exophthalmos. -? Neck: Supple, no pain or tenderness -? CV:? No peripheral edema. -? Pulmonary:? Normal respiratory effort. -? Ext: No cyanosis, edema, or deformity -? Skin: No rash. Normal palpation of skin.? -? Musculoskeletal: full range of motion; no joint tenderness. Normal digits and nails by inspection. No clubbing. -? NEURO: -? Mental Status: The patient was alert and oriented to time, place, and person. Normal recent/remote memory, concentration, and general fund of knowledge. -? Language: speech is clear.? Naming, repetition, fluency, and comprehension intact. -? Cranial Nerves: PERRL 3 mm/brisk. EOMI, visual joy full, deep nasolabial fold asymmetry but puffier on the L. no facial weakness or weaknes in eye closure. , facial sensation diminished on the L chin, hearing intact, tongue midline, no evidence of atrophy or fibrillations. -? Motor: normal bulk, tone, and strength throughout. No pronator drift or satelliting. Upper and lower extremities equal bilaterally. -? Detailed strength exam as performed by the nurse/ISHAN and witnessed by the physician: R L SA 5 5 EE EF 5 5 WE WF Can Top Setter 5 5 HF 5 5 KE 5 5 KF DF PF -? Tone: is normal and bulk is normal -? Sensation- Intact to light touch bilaterally -? Coordination: No dysmetria on [id number], finger follow finger or [id number]. -? Gait- Gait initiation was normal. Narrow base with good heel strike and stride length was observed during ambulation. Turns were in stride. Patient was able to walk normally in tandem. Romberg was normal. Lab / Micro Data 05/21/24 06:57 05/21/24 06:57 Labs: Laboratory Results - last 24 hr 05/20/24 13:28: WBC 4.9, RBC 4.71, Hgb 13.8, Hct 41.3, MCV 87.7, MCH 29.3, MCHC 33.4, RDW Std Deviation 40.9, RDW Coeff of Nestor 12.6, Plt Count 244, MPV 8.6, Immature Gran % (Auto) 0.400, Neut % (Auto) 62.2, Lymph % (Auto) 31.3, Stark % (Auto) 5.1, Eos % (Auto) 0.8, Baso % (Auto) 0.2, Absolute Neuts (auto) 3.1, Absolute Lymphs (auto) 1.54, Nucleated RBC % 0, Sodium 137, Potassium 3.5, Chloride 104, Carbon Dioxide 25.0, Anion Gap 8, BUN 10, Creatinine 0.73, Estim Creat Clear Calc 88.61, Est GFR (MDRD) Af Amer 105, Est GFR (MDRD) Non-Af 87, BUN/Creatinine Ratio 13.7, Glucose 131 H, Hemoglobin A1c 6.6 H, Calcium 9.4, Troponin I High Sens < 3 L, TSH 0.964 05/20/24 14:15: PT 16.3 H, INR 1.3, APTT 24.3 05/20/24 14:32: POC Glucose 109 H 05/21/24 06:57: WBC 3.7 L, RBC 4.66, Hgb 13.8, Hct 41.7, MCV 89.5, MCH 29.6, MCHC 33.1, RDW Std Deviation 41.4, RDW Coeff of Nestor 12.8, Plt Count 234, MPV 8.5, Immature Gran % (Auto) 0.300, Neut % (Auto) 50.6, Lymph % (Auto) 39.7, Stark % (Auto) 6.2, Eos % (Auto) 2.4, Baso % (Auto) 0.8, Absolute Neuts (auto) 1.9 L, Absolute Lymphs (auto) 1.47, Nucleated RBC % 0, Sodium 137, Potassium 3.5, Chloride 105, Carbon Dioxide 22.0, Anion Gap 11, BUN 12, Creatinine 0.62, Estim Creat Clear Calc 105.39, Est GFR (MDRD) Af Amer 126, Est GFR (MDRD) Non-Af 104, BUN/Creatinine Ratio 19.2, Glucose 115 H, Calcium 9.3, Triglycerides 139, Cholesterol 252 H, LDL Cholesterol 181 H, VLDL Cholesterol 28, HDL Cholesterol 43 Rhythm Strip Rhythm Strip: Sinus Rhythm Rate: 69 Ectopy: None Imaging Radiology Impression Brain CT 05/20/24 14:12 IMPRESSION: 1. Chronic involutional changes of the brain. 2. Concern for stroke/positive symptomatology should be further evaluated with CT brain perfusion/CTA or MRI of the brain for further assessment. N.B. : The above Results were Read Back by Lg Cabral MD to Harry Burnham MD, and understanding confirmed on 05/20/2024 14:28:22 (ET). Electronically Signed: Lg Cabral MD at 14:29 EST , ADDENDUM: 05/20/24 8579 IMPRESSION: 1. Chronic involutional changes of the brain. 2. Concern for stroke/positive symptomatology should be further evaluated with CT brain perfusion/CTA or MRI of the brain for further assessment. N.B. : The above Results were Read Back by Lg Cabral MD to Harry Burnham MD, and understanding confirmed on 05/20/2024 14:28:22 (ET). Electronically Signed: Lg Cabral MD at 14:29 EST , Chest X-Ray 05/20/24 14:12 IMPRESSION: Degenerative changes, as described above. No demonstrated acute cardiopulmonary process. Electronically Signed: Lg Cabral MD at 15:20 EST , Head/Neck CTA 05/20/24 14:12 IMPRESSION: No demonstrated large vessel occlusion (LVO) 1. Head CTA: There is no demonstrated aneurysm of the cheesh[place]na of [place]. No demonstrated thrombus or occlusion or hemodynamically significant stenosis of the major intracranial arteries. Fully patent and normal enhancement of the major intracranial venous sinuses, with no evidence of venous sinus thrombosis or occlusion. 2. Neck CTA: Mild atherosclerotic plaque and minimal stenosis of the left carotid bulb of the neck 3. CT Brain Perfusion and/or MRI of the brain can be obtained for small infarcts and perforating vessel disease not detected by CT or CTA. N.B. : The above Results were Read Back by Lg Cabral MD to Harry Burnham MD, and understanding confirmed on 05/20/2024 14:54:08 (ET). Electronically Signed: Lg Cabral MD at 14:55 EST , ADDENDUM: 05/20/24 1502 IMPRESSION: No demonstrated large vessel occlusion (LVO) 1. Head CTA: There is no demonstrated aneurysm of the cheesh[place]na of [place]. No demonstrated thrombus or occlusion or hemodynamically significant stenosis of the major intracranial arteries. Fully patent and normal enhancement of the major intracranial venous sinuses, with no evidence of venous sinus thrombosis or occlusion. 2. Neck CTA: Mild atherosclerotic plaque and minimal stenosis of the left carotid bulb of the neck 3. CT Brain Perfusion and/or MRI of the brain can be obtained for small infarcts and perforating vessel disease not detected by CT or CTA. N.B. : The above Results were Read Back by Lg Cabral MD to Harry Burnham MD, and understanding confirmed on 05/20/2024 14:54:08 (ET). Electronically Signed: Lg Cabral MD at 14:55 EST , Brain MRI 05/20/24 15:47 IMPRESSION: 1. No acute CVA or other specific acute abnormality. 2. Several scattered high signal T2-inversion recovery cortical foci, nonspecific, similar to 2020. These can be seen with migraines, microvascular disease, sequela of demyelinating disease. Electronically Signed: Neetu Mack MD at 23:28 EST , Active Medications Active Medications Active Medications: Current Medications Generic Name Dose Route Start Last Admin Trade Name Freq PRN Reason Stop Dose Admin Acetaminophen 650 mg 05/20/24 16:52 05/21/24 08:26 Acetaminophen 325 Mg Tablet PO 650 mg Q6H PRN PRN Administration Pain 1-10 Or Fever>100.7 Aspirin 81 mg 05/21/24 08:00 05/21/24 08:27 Aspirin 81 Mg Tab.Chew PO Not Given BREAKFAST IGOR Atorvastatin Calcium 80 mg 05/20/24 22:00 05/20/24 21:28 Atorvastatin Calcium 80 Mg Tablet PO Not Given QHS IGOR Cholecalciferol 125 mcg 05/21/24 10:00 05/21/24 08:27 Cholecalciferol (Vit D3) 125 Mcg Capsule (5,000 Units) PO Not Given DAILY [facility] Hydralazine HCl 5 mg 05/20/24 16:52 Hydralazine 20 Mg/Ml Vial IV 05/21/24 16:52 Q30M PRN maintain BP parameters with HR <60 Sodium Chloride 100 mls @ 15 mls/hr 05/20/24 17:04 IV .Q6H40M PRN Saline Flush Sodium Chloride 100 mls @ 15 mls/hr 05/20/24 17:04 IV .Q6H40M PRN Additional IVPB Infusion Labetalol HCl 20 mg 05/20/24 14:12 Labetalol 20mg/4ml Syringe IV 05/21/24 14:12 X1 PRN Blood Pressure Labetalol HCl 10 - 20 mg 05/20/24 16:52 Labetalol 20mg/4ml Syringe IV 05/21/24 16:52 Q10M PRN PRN maintain BP parameters with HR >/=60 Levothyroxine Sodium 75 mcg 05/21/24 06:00 05/21/24 06:04 Levothyroxine 75 Mcg Tablet PO 75 mcg DAILY@0600 IGRO Administration Melatonin 3 mg 05/20/24 16:52 Melatonin 3 Mg Tablet PO QHS PRN PRN INSOMNIA Ondansetron HCl 4 mg 05/20/24 16:52 Ondansetron 4 Mg/2 Ml Vial IV Q8H PRN PRN NAUSEA/VOMITING Sodium Chloride 10 - 40 ml 05/20/24 17:04 05/20/24 21:28 0.9% Saline Lock 10 Ml Syringe IV 10 ml UD PRN Administration SALINE FLUSH
--- NOTE | 2024-05-21 13:25 | PCM.DC ---
Discharge Instructions Diet Discharge Diet: No restrictions DC O2, CPAP, BIPAP needs Home O2 Discharge instructions: No Dressing / Incision Discharge Activity: Return to Normal Activity Weight Bearing Status: Full weight bearing Follow Up Care Test Results: Test results from this visit will be discussed in further detail at your follow-up appointment, if applicable. Discharge Plan Admission Admit Date/Time: 05/20/24 15:41 Primary Reason for Your Visit: facial numbness Attending Provider: Severiano Montoya Primary Care Provider: Dick Corrigan Consulting Providers: Elie Hart; Destiny Blackmon; Zeynep Dial; Shani Hobson; Analia Iqbal; Guillermo Dutton; Renetta Roberts; Gio Samayoa; Jaquan Anaya; Micky Phillips; Ana Echols; Ronal Justice; Nica Luke; Amanda Baer; Juli Abernathy; Rah Franks; Rayshawn Watkins; Jose Rodriguez; Alana Casas; Lauren Berry; Misha Morgan Discharge Orders/Prescriptions Prescriptions: Continued cholecalciferol (vitamin D3) 125 mcg (5,000 unit) capsule 125 mcg PO DAILY vitamin K2 100 mcg capsule 100 mcg PO DAILY levothyroxine 75 mcg tablet 75 mcg PO DAILY Patient Comments: TAKE 1 TABLET BY MOUTH ONCE DAILY atenolol 25 mg tablet [facility]errals / Follow Up: Dick Corrigan MD [Primary Care Provider] - See Referral Note (in two weeks) Disposition Disposition (needs filled in before D/C Order can be placed): Home, Self Care
--- NOTE | 2024-05-21 13:29 | DS.PCM_ITS ---
Providers Date of Admission: 05/20/24 Date of Discharge: 05/21/24 Primary Care Physician: Dr. Dick Corrigan MD Consultations 05/20/24 16:52 Consult: Tele-Neurology Routine Consulting Provider: [facility] Reason for Consult: Acute Ischemic Stroke/TIA EMERGENT Consult: No Notified: Yes Date Notified: 05/20/24 Time Notified: 17:57 Method of Notification: Answering Service Nursing Unit Staff Notify [facility] of Tele-Neurology Consult: Yes Reason For Visit: STROKELIKE SYMPTOMS Diagnosis Discharge Diagnosis (1) Left facial numbness: Status: Acute Code(s): R20.0 - Anesthesia of skin (2) Accelerated hypertension: Status: Acute Code(s): I10 - Essential (primary) hypertension Plan 1. Paresthesias of the left lower face-etiology unclear #2 essential hypertension #3 hypothyroidism Medications at Discharge Home Medications levothyroxine 75 mcg tablet 75 mcg PO DAILY thyroid 02/01/21 cholecalciferol (vitamin D3) 125 mcg (5,000 unit) capsule 125 mcg PO DAILY vitamin 06/29/23 vitamin K2 100 mcg capsule 100 mcg PO DAILY vitamin 06/29/23 atenolol 25 mg tablet 25 mg PO .dailyQHS HR 05/20/24 Hospital Course Operations None Procedures 2-D Echocardiogram Summary of Care Provided Minutes Spent on Discharge: 30 Hospital Course: This 58-year-old white female was seen in the emergency room at [facility] with complaints of numbness over her left cheek/left lower face that happened the night before, she also felt that the area was swollen even though she could not detect any objective swelling, her was not able to detect swelling either. Symptoms persisted and she went to the emergency room at [facility] for evaluation, she had checked her blood pressure at home and it was over 200 and felt that she should be evaluated. A stroke alert was called, initial blood pressure in the emergency room was 207/82, NIH stroke score was 1. A CTA of the head and neck as well as a CT of the brain was obtained which were unremarkable. Stroke neurology recommended treating her blood pressure if it was over 200 however on reevaluation her blood pressure was 132/80. No thrombolytics were recommended, and lab work was unremarkable. Patient was placed in observation status on PCU, NIH stroke scores were monitored, she was seen by teleneurology and underwent an MRI of the brain which was unremarkable. Teleneurology did not feel that the patient had a TIA or stroke and did not recommend additional treatment. Teleneurology recommended additional x-rays of the face which the patient declined to have, CT of the brain did not show any evidence of sinus disease. Patient's echocardiogram was unremarkable except for some mild aortic regurg. On 05/21/2024, patient was seen and examined: On examination she appeared in good health and spirits, she does not appear to be in any distress. Vital signs as documented. Skin warm and dry and without overt rashes. Neck without JVD, thyroid appears normal, trachea is midline, neck is supple. Lungs clear, normal air movement was noted. Heart exam notable for regular rhythm, a 1/6 systolic murmur was noted at the left sternal border, there were no rubs or gallops. Abdomen unremarkable and without evidence of organomegaly, masses, or abdominal aortic enlargement, bowel sounds are present in all 4 quadrants, no abdominal tenderness was noted. Extremities nonedematous, no cyanosis was noted, no clubbing was noted. Neuro: Cranial nerves II through XII are grossly intact, no focal motor deficits were noted, sensation to light touch and pinprick is intact, motor exam 5/5 throughout. Psych: Patient is alert and oriented x3, she does not appear anxious or depressed, she does not appear agitated. On 05/21/2024, patient appears stable for discharge home Weight / BMI Weight Weight: 86.7 kg Body Mass Index (BMI) 32.8 ABG / Lab / Microbiology Data 05/21/24 06:57 05/21/24 06:57 Laboratory: Laboratory Results - last 24 hr 05/21/24 06:57: WBC 3.7 L, RBC 4.66, Hgb 13.8, Hct 41.7, MCV 89.5, MCH 29.6, MCHC 33.1, RDW Std Deviation 41.4, RDW Coeff of Nestor 12.8, Plt Count 234, MPV 8.5, Immature Gran % (Auto) 0.300, Neut % (Auto) 50.6, Lymph % (Auto) 39.7, [place] % (Auto) 6.2, Eos % (Auto) 2.4, Baso % (Auto) 0.8, Absolute Neuts (auto) 1.9 L, Absolute Lymphs (auto) 1.47, Nucleated RBC % 0, Sodium 137, Potassium 3.5, Chloride 105, Carbon Dioxide 22.0, Anion Gap 11, BUN 12, Creatinine 0.62, Estim Creat Clear Calc 105.39, Est GFR (MDRD) Af Amer 126, Est GFR (MDRD) Non-Af 104, BUN/Creatinine Ratio 19.2, Glucose 115 H, Calcium 9.3, Triglycerides 139, C holesterol 252 H, LDL Cholesterol 181 H, VLDL Cholesterol 28, HDL Cholesterol 43 Radiography Diagnostic Testing: Radiology Impression Brain MRI 05/20/24 15:47 IMPRESSION: 1. No acute CVA or other specific acute abnormality. 2. Several scattered high signal T2-inversion recovery cortical foci, nonspecific, similar to 2020. These can be seen with migraines, microvascular disease, sequela of demyelinating disease. Electronically Signed: Neetu Mack MD at 23:28 EST Reading Location ID and State: [address] [place] [address] Tel , Service support , Echocardiogram 05/20/24 15:47 Interpretation Summary The estimated ejection fraction is 65 %. Diastolic function is indeterminate. Trivial mitral valve insufficiency. Mild (1+) aortic valve insufficiency. Ordering Physician: Misha Morgan Referring Physician: Dick Corrigan Performed By: Tierra Aggarwal, MAGED, RVT D/C Instructions Discharge Diet: No restrictions Weight Bearing Status: Full weight bearing DC O2, CPAP, BIPAP Needs Home O2 Discharge instructions: No Meaningful Use Info Meaningful Use Meaningful Use Diagnoses (Choose all that apply): None applicable Ischemic Stroke Statin Dosing Therapy Reference: STATIN DOSE THERAPY REFERENCE: * Patients > 75 years receive moderate or high dose statin therapy. * Patients 75 years or YOUNGER should receive HIGH intensity statin dose unless contraindicated. You will be required to document reason for non-treatment if statin daily dose does not meet guidelines. HIGH DOSE STATIN THERAPY DAILY Atorvastatin > than or = to 40 mg Rosuvastatin > than or = to 20 mg Amlodipine + Atorvastatin > than or = to 2.5/40 mg Ezetimibe + Simvastatin 10/80 mg Simvastatin 80mg Discharge Plan Admission Admit Date/Time: 05/20/24 15:41 Primary Reason for Your Visit: facial numbness Attending Provider: Severiano Montoya Primary Care Provider: Dick Corrigan Consulting Providers: Elie Hart; Destiny Blackmon; Zeynep Dial; Shani Hobson; Analia Iqbal; Guillermo Dutton; Renetta Roberts; Gio Samayoa; Jaquan Anaya; Micky Phillips; Ana Echols; Ronal Justice; Nica Luke; Amanda Baer; Juli Abernathy; Rah Franks; Rayshawn Watkins; Jose Rodriguez; Alana Casas; Lauren Berry; Misha Morgan Discharge Orders/Prescriptions Prescriptions: Continued cholecalciferol (vitamin D3) 125 mcg (5,000 unit) capsule 125 mcg PO DAILY vitamin K2 100 mcg capsule 100 mcg PO DAILY levothyroxine 75 mcg tablet 75 mcg PO DAILY Patient Comments: TAKE 1 TABLET BY MOUTH ONCE DAILY atenolol 25 mg tablet 25 mg PO .[facility] Referrals / Follow Up: Dick Corrigan MD [Primary Care Provider] - See Referral Note (in two weeks) Disposition Disposition (needs filled in before D/C Order can be placed): Home, Self Care Charges/Coding Visit Charges Inpatient E&M: 89023 Disch Hosp
--- NOTE | 2024-05-21 13:44 | PHA.DC.MR.R ---
Pharmacy [place] Med Reconciliation Pharmacy Service has performed discharge medication reconciliation for this patient. The patient's discharge medication list was reviewed for discrepancies and discrepancies were resolved. Medications at Discharge Home Medications levothyroxine 75 mcg tablet 75 mcg PO DAILY 02/01/21 cholecalciferol (vitamin D3) 125 mcg (5,000 unit) capsule 125 mcg PO DAILY 06/29/23 vitamin K2 100 mcg capsule 100 mcg PO DAILY 06/29/23 atenolol 25 mg tablet 25 mg PO .[facility] HR 05/20/24
--- NOTE | 2024-05-21 13:59 | CASEMGMT ---
Patient has order for discharge. RN CM in to discuss needs at discharge. Patient independent in room. Patient denies needs or help at discharge. Patient had no further questions or concerns.
--- NOTE | 2024-05-21 14:09 | CASEMGMT ---
SW did not complete a PHQ9 with patient as she did not have a stroke. Jaelyn SAMSON
== END 2024-05-21 13:29 | disposition home or self-care (01) ==
LOC: ED 15:34 → PCU 16:07
PROVIDERS: Admitting Provider Hospitalist; Emergency Provider Emergency Medicine; PCP Family Medicine; Referring Provider Emergency Medicine; Visit Provider Internal Medicine
DX: R20.0 Anesthesia of skin (principal); E78.5 Hyperlipidemia, unspecified; E03.9 Hypothyroidism, unspecified; E66.811 Obesity, class 1; Z68.32 Body mass index [BMI] 32.0-32.9, adult; I10 Essential (primary) hypertension; R22.0 Localized swelling, mass and lump, head; Z79.899 Other long term (current) drug therapy; I08.3 Combined rheumatic disorders of mitral, aortic and tricuspid valves; R94.31 Abnormal electrocardiogram [ECG] [EKG]
CPT/HCPCS: 36415; 70450; 70496; 70498; 70551; 71045; 80048; 80061; 82962; 83036; 84443; 84484; 85025; 85610; 85730; 93005; 93306; 94762; 97802; 99221; 99285; Q9967; A4216; G0378

== ENCOUNTER 2025-02-13 01:54 | Emergency (ER) | payer OTHER, SELFPAY ==
[2025-02-13 01:56] VITALS: BP 210/94; PULSE 69; RESP 16; TEMP 36.6; O2SAT 99; BMI 33.8
[2025-02-13 02:19] VITALS: BP 169/70
[2025-02-13 02:27] LABS: Hematocrit 40.7 % (37-47); Hemoglobin 14.3 g/dL (12.0-15.0); Immature Granulocytes Count 0.020 X10^3/uL (0.0-0.0); Mean Corp Hgb Conc 35.1 g/dL (32-36); Mean Corpuscular Volume 85.1 fL (81-99); Mean Platelet Vol. 8.3 fl (6.2-12.0); NRBC Flagged by Analyzer 0 % (0-5); Platelet Count 262 K/mm3 (150-450); RBC Distribution Width CV 12.2 % (11.6-14.6); RBC Distribution Width SD 37.7 fl (35.1-43.9); Red Blood Count 4.78 M/mm3 (4.2-5.4); White Blood Count 7.2 K/mm3 (4.4-11.0)
[2025-02-13 02:34] VITALS: BP 138/85
[2025-02-13 03:24] LABS: Anion Gap 14 (5-15); BUN 13 mg/dL (4-19); BUN/Creat Ratio 18.5 RATIO (10-20); Calcium,Total 9.4 mg/dL (7.6-11.0); Carbon Dioxide 25.9 mmol/L (21.0-32.0); Chloride 94 mmol/L (98-108); Estimated Creatinine Clearance 96.44 ml/min (50-250); Glucose 171 mg/dL (70-99); Potassium 3.5 mmol/L (3.3-5.1)
[2025-02-13 03:29] LABS: D-Dimer Quantitative (DVT/PE) 0.27 FEU/ug/m (0.27-0.49)
[2025-02-13 03:34] VITALS: BP 136/67
[2025-02-13 03:54] VITALS: BP 143/75; PULSE 59; RESP 16; TEMP 36.6; O2SAT 96
== END 2025-02-13 04:02 | disposition home or self-care (01) ==
PROVIDERS: Emergency Provider Emergency Medicine; PCP Family Medicine; Visit Provider Emergency Medicine
DX: I10 Essential (primary) hypertension (principal); E03.9 Hypothyroidism, unspecified; E78.5 Hyperlipidemia, unspecified; Z79.899 Other long term (current) drug therapy; E66.9 Obesity, unspecified
CPT/HCPCS: 70450; 80048; 84443; 85025; 85379; 93005; 96374; 99282; A4216